=== PATIENT | female | born 1950 | race Caucasian/White ===

== ENCOUNTER 2018-08-30 08:21 | Day surgery (SDC) | payer MEDICARE, OTHER, SELFPAY ==
--- NOTE | 2018-08-30 | COLBX_PTH ---
PATIENT: VELMA AUGUSTINE LOC: EN U#:[id number] AGE/SX: 68/F ROOM: RE08/30/[address]: Dr. Marilynn Gallegos MD : [id number] BED: DIS: 08/30/2018 SPEC #: [id number] RECD: 08/30/18 11:51 STATUS: OMAR EMELINA #: [id number] ÁNGELA: 08/30/18 00:[address]: Marilynn Gallegos DEPT: SURGICAL PATHOLOGY RECD BY: Sobeida Mercer ENTERED: 08/30/18 14:20 SP TYPE: COLON BX OTHR DR: Dr. Kanwal Guillermo MD Tissues: A - Cecum, NOS B - Ascending colon C - Ascending colon D - Ascending colon E - Ascending colon F - Transverse colon G - Transverse colon Procedures: Surgery Specimen Level IV HEADER OPERATION: Colonoscopy, open access (MAC) PRE-OP DIAGNOSIS: Screening TISSUE SUBMITTED: A. Cecal polyp biopsy, B. Biopsy of proximal ascending colon polyps, C. Biopsy of proximal ascending colon lipoma, D. Biopsy of mid ascending lipoma, E. Biopsy of mid ascending polyp, F. Biopsy of proximal transverse colon polyp, G. Biopsy of mid transverse colon polyp MICROSCOPIC DIAGNOSIS A. Cecal polyp, biopsy: Fragments of tubular adenoma. B. Proximal ascending polyps, biopsy: Fragments of tubular adenoma. C. Proximal ascending colon lipoma: Tubular adenoma. Fragments of benign colonic mucosa. See comment. D. Biopsy of mid ascending lipoma: Fragments of benign colonic mucosa. See comment. E. Mid ascending colon polyp, biopsy: Tubular adenoma. F. Proximal transverse colon polyp, biopsy: Tubular adenoma. G. Mid transverse colon polyp, biopsy: Fragments of tubular adenoma. AM:bettina 08/31/18 COMMENT C. A lipomatous proliferation is not present. Clinical correlation is suggested. D. A lipomatous proliferation is not present. Clinical correlation is suggested. MICROSCOPIC DESCRIPTION Slides are reviewed. GROSS DESCRIPTION A - Received in fixative is one container labeled with the patient's name and designated cecum polyp biopsy. The specimen consists of multiple irregular fragments of light fleipe soft tissue that in aggregate measure 0.5 x 0.5 x 0.1 cm. The specimen is totally submitted in one cassette. B - Received in fixative is one container labeled with the patient's name and designated biopsy of proximal ascending colon polyp. The specimen consists of multiple irregular fragments of light felipe soft tissue that in aggregate measure 1.5 x 0.4 x 0.1 cm. The specimen is totally submitted in one cassette. C - Received in fixative is one container labeled with the patient's name and designated biopsy of proximal ascending colon lipoma. The specimen consists of multiple irregular fragments of light felipe soft tissue that in aggregate measure 1 x 0.3 x 0.1 cm. The specimen is totally submitted in one cassette. D - Received in fixative is one container labeled with the patient's name and designated biopsy of mid ascending lipoma. The specimen consists of multiple irregular fragments of light felipe soft tissue that in aggregate measure 0.6 x 0.3 x 0.1 cm. The specimen is totally submitted in one cassette. E - Received in fixative is one container labeled with the patient's name and designated biopsy of mid ascending polyp. The specimen consists of one irregular fragment of light feliep soft tissue that measures 0.3 x 0.3 x 0.1 cm. The specimen is totally submitted in one cassette. F - Received in fixative is one container labeled with the patient's name and designated biopsy of proximal transverse colon polyp. The specimen consists of one irregular fragment of light felipe soft tissue that measures 0.3 x 0.3 x 0.1 cm. The specimen is totally submitted in one cassette. G - Received in fixative is one container labeled with the patient's name and designated biopsy of mid transverse polyp. The specimen consists of multiple irregular fragments of light felipe soft tissue that in aggregate measure 0.6 x 0.5 x 0.1 cm. The specimen is totally submitted in one cassette. / SJ:rg 08/30/18 TC:5 CPT: 80204 x7
[2018-08-30 08:47] VITALS: BP 110/84; PULSE 100; RESP 18; TEMP 36.3; O2SAT 96; BMI 35.9
--- NOTE | 2018-08-30 09:12 | H&P.OPEN ---
History of Present Illness Date of Admission: 08/30/18 The patient is a 68 year old F presents for screening colonoscopy. Patient's last colonoscopy was by Dr. Esparza 11 years ago per the patient is negative per the patient. Patient is adopted unsure of her family history. Patient states she normally has bowel movements daily occasionally every other day. She may have a small amount of blood in her stool may be once every 2 months. Patient denies any abdominal pain, nausea, vomiting. Past Medical/Surgical History - Planned Operation Planned Operative Procedure/s: cscope open access Date of Operative Procedure: 08/30/18 Permit Signed: No S.O.S: No Is This Patient Having a Total Joint: No - Previous Hospitalizations/Surgeries HX Hospitalizations: No HX of Surgeries: tubal ligation. Laparoscopic cholecystectomy. cscope. left tkr Any Problems With Anesthesia: No You/Your Family Experience Fever (Hyperthermia) With Anes: No - adopted Cholinesterase deficiency: No - Cardiovascular Hx Chest Pain within Last 2 months: No Hx of Irregular Heartbeat and/or Afib: No Hx Heart Attack: No Hx Congestive Heart Failure: No Hx Rheumatic Fever: No Hx Hypertension: No Hx Internal Defibrillator: No Hx Pacemaker: No Hx Cardiac Catheterization: No Hx Cardiac Surgery/Stents/Etc.: No Hx Stress Test: Yes - many yrs ago HX Edema: No Hx Pain in Legs when Walking/Leg Cramps: No - Respiratory Chronic Cough: No HX of Shortness of Breath: Yes - sob with 2 flights of stairs Hx Chronic Obstructive Pulmonary Disease (COPD): No Hx Asthma: No Hx Emphysema: No Hx Sleep Apnea: No Hx Oxygen Use at Home: No Hx Respiratory Tract Infection/Cold (presently): No Do You Snore Loudly (louder than talking or can be heard): No Do You Often Feel Tired/ Fatigued/ Sleepy Dring Daytime?: No Has Anyone Observed You Stop Breathing During Sleep?: No Result (for STOP score): Negative Hx Smoking: No Smoking Status: Never smoker - Gastrointestinal Hx Gastroesophageal Reflux: Yes - in the past Controlled With Meds: No - no meds currently Hx Gastrointestinal Disorders: Yes - ibs Hx Gastrointestinal Bleed: No Hx Ulcer: No Hx Hiatal Hernia: No Difficulty Chewing/Swallowing: No Recent Onset of Swallowing Problems: No Special diet followed at home: Yes - ada Hx Unplanned Weight Loss of 20#: No HX Unplanned Weight Gain of 20#: No - Neurological Hx Seizures: No HX Syncope/Blackout Spells/Unconsciousness: Yes - vertigo Hx CVA/Stroke: No Hx Transient Ischemic Attacks (TIA): No Hx Multiple Sclerosis: No Hx Parkinson's Disease: No Hx Head/Neck Injury: No Hx Headaches: No Hx Back Injury/Pain: Yes - lower back pain prn Recent Onset of Speech Difficulty: No Restless Legs: No Does patient have nerve stimulator: No Patient instructed to have device shut off: No Rep notified?: No - Blood Disorder Hx Leukemia: No Bleeding Tendencies: Yes - brusies easily Hx Deep Vein Thrombosis: Yes - dvt to leg in the past Hx High Cholesterol: Yes - on med Blood Transmitted Disease: No Hx Hepatitis: No Hx Cirrhosis: No Hx Anemia: No Hx Blood Disorders: No - Reproduction Is Patient Lactating: No Hx Hysterectomy: No Hx Tubal Ligation: Yes Are You Post Menopause: Yes - Genitourinary Hx Renal Disease: No Hx Dialysis: No - Musculoskeletal Hx Arthritis: Yes Hx Rheumatoid Arthritis: No Hx Gout: No Recent Onset of an Orthopedic Problem: No - Endocrine Hx Diabetes: Yes Insulin: No Thyroid Disease: No Hx Steroid Therapy: No - Psycho/Social Hx Substance Use: No Hx Alcohol Use: No Hx Anxiety: Yes - prn med Hx Depression: Yes - on med Hx Dementia: No - Miscellaneous Hx Cancer: No Recent Exposure to Contagious Disease: No Active MRSA: No Hx of C-Diff: No Any Loose Teeth: No Allergies acetaminophen [From Vicodin] Allergy (Verified 08/28/18 11:11) Unknown hydrocodone [From Vicodin] Allergy (Verified 08/28/18 11:11) Unknown ibuprofen [From Motrin] Allergy (Verified 08/28/18 11:11) Unknown lovastatin [From Advicor] Allergy (Verified 08/28/18 11:11) Unknown niacin [From Advicor] Allergy (Verified 08/28/18 11:11) Unknown - Discharge Is Pt Admitted From a Senior Living, or a [facility]: No Who Could Help: family After D/C, Where Do you Plan to Go: Return Home - From the PAT History Number of Risk Factors: 5 - Physical Exam General: Alert, Oriented x3, Cooperative, No apparent distress HEENT: Atraumatic Lungs: Normal air movement Cardiovascular: Regular rate Abdomen: Soft, Non Tender - No peritoneal signs, Non-Distended, Obese Extremities: No clubbing, No cyanosis, No edema Neurological: Cranial nerves II-XII grossly intact Psych/Mental Status: Normal Affect Vital Signs Temp Pulse Resp BP Pulse Ox 97.3 F L 100 18 110/84 H 96 08/30/18 08:47 08/30/18 08:47 08/30/18 08:47 08/30/18 08:47 08/30/18 08:47 Oxygen Delivery Method Room Air Weight: 239 lb 6.752 oz Body Mass Index (BMI) 35.9 Finger Stick Blood Glucose 241 Assessment/Plan 68-year-old female for screening for colon cancer Surgery Risks - Colonoscopy I discussed with the patient the risks of the procedure: Yes Risks Include but are not Limited To: Risks include but are not limited to: Bleeding, perforation requiring further surgery, inability to complete colonoscopy requiring barium enema. Patient no further questions this time.
[2018-08-30 09:26] LABS: Bedside Glucose 366 mg/dL (70-110)
[2018-08-30 10:25] VITALS: BP 110/84; BP 148/94; PULSE 103; RESP 16; TEMP 36.7; O2SAT 92
--- NOTE | 2018-08-30 10:28 | OP.ENDO_ITS ---
08/30/2018 Kanwal Guillermo [address] [place] [address] Re : Colonoscopy procedure for Tiana Sales Dear Dr. Guillermo This procedure was performed on Thursday, August 30, 2018. My impressions and recommendations are as follows: Impressions : - Six less than 5 mm polyps in the proximal transverse colon, in the mid transverse colon, in the proximal ascending colon, in the mid ascending colon and in the cecum, removed with a cold biopsy forceps. Resected and retrieved. - Small lipoma in the proximal ascending colon. Biopsied. - Medium-sized lipoma in the mid ascending colon. Biopsied. - The examination was otherwise normal on direct and retroflexion views. Recommendations : - Discharge patient to home. - Repeat colonoscopy in 3 years for surveillance based on pathology results. - Continue present medications. My findings are described in the full procedure note, which is enclosed. If I can be of further assistance, please feel free to contact me at Doctor phone number(s): , Work: . Sincerely, MD Marilynn Horowitz MD 08/30/2018 10:28:14 AM This report has been signed electronically.
[2018-08-30 10:30] VITALS: BP 110/84; BP 150/91; PULSE 100; RESP 16; O2SAT 92
[2018-08-30 10:35] VITALS: BP 110/84; BP 144/69; PULSE 99; RESP 16; O2SAT 93
[2018-08-30 10:40] VITALS: BP 110/84; BP 135/75; PULSE 96; RESP 16; TEMP 36.4; O2SAT 93
[2018-08-30 11:23] VITALS: BP 110/84
== END 2018-08-30 11:00 | disposition home or self-care (01) ==
LOC: EN 08:23 → AC 08:24
PROVIDERS: Family Provider Internal Medicine; PCP Internal Medicine; Referring Provider Internal Medicine; Visit Provider Surgery
PROC: 0DJD8ZZ Inspection of Lower Intestinal Tract, Via Natural or Artificial Opening Endoscopic (ICD-10-PCS; CPT 45378; principal; 2018-08-30 09:25)
DX: Z12.11 Encounter for screening for malignant neoplasm of colon (principal); D12.0 Benign neoplasm of cecum; D12.2 Benign neoplasm of ascending colon; D12.3 Benign neoplasm of transverse colon; D17.5 Benign lipomatous neoplasm of intra-abdominal organs; K58.9 Irritable bowel syndrome, unspecified; E11.9 Type 2 diabetes mellitus without complications; E78.00 Pure hypercholesterolemia, unspecified; F32.9 Major depressive disorder, single episode, unspecified; F41.9 Anxiety disorder, unspecified; Z79.84 Long term (current) use of oral hypoglycemic drugs; Z79.899 Other long term (current) drug therapy; Z88.5 Allergy status to narcotic agent; Z88.6 Allergy status to analgesic agent; Z78.0 Asymptomatic menopausal state; Z86.718 Personal history of other venous thrombosis and embolism
CPT/HCPCS: 45380; 82962; 88305; J7120; J2405

== ENCOUNTER → 2019-09-10 07:04 | Outpatient (CLI) | payer MEDICARE, OTHER, SELFPAY | PROVIDERS: PCP Internal Medicine; Referring Provider Nurse Practitioner; Visit Provider Nurse Practitioner | DX: R55 Syncope and collapse (principal) | CPT/HCPCS: 95819 ==

== ENCOUNTER 2020-05-10 11:19 | Emergency (ER) | payer MEDICARE, OTHER, SELFPAY ==
[2020-05-10 11:20] VITALS: BP 163/77; PULSE 115; RESP 16; TEMP 37; O2SAT 96; BMI 36.6
[2020-05-10 11:29] VITALS: BP 163/77; PULSE 115; RESP 16; TEMP 37; O2SAT 96
[2020-05-10] MEDS: 0.9% Normal Saline 1,000 ML 1000 ML IV (11:32)
[2020-05-10 11:37] LABS: Absolute Lymphocyte Count 0.89 X10^3/uL (0.83-4.51); Absolute Neutrophil Count 1.8 X10^3/uL (2.0-7.7); Basophil# 0.01 X10^3/uL; Basophil% 0.3 % (0-1); Eosinophil# 0.08 X10^3/uL; Eosinophils% 2.6 % (0-5); Hematocrit 40.3 % (37-47); Hemoglobin 13.1 g/dL (12.0-15.0); Lymphocyte # 0.89 X10^3/ul (4.0); Lymphocyte % 29.5 % (19-41); Mean Corp Hgb Conc 32.5 g/dL (32-36); Mean Corpuscular Hgb 28.1 pg (27.0-32.0); Mean Corpuscular Volume 86.3 fL (81-99); Mean Platelet Vol. 10.5 fl (6.2-12.0); Monocyte# 0.18 X10^3/uL; NRBC Flagged by Analyzer 0 % (0-5); Neutrophil # 1.84 X10^3/uL (2.7-7.7); Neutrophil % 60.9 % (47-70); Platelet Count 211 K/mm3 (150-450); RBC Distribution Width CV 13.2 % (11.6-14.6); RBC Distribution Width SD 41.2 fl (35.1-43.9); Red Blood Count 4.67 M/mm3 (4.2-5.4)
[2020-05-10] MEDS: Ondansetron 4 MG/2 ML Vial IV ×2 (11:37→13:00)
[2020-05-10] MEDS: Morphine 4 MG/ML Syringe IV (11:37)
--- NOTE | 2020-05-10 11:39 | ED.VISSUMM ---
- ER Visit Summary Date of Service: 05/10/20 Chief Complaint: Diarrhea History of Present Illness: The patient is a [address] Guillermo. She reports approximately 2 weeks ago she was placed on doxycycline for a sinus infection. She has diarrhea that began 2 days later. She stopped taking the doxycycline 5 days ago, but continues to have diarrhea. She reports she is having this 1-2 times per day. She denies any blood in her stools or black tarry stools. She denies abdominal pain. She reports she has been nauseated, but has not vomited. States that she is lightheaded. This increases when she stands. She has not passed out. Patient denies sick contacts. Has not been camping out of the country. No possible bad food exposure. Does not drink well water. Physical Examination: Vitals: Stable. Afebrile. General: Well-nourished and well-developed. Head: Normocephalic atraumatic. Neck: Supple, no lymphadenopathy. No JVD. Nontender. Cardiovascular: Tachycardic regular rhythm. No murmurs. Respiratory: No respiratory distress. Clear to auscultation bilaterally. Abdominal: Soft, mild diffuse tenderness to palpation, nondistended, normal bowel sounds. No guarding, rebound, or peritoneal signs. Back: Nontender. Extremities: Nontender, no edema. Skin: Normal color, no rash. Neurologic: Alert and oriented ?3. Cranial nerves II through XII are intact. Normal strength and sensation. Psych: Normal affect. Test Results: CBC shows a white count of 3.0. Chem-7 shows a potassium of 3.3, glucose 284, creatinine 1.03. LFTs are normal. Lipase is 58. Emergency Department Course and Treatment: Patient had an IV placed. She was given a liter of normal saline. She was given morphine and Zofran IV. She is resting comfortably. She has not had diarrhea while here. Treatment Plan: I did discuss with patient the risk of C. difficile. She will be discharged with Zofran. Instructed to push fluids. Follow-up her primary care physician in 2 days for another exam. Return to the emergency department for any worsening symptoms. Disposition: To home in improved and stable condition. Impression: 1. Diarrhea. This note was generated with [employer] CRM[employer] software. It may contain incorrect words, spelling, and punctuation that were not noted in review of the chart prior to signing ED Disposition - Plan for ED Patient: Instructions: ED Diarrhea, Unknown Cause Prescriptions: Ondansetron [Zofran Odt] 4 mg PO Q8H PRN PRN #10 tab PRN Reason: Nausea Referrals: Kanwal Guillermo MD [Primary Care Provider] - 2 Days
[2020-05-10 11:53] LABS: ALB/GLOB Ratio 0.8 RATIO (0.9-2.4); AST(SGOT) 18 U/L (15-37); Alanine Aminotransfer ALT/SGPT 21 U/L (13-56); Albumin, Serum 3.4 g/dL (3.2-5.0); Alkaline Phosphatase 88 U/L (45-117); Anion Gap 6 (5-15); BUN 8 mg/dL (7-18); BUN/Creat Ratio 7.8 RATIO (10-20); Calcium,Total 8.5 mg/dL (8.5-10.1); Chloride 101 mmol/L (98-107); Creatinine, Serum 1.03 mg/dL (0.55-1.02); EST Glomerular Filtration Rate 57 mL/min (>60); Est Glom Filt Rate - Afr Amer 69 mL/min (>60); Estimated Creatinine Clearance 55.39 ml/min; Globulin 4.1 g/dL (2.2-4.2); Glucose 284 mg/dL (74-106); Lipase 58 U/L (73-393); Potassium 3.3 mmol/L (3.5-5.1); Protein, Total 7.5 g/dL (6.4-8.2); Sodium Level 136 mmol/L (136-145)
[2020-05-10] MEDS: 0.9% Normal Saline 1,000 ML 999 ML IV (12:48)
[2020-05-10 14:20] VITALS: PULSE 100; RESP 17; O2SAT 99
== END 2020-05-10 14:37 | disposition home or self-care (01) ==
LOC: ED 11:46
PROVIDERS: Emergency Provider Emergency Medicine; PCP Internal Medicine
DX: R19.7 Diarrhea, unspecified (principal); R11.0 Nausea; R42 Dizziness and giddiness; E11.9 Type 2 diabetes mellitus without complications; Z79.84 Long term (current) use of oral hypoglycemic drugs; Z79.899 Other long term (current) drug therapy
CPT/HCPCS: 80053; 83690; 85025; 96361; 96374; 96375; 96376; 99285; J7030; J2405

== ENCOUNTER 2020-05-22 09:08 | Outpatient (RCR) | payer MEDICARE, OTHER, SELFPAY ==
[2020-05-22] MEDS: COVID-19 VACC, MRNA(PFIZER)/PF 30 MCG/0.3 ML SYRINGE IM (17:29)
[2020-06-12] MEDS: COVID-19 VACC, MRNA(PFIZER)/PF 30 MCG/0.3 ML SYRINGE IM (16:37)
== END 2020-08-26 23:59 ==
LOC: IMMUN 09:08
PROVIDERS: PCP Internal Medicine; Referring Provider Family Medicine; Visit Provider Family Medicine
DX: Z23 Encounter for immunization (principal)
CPT/HCPCS: 0001A; 0002A; 91300

== ENCOUNTER 2021-10-05 08:03 | Day surgery (SDC) | payer MEDICARE, OTHER, SELFPAY ==
[2021-10-05] MEDS: Insulin Lispro 100 UNIT/ML INSULN.PEN 6 UNIT SC (08:32)
--- NOTE | 2021-10-05 08:48 | EKG12_ITS ---
Test Reason : PREOP Blood Pressure : / mmHG Vent. Rate : 132 BPM Atrial Rate : 097 BPM P-R Int : 000 ms QRS Dur : 096 ms QT Int : 352 ms P-R-T Axes : 000 -51 019 degrees QTc Int : 521 ms Supraventricular tachycardia Low voltage QRS Left anterior fascicular block Abnormal ECG When compared with ECG of 01-JUL-2012 17:28, Left anterior fascicular block is now Present Confirmed by SOO GOLDEN, STEVE ([id number]), assignment editor GAVIOTA LAW ([id number]) on 10/14/2021 1:06:50 PM Referred By: Kanwal Guillermo Confirmed By:STEVE VANN MD
[2021-10-05 08:55] LABS: Bedside Glucose 389 mg/dL (74-106)
--- NOTE | 2021-10-05 08:55 | HP.PCM_ITS ---
HPI - General HPI Narrative VELMA AUGUSTINE, is a 71 F who presents for colonoscopy due to history of colon polyps last scope was in August 2018. Recommended 3-year follow-up. Patient states she has IBS and some days she will have diarrhea other days she had diarrhea may not go for couple days. Denies any blood. Patient did her prep wi th simply lemonade and she is a diabetic that is her blood sugar was 389 on arrival patient states she was not feeling well she is also tachycardic 132 patient did not have any Gatorade or electrolyte drink with her prep as well. Patient is currently getting IV fluids also get an EKG and troponins that were negative and AC. Patient denies any family history of colon cancer. Denies any chronic abdominal pain/nausea/vomiting. [facility] Medical History (Updated 10/05/21 @ 09:[address] Marilynn Gallegos MD) Anxiety Anxiety Arthritis Back pain Blackout Diabetes Diabetes mellitus DVT (deep venous thrombosis) High cholesterol History of colon polyps History of IBS History of stress test Hyperlipidemia Non-smoker Post-menopausal Wears glasses Home Medications Lovastatin [Mevacor] 40 mg PO DAILY 07/24/16 [History Last Taken Unknown] alprazolam 0.5 mg tablet (Xanax) 0.5 mg PO TID PRN Anxiety 07/24/16 [History Last Taken 08/30/18] diphenoxylate-atropine 2.5 mg-0.025 mg tablet (Lomotil) 1 ea PO DAILY PRN Diarrhea 07/24/16 [History Last Taken Unknown] fluticasone propionate 50 mcg/actuation nasal spray,suspension 2 spray DAILY 07/24/16 [History Last Taken Unknown] glimepiride 2 mg tablet 2 mg PO DAILY 07/24/16 [History Last Taken Unknown] meclizine 25 mg chewable tablet 25 mg PO DAILY PRN Vertigo 07/24/16 [History Last Taken Unknown] metformin 500 mg tablet 500 mg PO BIDCM 07/24/16 [History Last Taken Unknown] nortriptyline 10 mg capsule 10 mg PO DAILY 07/24/16 [History Last Taken Unknown] tramadol 50 mg tablet (Ultram) 50 mg PO DAILY PRN Pain 07/24/16 [History Last Taken Unknown] venlafaxine 150 mg tablet,extended release 24 hr 150 mg PO DAILY 05/06/17 [History Last Taken Unknown] ondansetron 4 mg disintegrating tablet 4 mg PO Q8H PRN PRN Nausea #10 tabs 05/10/20 [Rx Last Taken Unknown] pioglitazone 15 mg tablet 15 mg PO DAILY 05/10/20 [History Last Taken Unknown] Allergy/AdvReac Type Severity Reaction Status Date / Time acetaminophen [From Vicodin] Allergy Unknown Verified 09/30/21 15:21 doxycycline Allergy Diarrhea Verified 09/30/21 15:21 hydrocodone [From Vicodin] Allergy Unknown Verified 09/30/21 15:21 ibuprofen [From Motrin] Allergy Unknown Verified 09/30/21 15:21 lovastatin [From Advicor] Allergy Unknown Verified 09/30/21 15:21 niacin [From Advicor] Allergy Unknown Verified 09/30/21 15:21 Surgical History (Updated 09/30/21 @ 15:31 by Cici Neri) History of colonoscopy with polypectomy History of total left knee replacement Hx laparoscopic cholecystectomy Hx of colonoscopy Hx of tubal ligation Social History adopted: Yes Smoking Status: Never smoker Past Medical/Surgical History Planned Operation Planned Operative Procedure/s: COLONOSCOPY S.O.S: No Previous Hospitalizations/Surgeries HX Hospitalizations: No HX of Surgeries: tubal ligation Laparoscopic cholecystectomy cscope left tkr Any Problems With Anesthesia: No You/Your Family Experience Fever (Hyperthermia) With Anes: No (adopted) Cholinesterase deficiency: No Cardiovascular Hx Chest Pain within Last 2 months: No Hx of Irregular Heartbeat and/or Afib: No Hx Heart Attack: No Hx Congestive Heart Failure: No Hx Rheumatic Fever: No Hx Hypertension: No Hx Internal Defibrillator: No Hx Pacemaker: No Hx Cardiac Catheterization: No Hx Cardiac Surgery/Stents/Etc.: No Hx Stress Test: Yes (many yrs ago) Hx Pain in Legs when Walking/Leg Cramps: No Respiratory Chronic Cough: No HX of Shortness of Breath: Yes (sob with 2 flights of stairs) Hx Chronic Obstructive Pulmonary Disease (COPD): No Hx Asthma: No Hx Emphysema: No Hx Sleep Apnea: No Hx Respiratory Tract Infection/Cold (presently): No Do You Snore Loudly (louder than talking or can be heard): No Do You Often Feel Tired/ Fatigued/ Sleepy Dring Daytime?: No Has Anyone Observed You Stop Breathing During Sleep?: No Result (for STOP score): Negative Hx Smoking: No Smoking Status: Never smoker Gastrointestinal Hx Gastroesophageal Reflux: Yes (in the past) Controlled With Meds: No (no meds currently) Hx Gastrointestinal Disorders: Yes (ibs) Hx Gastrointestinal Bleed: No Hx Ulcer: No Hx Hiatal Hernia: No Difficulty Chewing/Swallowing: No Special diet followed at home: Yes (ada) Hx Unplanned Weight Loss of 20#: No HX Unplanned Weight Gain of 20#: No Neurological Hx Seizures: No HX Syncope/Blackout Spells/Unconsciousness: Yes (vertigo) Hx Transient Ischemic Attacks (TIA): No Hx Multiple Sclerosis: No Hx Parkinson's Disease: No Hx Head/Neck Injury: No Hx Headaches: No Hx Back Injury/Pain: Yes (lower back pain prn) Recent Onset of Speech Difficulty: No Restless Legs: No Does patient have nerve stimulator: No Blood Disorder Hx Leukemia: No Bleeding Tendencies: Yes (brusies easily) Hx Deep Vein Thrombosis: Yes (dvt to leg in the past) Hx High Cholesterol: Yes (on med) Blood Transmitted Disease: No Hx Hepatitis: No Hx Cirrhosis: No Hx Anemia: No Hx Blood Disorders: No Reproduction Is Patient Lactating: No Hx Hysterectomy: No Hx Tubal Ligation: Yes Are You Post Menopause: Yes Genitourinary Hx Renal Disease: No Hx Dialysis: No Musculoskeletal Hx Arthritis: Yes Hx Rheumatoid Arthritis: No Hx Gout: No Recent Onset of an Orthopedic Problem: No Endocrine Hx Diabetes: Yes Insulin: No Thyroid Disease: No Hx Steroid Therapy: No Psycho/Social Hx Substance Use: No Hx Alcohol Use: No Hx Anxiety: Yes (prn med) Hx Depression: Yes (on med) Hx Dementia: No Miscellaneous Hx Cancer: No Recent Exposure to Contagious Disease: No Hx of C-Diff: No Any Loose Teeth: No Allergies acetaminophen [From Vicodin] Allergy (Verified 09/30/21 15:21) Unknown doxycycline Allergy (Verified 09/30/21 15:21) Diarrhea hydrocodone [From Vicodin] Allergy (Verified 09/30/21 15:21) Unknown ibuprofen [From Motrin] Allergy (Verified 09/30/21 15:21) Unknown lovastatin [From Advicor] Allergy (Verified 09/30/21 15:21) Unknown niacin [From Advicor] Allergy (Verified 09/30/21 15:21) Unknown Discharge Is Pt Admitted From a Prison, or a Senior Care: No After D/C, Where Do you Plan to Go: Return Home From the [facility] History Number of Risk Factors: 5 Physical Exam Const alert, oriented x3 and no apparent distress HEENT normocephalic and head/scalp atraumatic Resp normal respiratory effort Cardio regular rate GI soft to palpation and non-tender; Negative for non-distended Palpation: Negative for guarding Extremity no clubbing, cyanosis or edema Neuro CN's II-XII intact bilaterally Psych mental status grossly normal Assessment & Plan Assessment/Plan (1) History of colon polyps: Surgery Risks - Colonoscopy Risks Include but are not Limited To: Risks include but are not limited to: Bleeding, perforation requiring further surgery, inability to complete colonoscopy requiring barium enema.
[2021-10-05 09:21] VITALS: BP 160/78; PULSE 136; RESP 18; TEMP 35.8; O2SAT 96; BMI 37.0
[2021-10-05 09:21] LABS: Hematocrit 37.5 % (37-47); Hemoglobin 12.7 g/dL (12.0-15.0); Mean Corp Hgb Conc 33.9 g/dL (32-36); Mean Corpuscular Hgb 29.1 pg (27.0-32.0); Mean Platelet Vol. 10.2 fl (6.2-12.0); Platelet Count 222 K/mm3 (150-450); RBC Distribution Width CV 14.2 % (11.6-14.6); RBC Distribution Width SD 44.7 fl (35.1-43.9); Red Blood Count 4.36 M/mm3 (4.2-5.4); White Blood Count 5.6 K/mm3 (4.4-11.0)
[2021-10-05] MEDS: Lactated Ringers 1,000 ML 999 ML IV (09:31)
[2021-10-05 09:39] LABS: ALB/GLOB Ratio 0.9 RATIO (0.9-2.4); AST(SGOT) 18 U/L (15-37); Alanine Aminotransfer ALT/SGPT 16 U/L (13-56); Albumin, Serum 3.5 g/dL (3.2-5.0); Alkaline Phosphatase 76 U/L (45-117); Anion Gap 8 (5-15); BUN 9 mg/dL (7-18); Calcium,Total 8.8 mg/dL (8.5-10.1); Chloride 100 mmol/L (98-107); Creatinine, Serum 1.13 mg/dL (0.55-1.02); EST Glomerular Filtration Rate 51 mL/min (>60); Est Glom Filt Rate - Afr Amer 61 mL/min (>60); Globulin 4.1 g/dL (2.2-4.2); Glucose 389 mg/dL (74-106); Potassium 4.1 mmol/L (3.5-5.1); Protein, Total 7.6 g/dL (6.4-8.2); Sodium Level 136 mmol/L (136-145); Troponin-I HS 5 pg/mL (3.0-54.0)
[2021-10-05 10:01] LABS: Bedside Glucose 348 mg/dL (74-106)
[2021-10-05 10:40] VITALS: BP 154/70; PULSE 128; RESP 16
[2021-10-05 11:01] LABS: Bedside Glucose 319 mg/dL (74-106)
[2021-10-05 11:09] VITALS: BP 125/84; PULSE 114; RESP 16; O2SAT 98
[2021-10-05 11:18] VITALS: BP 117/53; PULSE 110; RESP 18; O2SAT 99
[2021-10-05 11:30] VITALS: BP 126/79; PULSE 94; RESP 16; O2SAT 99
[2021-10-05 12:00] VITALS: BP 121/83; PULSE 97; RESP 16; O2SAT 99
--- NOTE | 2021-10-05 12:11 | SUR.PREOP ---
AT 1207 PATIENT DISCHARGED FROM [facility] AND TRANSFERRED TO [facility] EMERGENCY DEPARTMENT FOR FURTHER EVALUATION.
--- NOTE | 2021-10-05 15:05 | SUR.PREOP ---
0845 UPON ENTRY TO ROOM PT DIAPHORETIC AND C/O NOT FEELING WELL. SHE REPORTS SHE IS NAUSEOUS. DAUGHTER AT BEDSIDE. PT REPORTED DRINKING LEMONADE FOR HER BOWEL PREP WITH THE MIRALAX. PT IS DIABETIC.
--- NOTE | 2021-10-05 15:08 | SUR.PREOP ---
0900 ANESTHESIA NOTIFIED OF PT RAPID HEAR RATE. LABS DRAWN. INSULIN GIVEN PER ORDER. PT DENIED CHEST PAIN. DENIED SHORTNESS OF BREATH.
--- NOTE | 2021-10-05 15:10 | SUR.PREOP ---
[address] CHAUDHARY. PT TAKEN TO PACU TO RECEIVE LABETOLOL IV FOR RAPID HEART RATE. DR ABBOTT SPOKE WITH PT ALSO.
== END 2021-10-05 12:07 | disposition home or self-care (01) ==
LOC: EN 08:06 → AC 08:07
PROVIDERS: Anesthesiology; PCP Internal Medicine; Referring Provider Internal Medicine; Visit Provider Surgery
DX: Z12.11 Encounter for screening for malignant neoplasm of colon (principal); E11.65 Type 2 diabetes mellitus with hyperglycemia; R00.2 Palpitations; R00.0 Tachycardia, unspecified; Z53.09 Procedure and treatment not carried out because of other contraindication; Z79.84 Long term (current) use of oral hypoglycemic drugs; Z86.010 Personal history of colon polyps; E78.00 Pure hypercholesterolemia, unspecified; K58.9 Irritable bowel syndrome, unspecified; F41.9 Anxiety disorder, unspecified; Z78.0 Asymptomatic menopausal state; Z79.899 Other long term (current) drug therapy; Z96.652 Presence of left artificial knee joint
CPT/HCPCS: G0121; 80048; 80053; 82962; 84484; 85025; 85027; 93005; 96360; 99284; J7030; J7120; A4216; J2405

== ENCOUNTER 2021-10-05 12:13 | Emergency (ER) | payer MEDICARE, OTHER, SELFPAY ==
[2021-10-05 12:14] VITALS: BP 147/98; PULSE 106; RESP 18; TEMP 35.8; O2SAT 98; BMI 36.6
[2021-10-05 12:15] VITALS: BP 151/77; PULSE 78; RESP 18; TEMP 36.8; O2SAT 95; BMI 35.4
--- NOTE | 2021-10-05 12:34 | ED.RN ---
ENTRY AT 1215 ON WRONG PT. ENTRY ADJUSTED AND PLACED WITH PROPER PT. CHARGE NURSE AWARE
--- NOTE | 2021-10-05 12:38 | EKG12_ITS ---
Test Reason : cp Blood Pressure : / mmHG Vent. Rate : 105 BPM Atrial Rate : 105 BPM P-R Int : 234 ms QRS Dur : 098 ms QT Int : 324 ms P-R-T Axes : 067 -32 045 degrees QTc Int : 428 ms Sinus tachycardia with 1st degree A-V block Left axis deviation Low voltage QRS (LIMB LEADS) Abnormal ECG Confirmed by BRITTANY GOLDEN, JOURDAN ([id number]), editor sound SALVADOR YOUNG ([id number]) on 10/06/2021 10:25:45 AM Referred By: Yvonne/christie Confirmed By:JOURDAN SOTO MD
--- NOTE | 2021-10-05 12:40 | EDS_ITS ---
HPI History of Present Illness Chief Complaint: Palpitations Informant: patient Narrative Narrative: 71-year-old female presenting due to elevated heart rate and elevated blood sugar. Patient started a bowel prep yesterday for routine colonoscopy today. She states that she was drinking lemonade throughout the bowel prep and did not think about her diabetes at the time. She had several loose bowel movements throughout the night. In preop clearance her heart rate was 140. Blood sugar was high. She was given IV fluids, insulin and labetalol prior to arrival. She denies chest pain or shortness of breath. Denies syncope. Denies current complaints. Recent Illness/Hospitalization: No [facility] Medical History Anxiety Anxiety Arthritis Back pain Blackout Diabetes Diabetes mellitus DVT (deep venous thrombosis) High cholesterol History of colon polyps History of IBS History of stress test Hyperlipidemia Non-smoker Post-menopausal Wears glasses Home Medications Lovastatin [Mevacor] 40 mg PO DAILY 07/24/16 [History Last Taken Unknown] alprazolam 0.5 mg tablet (Xanax) 0.5 mg PO TID PRN Anxiety 07/24/16 [History Last Taken 08/30/18] diphenoxylate-atropine 2.5 mg-0.025 mg tablet (Lomotil) 1 ea PO DAILY PRN Diarrhea 07/24/16 [History Last Taken Unknown] fluticasone propionate 50 mcg/actuation nasal spray,suspension 2 spray DAILY 07/24/16 [History Last Taken Unknown] glimepiride 2 mg tablet 2 mg PO DAILY 07/24/16 [History Last Taken Unknown] meclizine 25 mg chewable tablet 25 mg PO DAILY PRN Vertigo 07/24/16 [History Last Taken Unknown] metformin 500 mg tablet 500 mg PO BIDCM 07/24/16 [History Last Taken Unknown] nortriptyline 10 mg capsule 10 mg PO DAILY 07/24/16 [History Last Taken Unknown] tramadol 50 mg tablet (Ultram) 50 mg PO DAILY PRN Pain 07/24/16 [History Last Taken Unknown] venlafaxine 150 mg tablet,extended release 24 hr 150 mg PO DAILY 07/24/16 [History Last Taken Unknown] ondansetron 4 mg disintegrating tablet 4 mg PO Q8H PRN PRN Nausea #10 tabs 05/10/20 [Rx Last Taken Unknown] pioglitazone 15 mg tablet 15 mg PO DAILY 05/10/20 [History Last Taken Unknown] Allergy/AdvReac Type Severity Reaction Status Date / Time acetaminophen [From Vicodin] Allergy Unknown Verified 10/05/21 12:18 doxycycline Allergy Diarrhea Verified 10/05/21 12:18 hydrocodone [From Vicodin] Allergy Unknown Verified 10/05/21 12:18 ibuprofen [From Motrin] Allergy Unknown Verified 10/05/21 12:18 lovastatin [From Advicor] Allergy Unknown Verified 10/05/21 12:18 niacin [From Advicor] Allergy Unknown Verified 10/05/21 12:18 Surgical History History of colonoscopy with polypectomy History of total left knee replacement Hx laparoscopic cholecystectomy Hx of colonoscopy Hx of tubal ligation Social History adopted: Yes Smoking Status: Never smoker ROS ROS ED Constitutional Constitutional ED: Denies fever(s) Eyes Eyes: Denies change in vision ENT ENT ED: Denies rhinorrhea or sore throat Cardiovascular Cardiovascular: Denies chest pain or palpitations Respiratory/Chest Respiratory/Chest: Denies cough or dyspnea Gastrointestinal Gastrointestinal: Denies abdominal pain, diarrhea, nausea or vomiting Genitourinary Genitourinary ED: Denies dysuria Musculoskeletal Musculoskeletal: Denies myalgias Integumentary Denies rash Neurologic Neurologic: Denies headache(s) Psychiatric Psychiatric: Denies suicidal thoughts EXAM Physical Exam Const Vital Signs: 10/05/21 12:14 10/05/21 12:15 10/05/21 12:56 Temperature 96.4 F L 98.2 F Temperature Source Temporal Temporal Pulse Rate 106 H 78 Respiratory Rate 18 18 Respiratory Pattern Normal Blood Pressure 147/98 H 151/77 H Blood Pressure Mean 114 101 Pulse Ox 98 95 Oxygen Delivery Method Room Air Room Air Positive well nourished and well developed General Appearance ED: well developed HEENT Reports normocephalic and head/scalp atraumatic Eyes PERRL and EOMs intact bilaterally Neck supple General: Negative for tenderness Chest Wall inspection of chest normal Resp normal respiratory effort and clear to auscultation bilaterally Cardio regular rate and regular rhythm GI non-tender and non-distended Palpation: soft; Negative for guarding or rebound tenderness present no CVA tenderness Extremity normal to inspection Neuro oriented x3 Sensorium / Orientation: alert Psych mental status grossly normal MDM MDM MDM Narrative Medical decision making narrative: Patient is given IV fluids. CBC, chemistries are unremarkable. Glucose 261. EKG is sinus tachycardia rate of 105. Her heart rate is 90 on reevaluation. She remains asymptomatic. She will follow-up with Dr. Hall to reschedule her colonoscopy. She is advised to follow up with her primary care physician as needed. Advised return to ED for worsening complaints. Lab Data Attestation: I reviewed the patient's lab results. Labs: Laboratory Results - last 24 hr 10/05/21 10/05/21 12:10 12:10 WBC 5.3 RBC 3.98 L Hgb 11.6 L Hct 34.0 L MCV 85.4 MCH 29.1 MCHC 34.1 RDW Std Deviation 44.3 H RDW Coeff of [place] 14.2 Plt Count 216 MPV 10.1 Immature Gran % (Auto) 0.400 Neut % (Auto) 78.0 H Lymph % (Auto) 17.1 L [place] % (Auto) 3.9 Eos % (Auto) 0.4 Baso % (Auto) 0.2 Absolute Neuts (auto) 4.2 Absolute Lymphs (auto) 0.91 Nucleated RBC % 0 Sodium 138 Potassium 4.0 Chloride 101 Carbon Dioxide 28.0 Anion Gap 9 BUN 8 Creatinine 0.91 Estim Creat Clear Calc 48.27 Est GFR (MDRD) Af Amer 79 Est GFR (MDRD) Non-Af 65 BUN/Creatinine Ratio 8.8 L Glucose 261 H Calcium 8.7 EKG Initial EKG: Attestation: I personally reviewed and interpreted this EKG as follows: Interpretation: Sinus Tachycardia Discharge Plan Triage Chief Complaint: Palpitations ED Provider: Candie Russell Dx/Rx/DC Orders Clinical Impression: Acute hyperglycemia, Palpitations Instructions: High Blood Sugar (Hyperglycemia) Prescriptions: No Action metformin 500 MG tablet 500 mg PO BIDCM diphenoxylate-atropine [Lomotil] 1 EACH tablet 1 ea PO DAILY PRN (Reason: Diarrhea) tramadol [Ultram] 50 MG tablet 50 mg PO DAILY PRN (Reason: Pain) alprazolam [Xanax] 0.5 MG tablet 0.5 mg PO TID PRN (Reason: Anxiety) fluticasone propionate 1 SPRAY spray,suspension 2 spray NASAL DAILY meclizine 25 MG tablet,chewable 25 mg PO DAILY PRN (Reason: Vertigo) venlafaxine 150 MG tablet extended release 24hr 150 mg PO DAILY Lovastatin [Mevacor] 40 MG tablet 40 mg PO DAILY glimepiride 2 MG tablet 2 mg PO DAILY nortriptyline 10 MG capsule 10 mg PO DAILY pioglitazone 15 MG tablet 15 mg PO DAILY ondansetron 4 MG tablet 4 mg PO Q8H PRN PRN (Reason: Nausea) Qty: 10 0RF Primary Care Provider: Kanwal Guillermo Referrals: Kanwal Guillermo MD [Primary Care Provider] - Disposition Disposition: Home, Self Care
[2021-10-05] MEDS: 0.9% Normal Saline 1,000 ML 1000 ML IV (12:47)
[2021-10-05 12:50] LABS: Absolute Lymphocyte Count 0.91 X10^3/uL (0.83-4.51); Absolute Neutrophil Count 4.2 X10^3/uL (2.0-7.7); Basophil# 0.01 X10^3/uL; Basophil% 0.2 % (0-1); Eosinophil# 0.02 X10^3/uL; Eosinophils% 0.4 % (0-5); Hemoglobin 11.6 g/dL (12.0-15.0); Lymphocyte # 0.91 X10^3/ul (0.83-4.51); Lymphocyte % 17.1 % (19-41); Mean Corp Hgb Conc 34.1 g/dL (32-36); Mean Corpuscular Hgb 29.1 pg (27.0-32.0); Mean Corpuscular Volume 85.4 fL (81-99); Mean Platelet Vol. 10.1 fl (6.2-12.0); Monocyte# 0.21 X10^3/uL; Monocyte% 3.9 % (0-10); NRBC Flagged by Analyzer 0 % (0-5); Neutrophil # 4.16 X10^3/uL (2.7-7.7); Platelet Count 216 K/mm3 (150-450); RBC Distribution Width CV 14.2 % (11.6-14.6); RBC Distribution Width SD 44.3 fl (35.1-43.9); Red Blood Count 3.98 M/mm3 (4.2-5.4); White Blood Count 5.3 K/mm3 (4.4-11.0)
--- NOTE | 2021-10-05 12:55 | ED.RN ---
PT ASKS FOR CRACKERS AND A DRINK. DR KURTZ AWARE AND STATES IT IS FINE. PT GIVEN DIET SPRITE AND CRACKERS
[2021-10-05 13:07] LABS: Anion Gap 9 (5-15); BUN 8 mg/dL (7-18); BUN/Creat Ratio 8.8 RATIO (10-20); Calcium,Total 8.7 mg/dL (8.5-10.1); Chloride 101 mmol/L (98-107); Creatinine, Serum 0.91 mg/dL (0.55-1.02); EST Glomerular Filtration Rate 65 mL/min (>60); Est Glom Filt Rate - Afr Amer 79 mL/min (>60); Estimated Creatinine Clearance 48.27 ml/min; Glucose 261 mg/dL (74-106); Sodium Level 138 mmol/L (136-145)
== END 2021-10-05 14:31 | disposition home or self-care (01) ==
PROVIDERS: Emergency Provider Emergency Medicine; PCP Internal Medicine; Visit Provider Emergency Medicine
DX: E11.65 Type 2 diabetes mellitus with hyperglycemia (principal); R00.2 Palpitations; R00.0 Tachycardia, unspecified; E78.00 Pure hypercholesterolemia, unspecified; F41.9 Anxiety disorder, unspecified; Z78.0 Asymptomatic menopausal state; Z79.84 Long term (current) use of oral hypoglycemic drugs; Z79.899 Other long term (current) drug therapy; Z96.652 Presence of left artificial knee joint
CPT/HCPCS: 80048; 85025; 93005; J7030; A4216

== ENCOUNTER 2022-07-26 15:44 | Inpatient (IN) | payer MEDICARE, OTHER, SELFPAY ==
[2022-07-26 15:45] VITALS: BP 148/65; PULSE 109; RESP 18; TEMP 36.1; O2SAT 98; BMI 47.2
[2022-07-26 15:51] VITALS: TEMP 36.1; O2SAT 97
--- NOTE | 2022-07-26 16:23 | CT_ITS ---
STUDY: CT BRAIN WITHOUT CONTRAST REASON FOR EXAM: Female, 72 years old. head injury RADIATION DOSAGE (If Supplied By Facility): CTDIvol = ( 44.99 ) mGy, DLP = ( 846.73 ) mGycm TECHNIQUE: Transaxial CT imaging of the brain was performed without administration of intravenous contrast material. Individualized dose optimization techniques were used for this CT. COMPARISON: No relevant priors. FINDINGS: Normal soft tissue structures. Normal calvarium. Mild calcific plaquing of the cavernous carotids. Mild atrophy and periventricular white matter ischemic changes. Normal basal ganglia and thalami. Normal brainstem. Normal cerebellum. There is no intracranial hemorrhage. There are no findings of an acute ischemic infarction. Normal visualized paranasal sinuses. CT/Brain/Head without Contrast IMPRESSION: Mild atrophy and periventricular white matter ischemic change. No evidence for acute intracranial bleed. Electronically Signed: Martin Lira MD at 18:48 EDT ,
--- NOTE | 2022-07-26 16:23 | EKG12_ITS ---
Test Reason : FALL Blood Pressure : / mmHG Vent. Rate : 109 BPM Atrial Rate : 109 BPM P-R Int : 182 ms QRS Dur : 090 ms QT Int : 338 ms P-R-T Axes : 053 -34 052 degrees QTc Int : 455 ms Sinus tachycardia Left axis deviation Abnormal ECG Confirmed by TOM GOLDEN, CYRUS ([id number]), film editor supervisor GAVIOTA LAW ([id number]) on 07/27/2022 1:10:09 PM Referred By: Confirmed By:THEO SANTOS MD
--- NOTE | 2022-07-26 16:37 | CT_ITS ---
STUDY: CT CHEST, ABDOMEN T PELVIS WITH CONTRAST REASON FOR EXAM: Female, 72 years old. Fall RADIATION DOSAGE (If Supplied By Facility): CTDIvol = ( 23.49 ) mGy, DLP = ( 2916.80 ) mGycm TECHNIQUE: Transaxial imaging was performed following intravenous administration of IV 100mL Isovue-370. Individualized dose optimization techniques were used for this CT. COMPARISON: No relevant priors. FINDINGS: CHEST Elevated right hemidiaphragm and mild right basilar atelectasis. There is no demonstrated pleural abnormality. Normal heart and pericardium. Mild coronary artery calcification. Normal mediastinum. Normal hilar regions. Normal unenhanced pulmonary arteries. Minor atherosclerotic changes of the aorta without evidence for aneurysm. Dorsal spine demonstrates minor spondylosis. No evidence for acute fracture . ABDOMEN Normal liver. Gallbladder has been removed surgically. Normal spleen. Normal pancreas. Normal bilateral adrenal glands. Normal right kidney. Normal left kidney. Normal visualized stomach. Normal small intestine. Normal colon. No evidence for acute appendicitis. Minor atherosclerotic changes of the aorta without evidence for aneurysm. Normal inferior vena cava. Normal retroperitoneum. PELVIS Normal urinary bladder. Normal visualized small intestine. Normal visualized colon. There is no pelvic fluid. There is no pelvic lymphadenopathy or mass lesion. Normal visualized pelvic arteries. Normal abdominal wall. Lumbar spine demonstrates mild degenerative change. Mild chronic wedging of superior endplate of L3. Acute compression fracture of L1 with approximately 50% loss of vertebral body height but without retropulsion of bony fragments or involvement of the posterior arch. CT/CT Chest, Abd, Pel w/Contrast IMPRESSION: Elevated right hemidiaphragm and minor basilar atelectasis.. Status post cholecystectomy and appendectomy. Acute compression fracture of L1 without retropulsion of bony fragments. Old compression fracture of L3. Other findings as above Electronically Signed: Martin Lira MD at 19:02 EDT ,
--- NOTE | 2022-07-26 16:37 | CT_ITS ---
STUDY: CT CERVICAL SPINE WITHOUT CONTRAST REASON FOR EXAM: Female, 72 years old. Trauma RADIATION DOSAGE (If Supplied By Facility): CTDIvol = ( 29.58 ) mGy, DLP = ( 659.40 ) mGycm TECHNIQUE: High resolution transaxial imaging was performed without contrast material. Sagittal and coronal images were reconstructed. Individualized dose optimization techniques were used for this CT. COMPARISON: None FINDINGS: Normal craniovertebral junction. Normal anterior atlantoaxial articulation. Normal odontoid process. Straightening of normal lordotic curvature. Normal vertebral bodies and posterior osseous elements. C2-3: Normal endplates. Normal disc height and morphology. Normal central canal and intervertebral neuroforamina. C3-4: Narrowed disc space and minor endplate spurring. No focal disc protrusion. Normal central canal and intervertebral neuroforamina. C4-5: Normal endplates. Normal disc height and morphology. Normal central canal and intervertebral neuroforamina. C5-6: Narrowed disc space and mild endplate spurring. Morphology. Normal central canal. Severe left neuroforaminal stenosis secondary to bony hypertrophy. C6-7: Normal endplates. Normal disc height and morphology. Normal central canal. Moderate left neural foraminal stenosis secondary to bony hypertrophy. C7-T1: Normal endplates. Normal disc height and morphology. Normal central canal and intervertebral neuroforamina. Normal visualized soft tissue structures. CT/Spine Cervical without Contras IMPRESSION: No evidence for acute fracture or subluxation. Mild spondylosis most pronounced at C5-6 and C6-7 Electronically Signed: Martin Lira MD at 18:53 EDT ,
--- NOTE | 2022-07-26 16:37 | CT_ITS ---
STUDY: CT FACIAL BONES WITHOUT CONTRAST REASON FOR EXAM: Female, 72 years old. Facial trauma RADIATION DOSAGE (If Supplied By Facility): CTDIvol = ( 29.58 ) mGy, DLP = ( 606.22 ) mGycm TECHNIQUE: The patient was scanned in a multi detector CT scanner. Sagittal and coronal images were reconstructed. Individualized dose optimization techniques were used for this CT. COMPARISON: None. FINDINGS: Normal soft tissue structures. Normal orbital boggs and orbital contents. Normal nasal bones and anterior nasal spine. Normal facial bones. There is no demonstrated fracture. Normal visualized paranasal sinuses. CT/Sinus/Facial Bone IMPRESSION: Normal unenhanced CT of the facial bones. Electronically Signed: Martin Lira MD at 18:50 EDT ,
--- NOTE | 2022-07-26 16:39 | EX.ED.GENINJ ---
HPI History of Present Illness Chief Complaint: Fall Narrative Narrative: 72-year-old female presents for evaluation after a fall at home. This was unwitnessed. Patient states that she was feeling weak and fell on her way back from the bathroom. She states that she does not recall the fall. She woke up on her face. She has bruising to the lower lip. She was unable to get up off the floor. She has been laying on the floor for unknown known amount of time. She does complain of back pain and states that she recalls having spasms before waking up laying in the prone position. She states her back pain is slightly worse. No paresthesias. Denies headache or visual complaint. [facility] Medical History Anxiety Anxiety Arthritis Back pain Blackout Diabetes Diabetes mellitus DVT (deep venous thrombosis) High cholesterol History of colon polyps History of IBS History of stress test Hyperlipidemia Non-smoker Post-menopausal Wears glasses Home Medications Lovastatin [Mevacor] 40 mg PO QHS cholesterol 07/24/16 [History Last Taken 07/25/22] alprazolam 0.5 mg tablet (Xanax) 0.5 mg PO TID PRN Anxiety 07/24/16 [History Last Taken 08/30/18] diphenoxylate-atropine 2.5 mg-0.025 mg tablet (Lomotil) 1 ea PO DAILY PRN Diarrhea 07/24/16 [History Last Taken 07/25/22] fluticasone propionate 50 mcg/actuation nasal spray,suspension 2 spray DAILY allergies 07/24/16 [History Last Taken 07/25/22] glimepiride 2 mg tablet 2 mg PO DAILY diabetes 07/24/16 [History Last Taken 07/25/22] meclizine 25 mg chewable tablet 25 mg PO DAILY PRN Vertigo 07/24/16 [History Last Taken Unknown] metformin 500 mg tablet 500 mg PO BIDCM diabetes 07/24/16 [History Last Taken 07/25/22] nortriptyline 10 mg capsule 10 mg PO DAILY depression 07/24/16 [History Last Taken 07/25/22] ondansetron 4 mg disintegrating tablet 4 mg PO Q8H PRN PRN Nausea #10 tabs 05/10/20 [Rx Last Taken Unknown] pioglitazone 15 mg tablet 15 mg PO DAILY diabetes 05/10/20 [History Last Taken 07/25/22] Allergy/AdvReac Type Severity Reaction Status Date / Time acetaminophen [From Vicodin] Allergy Unknown Verified 07/26/22 15:50 doxycycline Allergy Diarrhea Verified 07/26/22 15:50 hydrocodone [From Vicodin] Allergy Unknown Verified 07/26/22 15:50 ibuprofen [From Motrin] Allergy Unknown Verified 07/26/22 15:50 lovastatin [From Advicor] Allergy Unknown Verified 07/26/22 15:50 niacin [From Advicor] Allergy Unknown Verified 07/26/22 15:50 Surgical History History of colonoscopy with polypectomy History of total left knee replacement Hx laparoscopic cholecystectomy Hx of colonoscopy Hx of tubal ligation Social History adopted: Yes Smoking Status: Never smoker ROS ROS ED Constitutional Constitutional ED: Denies chills or fever(s) Eyes Eyes: Denies change in vision ENT ENT ED: Denies rhinorrhea or sore throat Cardiovascular Cardiovascular: Denies chest pain or palpitations Respiratory/Chest Respiratory/Chest: Denies cough or dyspnea Gastrointestinal Gastrointestinal: Denies abdominal pain, nausea or vomiting Genitourinary Genitourinary ED: Denies dysuria Musculoskeletal Musculoskeletal: Reports back pain; Denies arthralgias Integumentary Reports rash; Denies abscess Neurologic Neurologic: Denies headache(s) or paresthesias Psychiatric Psychiatric: Denies anxiety or depression EXAM Physical Exam Const Vital Signs: 07/26/22 15:45 07/26/22 15:51 07/26/22 18:05 Temperature 96.9 F L 96.9 F L Temperature Source Temporal Pulse Rate 109 H 108 H Respiratory Rate 18 20 H Respiratory Effort Normal Non-Labored Respiratory Depth Normal Respiratory Pattern Normal Blood Pressure 148/65 H Blood Pressure Mean 92 Pulse Ox 98 97 Oxygen Delivery Method Room Air Room Air Room Air Positive well nourished, obese and unkempt General Appearance ED: unkempt Nutritional Appearance: obese HEENT HEENT Narrative: Edema and bruising to the lower lip. No jaw malocclusion. Eyes PERRL and EOMs intact bilaterally Neck full ROM Resp normal respiratory effort and clear to auscultation bilaterally Auscultation: Negative for rales or rhonchi Cardio regular rhythm Rate: tachycardic GI non-distended and no masses Back/Spine Back/Spine Narrative: Diffuse lumbar tenderness. No midline deformity or step-off Neuro oriented x3, CN's II-XII intact bilaterally, moves all extremities, no focal motor deficits and no sensory deficits noted Sensorium / Orientation: alert Psych Appearance: unkempt MDM MDM MDM Narrative Medical decision making narrative: 72-year-old female presenting with weakness. She is unable to ambulate. She was found down with unknown downtime. She apparently had an episode of syncope because she does not remember the event differential includes but is not limited to syncope, intracranial hemorrhage, concussion, spinal fracture, pneumonia, UTI, hyperglycemia, facial bone fracture, rhabdomyolysis. Patient does complain of lower back pain which is chronic however she has new back pain. CBC to assess white blood cell count, hemoglobin, platelets, differential. CMP to assess liver function, renal function, glucose, anion gap. High-sensitivity troponin, EKG, chest x-ray to assess cardiopulmonary. CPK to assess for rhabdomyolysis. Urinalysis to assess for UTI. Patient did fall and landed on her face. I will obtain a CT brain, facial bones, cervical spine. Since she is having increased diffuse back pain I will obtain a CT of the chest abdomen pelvis. Patient medicated with morphine, Zofran, 1 L normal saline. CBC shows a leukocytosis of 13.1. Hemoglobin hematocrit are stable. Platelets are normal. Renal function and electrolytes unremarkable. There is an isolated elevation of bilirubin at 1.3 which is of unknown significance CPK is mildly elevated at 293. EKG on my interpretation shows sinus tachycardia with a ventricular rate of 109 bpm without signs of ischemia or ectopy. High-sensitivity troponin 14. CT brain and cervical spine are both negative. CT of the facial bones was also negative. CT of the chest abdomen pelvis obtained do show a new L1 compression fracture without retropulsion. Patient no signs of cauda equina syndrome. She is unable to ambulate at this time secondary to weakness and pain. I suspect she will need to be admitted. I spoke with the hospitalist for admission. Impression: 1. Generalized weakness 2. L1 compression deformity 3. Inability to ambulate 4. Syncope 5. Facial contusions 6. Closed head injury Lab Data Attestation: I reviewed the patient's lab results. Labs: Laboratory Results - last 24 hr 07/26/22 07/26/22 07/26/22 15:48 16:34 17:25 WBC 13.1 H RBC 4.97 Hgb 13.8 Hct 41.4 MCV 83.3 MCH 27.8 MCHC 33.3 RDW Std Deviation 41.0 RDW Coeff of [place] 13.7 Plt Count 304 MPV 10.2 Immature Gran % (Auto) 0.400 Neut % (Auto) 85.0 H Lymph % (Auto) 9.[address] [place] % (Auto) 4.6 Eos % (Auto) 0.1 Baso % (Auto) 0.2 Absolute Neuts (auto) 11.2 H Absolute Lymphs (auto) 1.27 Nucleated RBC % 0 Sodium Potassium Chloride Carbon Dioxide Anion Gap BUN Creatinine Estim Creat Clear Calc Est GFR (MDRD) Af Amer Est GFR (MDRD) Non-Af BUN/Creatinine Ratio Glucose Calcium Total Bilirubin AST ALT Alkaline Phosphatase Total Creatine Kinase Troponin I High Sens Total Protein Albumin Globulin Albumin/Globulin Ratio Urine Color Yellow Urine Clarity Sl. Cloudy Urine pH 5.0 Ur Specific [place] 1.025 Urine Protein 30 H Urine Glucose (UA) 100 H Urine Ketones 150 A* Urine Occult Blood 10 H Urine Nitrite Negative Urine Bilirubin Negative Urine Urobilinogen 1 H Ur Leukocyte Esterase Negative Urine RBC 0-5 SEEN Urine WBC 0 SEEN Ur Squamous Epith Cells 0-5 SEEN Urine Bacteria 0 SEEN Urine Mucus 0 SEEN POC Glucose 183 H 07/26/22 17:25 WBC RBC Hgb Hct MCV MCH MCHC RDW Std Deviation RDW Coeff of [place] Plt Count MPV Immature Gran % (Auto) Neut % (Auto) Lymph % (Auto) [place] % (Auto) Eos % (Auto) Baso % (Auto) Absolute Neuts (auto) Absolute Lymphs (auto) Nucleated RBC % Sodium 136 Potassium 3.4 L Chloride 99 Carbon Dioxide 28.0 Anion Gap 9 BUN 19 H Creatinine 0.94 Estim Creat Clear Calc 46.07 Est GFR (MDRD) Af Amer 75 Est GFR (MDRD) Non-Af 62 BUN/Creatinine Ratio 20.1 H Glucose 172 H Calcium 9.6 Total Bilirubin 1.30 H AST 29 ALT 23 Alkaline Phosphatase 85 Total Creatine Kinase 293 H Troponin I High Sens 14 Total Protein 8.9 H Albumin 4.1 Globulin 4.8 H Albumin/Globulin Ratio 0.9 Urine Color Urine Clarity Urine pH Ur Specific [place] Urine Protein Urine Glucose (UA) Urine Ketones Urine Occult Blood Urine Nitrite Urine Bilirubin Urine Urobilinogen Ur Leukocyte Esterase Urine RBC Urine WBC Ur Squamous Epith Cells Urine Bacteria Urine Mucus POC Glucose Radiography Diagnostic Testing: Clinical Impression(s) from Imaging Studies Brain CT 07/26/22 16:23 IMPRESSION: Mild atrophy and periventricular white matter ischemic change. No evidence for acute intracranial bleed. Electronically Signed: Martin Lira MD at 18:48 EDT , Cervical Spine CT 07/26/22 16:37 IMPRESSION: No evidence for acute fracture or subluxation. Mild spondylosis most pronounced at C5-6 and C6-7 Electronically Signed: Martin Lira MD at 18:53 EDT Reading Location ID and State: [facility] / [place] , Service support , Chest/Abdomen/Pelvis CT 07/26/22 16:37 IMPRESSION: Elevated right hemidiaphragm and minor basilar atelectasis.. Status post cholecystectomy and appendectomy. Acute compression fracture of L1 without retropulsion of bony fragments. Old compression fracture of L3. Other findings as above Electronically Signed: Martin Lira MD at 19:02 EDT Reading Location ID and State: [facility] / [place] , Service support , Facial/Sinus 07/26/22 16:37 IMPRESSION: Normal unenhanced CT of the facial bones. Electronically Signed: Martin Lira MD at 18:50 EDT , Discharge Plan Disposition Disposition: Acute Care [facility] Discharge Date/Time: 07/26/22 20:56
[2022-07-26 16:50] LABS: Bedside Glucose 183 mg/dL (74-106)
[2022-07-26 17:00] LABS: Bacteria 0 SEEN /hpf (None Seen); Mucous, Urine 0 SEEN /hpf (<or=2+); White Blood Cells 0 SEEN /hpf (0-5)
--- NOTE | 2022-07-26 17:08 | ED.RN ---
THIS RN CALLED KATELYNN PARISH AT [id number] AT THE PT'S REQUEST TO UPDATE HER ON PT CARE.
[2022-07-26 17:17] LABS: Color, Urine Yellow (Yellow); Glucose, Dipstick 100 mg/dl (Normal); Leukocyte Esterase-Dipstick Negative /ul (Negative); Nitrite-Dipstick Negative (Negative); Occult Blood-Urine 10 /ul (Negative); Protein-Dipstick 30 mg/dl (Negative); Specific Gravity, Urine 1.025 (1.002-1.030); Urine Bilirubin Dipstick Negative (Negative); Urine Clarity Sl. Cloudy (Clear); Urine Urobilinogen 1 mg/dl (Normal)
[2022-07-26 17:27] LABS: Ketone-Dipstick 150 mg/dl (Negative)
[2022-07-26 17:32] LABS: Red Blood Cells-Urine 0-5 SEEN /hpf (0-5); Squamous Epithelial Cells - UA 0-5 SEEN /hpf (5-10)
[2022-07-26 17:34] LABS: Absolute Lymphocyte Count 1.27 X10^3/uL (0.83-4.51); Absolute Neutrophil Count 11.2 X10^3/uL (2.0-7.7); Basophil# 0.03 X10^3/uL; Basophil% 0.2 % (0-1); Eosinophil# 0.01 X10^3/uL; Eosinophils% 0.1 % (0-5); Hematocrit 41.4 % (37-47); Hemoglobin 13.8 g/dL (12.0-15.0); Lymphocyte # 1.27 X10^3/ul (0.83-4.51); Lymphocyte % 9.7 % (19-41); Mean Corp Hgb Conc 33.3 g/dL (32-36); Mean Corpuscular Hgb 27.8 pg (27.0-32.0); Mean Corpuscular Volume 83.3 fL (81-99); Mean Platelet Vol. 10.2 fl (6.2-12.0); Monocyte% 4.6 % (0-10); NRBC Flagged by Analyzer 0 % (0-5); Neutrophil # 11.16 X10^3/uL (2.7-7.7); Platelet Count 304 K/mm3 (150-450); RBC Distribution Width CV 13.7 % (11.6-14.6); Red Blood Count 4.97 M/mm3 (4.2-5.4); White Blood Count 13.1 K/mm3 (4.4-11.0)
[2022-07-26] MEDS: 0.9% Normal Saline 1,000 ML 1000 ML IV (17:53)
[2022-07-26 17:54] LABS: ALB/GLOB Ratio 0.9 RATIO (0.9-2.4); AST(SGOT) 29 U/L (15-37); Alanine Aminotransfer ALT/SGPT 23 U/L (13-56); Albumin, Serum 4.1 g/dL (3.2-5.0); Alkaline Phosphatase 85 U/L (45-117); Anion Gap 9 (5-15); BUN 19 mg/dL (7-18); BUN/Creat Ratio 20.1 RATIO (10-20); CPK Total, Creatine Kinase 293 U/L (26-192); Calcium,Total 9.6 mg/dL (8.5-10.1); Chloride 99 mmol/L (98-107); Creatinine, Serum 0.94 mg/dL (0.55-1.02); EST Glomerular Filtration Rate 62 mL/min (>60); Est Glom Filt Rate - Afr Amer 75 mL/min (>60); Estimated Creatinine Clearance 46.07 ml/min; Globulin 4.8 g/dL (2.2-4.2); Glucose 172 mg/dL (74-106); Potassium 3.4 mmol/L (3.5-5.1); Protein, Total 8.9 g/dL (6.4-8.2); Sodium Level 136 mmol/L (136-145); Troponin-I HS 14 pg/mL (3.0-54.0)
[2022-07-26] MEDS: Morphine 4 MG/ML Syringe IV (17:54)
[2022-07-26] MEDS: Ondansetron 4 MG/2 ML Vial IV (17:54)
[2022-07-26 18:05] VITALS: PULSE 108; RESP 20
--- NOTE | 2022-07-26 19:36 | PCM.HP.STD ---
HPI - General General Date of Admission: 07/26/22 Date of Service: 07/26/22 Chief Complaint: Fall with injury HPI Narrative VELMA AUGUSTINE, is a 72 F who presents to the emergency room after suffering a fall at home. She states she went to bed at a normal hour last night but woke up in pain with her face on the floor. She used the cell phone to call her son in [place] who then called the ambulance. CT scan of the abdomen reveals an acute compression fracture of L1 vertebra. The pain is 7/10 at rest while laying flat and is in her lower mid back with spasm however she does not describe radiculopathy. Laboratory studies are unremarkable. Patient denies any chest pain, shortness of breath, fever or chills at present time. After evaluation in the emergency room patient was unable to ambulate and therefore decision was made to admit patient for further management. She does states she had an ablation for supraventricular tachycardia approximately 2 weeks ago. [facility] Medical History (Updated 07/26/22 @ 19:[address] Jose Cartagena MD) Anxiety Anxiety Arthritis Back pain Blackout Diabetes Diabetes mellitus DVT (deep venous thrombosis) High cholesterol History of colon polyps History of IBS History of stress test Hyperlipidemia Non-smoker Post-menopausal Wears glasses Home Medications Lovastatin [Mevacor] 40 mg PO DAILY 07/24/16 [History Last Taken Unknown] alprazolam 0.5 mg tablet (Xanax) 0.5 mg PO TID PRN Anxiety 07/24/16 [History Last Taken 08/30/18] diphenoxylate-atropine 2.5 mg-0.025 mg tablet (Lomotil) 1 ea PO DAILY PRN Diarrhea 07/24/16 [History Last Taken Unknown] fluticasone propionate 50 mcg/actuation nasal spray,suspension 2 spray DAILY 07/24/16 [History Last Taken Unknown] glimepiride 2 mg tablet 2 mg PO DAILY 07/24/16 [History Last Taken Unknown] meclizine 25 mg chewable tablet 25 mg PO DAILY PRN Vertigo 07/24/16 [History Last Taken Unknown] metformin 500 mg tablet 500 mg PO BIDCM 07/24/16 [History Last Taken Unknown] nortriptyline 10 mg capsule 10 mg PO DAILY 07/24/16 [History Last Taken Unknown] ondansetron 4 mg disintegrating tablet 4 mg PO Q8H PRN PRN Nausea #10 tabs 05/10/20 [Rx Last Taken Unknown] pioglitazone 15 mg tablet 15 mg PO DAILY 05/10/20 [History Last Taken Unknown] Allergy/AdvReac Type Severity Reaction Status Date / Time acetaminophen [From Vicodin] Allergy Unknown Verified 07/26/22 15:50 doxycycline Allergy Diarrhea Verified 07/26/22 15:50 hydrocodone [From Vicodin] Allergy Unknown Verified 07/26/22 15:50 ibuprofen [From Motrin] Allergy Unknown Verified 07/26/22 15:50 lovastatin [From Advicor] Allergy Unknown Verified 07/26/22 15:50 niacin [From Advicor] Allergy Unknown Verified 07/26/22 15:50 Surgical History History of colonoscopy with polypectomy History of total left knee replacement Hx laparoscopic cholecystectomy Hx of colonoscopy Hx of tubal ligation Social History adopted: Yes Smoking Status: Never smoker ROS Constitutional Constitutional: Denies change in weight, chills or fever(s) Eyes Eyes: Denies blurry vision ENT HEENT: Denies abnormal hearing Cardiovascular Cardiovascular: Denies chest pain Respiratory/Chest Respiratory/Chest: Denies cough Gastrointestinal Gastrointestinal: Denies abdominal pain Genitourinary Genitourinary: Denies dysuria Musculoskeletal Musculoskeletal: Reports back pain Integumentary Integumentary: Denies dry skin Neurologic Neurologic: Reports abnormal gait, confusion and lack of coordination Psychiatric Psychiatric: Reports anxiety; Denies depression Vital Signs Vital Signs Vital Signs: 07/26/22 15:45 07/26/22 15:51 07/26/22 18:05 Temperature 96.9 F L 96.9 F L Temperature Source Temporal Pulse Rate 109 H 108 H Respiratory Rate 18 20 H Respiratory Effort Normal Non-Labored Respiratory Depth Normal Respiratory Pattern Normal Blood Pressure 148/65 H Blood Pressure Mean 92 Pulse Ox 98 97 Oxygen Delivery Method Room Air Room Air Room Air Weight Weight: 266 lb 8.622 oz Body Mass Index (BMI) 47.2 Physical Exam Const alert and well nourished General Appearance: cooperative HEENT normocephalic HEENT Narrative: Contusion and swelling of lower lip Eyes PERRL Neck no lymphadenopathy General: trachea midline Lymph Lymphatic: no lymphadenopathy noted Resp normal respiratory effort, normal air movement and clear to auscultation bilaterally Cardio regular rate, regular rhythm, S1 normal heart sound and S2 normal heart sound GI normal to inspection, nondistended, normoactive bowel sounds and soft to palpation Extremity normal capillary refill Skin General Skin Exam: no breakdown Neuro no focal motor deficits and no sensory deficits noted Speech: speech normal Psych cooperative and affect normal Mood & Affect: anxious Results Lab / Micro Data Result Diagrams: 07/26/22 17:25 07/26/22 17:25 Labs: Laboratory Results - last 24 hr 07/26/22 15:48: POC Glucose 183 H 07/26/22 16:34: Urine Color Yellow, Urine Clarity Sl. Cloudy, Urine pH 5.0, Ur Specific [place] 1.025, Urine Protein 30 H, Urine Glucose (UA) 100 H, Urine Ketones 150 A*, Urine Occult Blood 10 H, Urine Nitrite Negative, Urine Bilirubin Negative, Urine Urobilinogen 1 H, Ur Leukocyte Esterase Negative, Urine RBC 0-5 SEEN, Urine WBC 0 SEEN, Ur Squamous Epith Cells 0-5 SEEN, Urine Bacteria 0 SEEN, Urine Mucus 0 SEEN 07/26/22 17:25: WBC 13.1 H, RBC 4.97, Hgb 13.8, Hct 41.4, MCV 83.3, MCH 27.8, MCHC 33.3, RDW Std Deviation 41.0, RDW Coeff of [place] 13.7, Plt Count 304, MPV 10.2, Immature Gran % (Auto) 0.400, Neut % (Auto) 85.0 H, Lymph % (Auto) 9.7 L, [place] % (Auto) 4.6, Eos % (Auto) 0.1, Baso % (Auto) 0.2, Absolute Neuts (auto) 11.2 H, Absolute Lymphs (auto) 1.27, Nucleated RBC % 0 07/26/22 17:25: Sodium 136, Potassium 3.4 L, Chloride 99, Carbon Dioxide 28.0, Anion Gap 9, BUN 19 H, Creatinine 0.94, Estim Creat Clear Calc 46.07, Est GFR (MDRD) Af Amer 75, Est GFR (MDRD) Non-Af 62, BUN/Creatinine Ratio 20.1 H, Glucose 172 H, Calcium 9.6, Total Bilirubin 1.30 H, AST 29, ALT 23, Alkaline Phosphatase 85, Total Creatine Kinase 293 H, Troponin I High Sens 14, Total Protein 8.9 H, Albumin 4.1, Globulin 4.8 H, Albumin/Globulin Ratio 0.[address] 07/26/22 16:23 IMPRESSION: Mild atrophy and periventricular white matter ischemic change. No evidence for acute intracranial bleed. Electronically Signed: Martin Lira MD at 18:48 EDT , Cervical Spine CT 07/26/22 16:37 IMPRESSION: No evidence for acute fracture or subluxation. Mild spondylosis most pronounced at C5-6 and C6-7 Electronically Signed: Martin Lira MD at 18:53 EDT , Chest/Abdomen/Pelvis CT 07/26/22 16:37 IMPRESSION: Elevated right hemidiaphragm and minor basilar atelectasis.. Status post cholecystectomy and appendectomy. Acute compression fracture of L1 without retropulsion of bony fragments. Old compression fracture of L3. Other findings as above Electronically Signed: Martin Lira MD at 19:02 EDT , Facial/Sinus 07/26/22 16:37 IMPRESSION: Normal unenhanced CT of the facial bones. Electronically Signed: Martin Lira MD at 18:50 EDT , Assessment & Plan Assessment/Plan (1) Irritable colon: (2) Diabetes mellitus: (3) Anxiety: (4) Acute back pain: PLAN: Plan 1. Acute back pain secondary to compression fracture of L1.?Admit patient to general medical floor with bed rest, consult Dr. Jones in the a.m. to consider patient for kyphoplasty. We will give Dilaudid 1 mg IV every 3 hours as needed. Will give cyclobenzaprine 5 mg p.o. 3 times daily as needed muscle spasm. 2. Diabetes?continue home diabetic medications 3. Anxiety?continue anxiolytics patient is stable at this time 4. DVT prophylaxis?low molecular weight heparin. Patient denies being on anticoagulation following her ablation procedure. Charges/Coding Visit Charges Inpatient E&M: 42213 Init Hosp L2
--- NOTE | 2022-07-26 19:57 | MRI_ITS ---
HISTORY: L1 compression fracture, hx falls, back spasm, weakness, unable to ambulate TECHNIQUE: Multiplanar and multisequence MR images of the lumbar spine were obtained without intravenous contrast. 140 images. COMPARISON: CT prior day. FINDINGS: VERTEBRAE: 50% loss of height of the L1 vertebral body with bone marrow edema and linear hypointense fracture line. Minimal retropulsion into the spinal canal. Approximately 30% loss of height at the superior endplate of L3 without significant bone marrow edema. ALIGNMENT: No anterior or posterior subluxation. SPINAL CANAL: Normal morphology and position of the conus medullaris at T12-L1. No gross epidural collection or ligamentous disruption. INTERVERTEBRAL DISCS: T12-L1: No significant posterior disc protrusion or foraminal narrowing. Mild central canal stenosis secondary to the L1 compression fracture. L1-2: Minimal disc bulge and facet arthropathy without significant central canal stenosis or foraminal narrowing. L2-3: Mild disc bulge with facet arthropathy resulting in mild central canal stenosis and bilateral foraminal narrowing. L3-4: Mild disc bulge with facet arthropathy resulting in minimal narrowing of thecal sac and mild bilateral foraminal narrowing. L4-5: Very mild posterior disc bulge osteophyte complex with facet arthropathy resulting in mild bilateral foraminal narrowing. No significant central canal stenosis. L5-S1: Mild posterior disc extrusion with facet arthropathy resulting in mild left foraminal narrowing. No significant central canal stenosis. SOFT TISSUES: Posterior subcutaneous edema. MRI/Spine Lumbar (Routine) IMPRESSION: Moderate acute L1 compression fracture as described above. Mild chronic L3 compression fracture. Mild multilevel degenerative disc disease with mild spinal canal stenosis and foraminal narrowing at L2-3. Electronically Signed: Libby Celis MD at 14:09 EDT ,
[2022-07-26 20:06] VITALS: BP 145/84; PULSE 121; RESP 28
[2022-07-26 20:50] VITALS: BP 138/110; PULSE 123; RESP 20; TEMP 36.5; O2SAT 94
--- NOTE | 2022-07-26 21:11 | CM.ED ---
Social Work Note JUAN ANTONIO Face to Face with patient and patient's daughter for initial transition planning/care coordination assessment. SW introduced self and role at [facility]. Patient lying in bed, alert and oriented. Patient willing to participate in assessment with patient's daughter's assistance and is able to answer all questions appropriately.? Care providers, pharmacy, and demographics verified. Patient wishes to discharge to SNF.?Patient's daughter reports patient has fallen 5 times in the past 4 1/2 months. Patient was supposed to start physial therapy today with [facility] but was unable to go due to fall last night. Patient has been engaged with services at [facility] for services related to vertigo. SW to continue to follow along for discharge planning needs. PCP: [facility] Specialists: Training Personnel Supervisor Dr. Dubose also sees someone for diabetes, unable to recall name Preferred Pharmacy: [facility] Insurance: Medicare A&B, [place] Prescription Benefit:?yes Living Will/HPOA: Patient reports having living will and her HCPOA is her daughterMarycruz and secondary is her sonSha LNOK:Daughter, Marycruz and son, Sha Living Arrangements: Patient lives alone in ranch style home with laundry located in basement and steps into the house with raling. Patient reports she does not cook but ever has. Patient has been taking sink baths as she is concerned with the step to get into her shower. Patient reports she doesn't clean because no one comes to her home. Transportation: Patient still driving independently, no concerns. DME/HHC: Patient has cane and walker at home but not actively using them. No HHC hx. Patient went to TCU roughly 10 years ago after knee surgery. Patient reports she would be willing to go to TCU again as she feels she needs therapy and states her goal is to be able to walk again. Patient's daughter states she wants the patient to be safe at home and not fall. A list of?SNF?providers including quality and resource use data and consistent with patient?s preferred geographic region, medical needs, and insurance network were provided from the [facility] Guide.?Patient reports [facility] choice and [facility] her second choice, however, she wanted to further review the SNF list with her daughter. SW provided patient with information regarding [facility]. Patient and patient's daughter were receptive towards resources. SW explained the unit home health care social worker will continue to assist with discharge needs. Patient requesting her daughter, Marycruz, be apart of the discharge plan conversation. Disposition Plan: SNF [facility] SH[facility]ZZ, TEA
[2022-07-26 21:15] VITALS: BMI 36.3
[2022-07-26 21:28] VITALS: BP 151/75; PULSE 120; RESP 18; TEMP 37.5; O2SAT 94
[2022-07-26] MEDS: Atorvastatin Calcium 10 MG Tablet PO (21:58)
[2022-07-26] MEDS: cycloBENZAPRine HCl 5 MG TABLET PO (21:58)
[2022-07-26] MEDS: 0.9% Saline Lock 10 ML Syringe IV (23:48)
[2022-07-27 03:11] VITALS: BP 102/86; PULSE 106; RESP 20; TEMP 36.6; O2SAT 92
[2022-07-27 07:05] LABS: Absolute Lymphocyte Count 1.24 X10^3/uL (0.83-4.51); Absolute Neutrophil Count 6.5 X10^3/uL (2.0-7.7); Basophil# 0.02 X10^3/uL; Basophil% 0.2 % (0-1); Eosinophil# 0.03 X10^3/uL; Eosinophils% 0.4 % (0-5); Hematocrit 33.4 % (37-47); Hemoglobin 11.2 g/dL (12.0-15.0); Lymphocyte # 1.24 X10^3/ul (0.83-4.51); Mean Corp Hgb Conc 33.5 g/dL (32-36); Mean Corpuscular Hgb 28.9 pg (27.0-32.0); Mean Corpuscular Volume 86.3 fL (81-99); Mean Platelet Vol. 10.3 fl (6.2-12.0); Monocyte# 0.51 X10^3/uL; Monocyte% 6.2 % (0-10); NRBC Flagged by Analyzer 0 % (0-5); Neutrophil # 6.45 X10^3/uL (2.7-7.7); Neutrophil % 77.8 % (47-70); Platelet Count 192 K/mm3 (150-450); RBC Distribution Width CV 14.1 % (11.6-14.6); RBC Distribution Width SD 43.5 fl (35.1-43.9); Red Blood Count 3.87 M/mm3 (4.2-5.4); White Blood Count 8.3 K/mm3 (4.4-11.0)
[2022-07-27 07:18] LABS: International Normalized Ratio 1.2; Prothrombin Time (Protime)PT. 15.3 SECONDS (11.7-14.9)
[2022-07-27] MEDS: 0.9% Saline Lock 10 ML Syringe IV ×2 (07:25→11:59)
[2022-07-27] MEDS: HYDROmorphone 1 MG/ML Syringe IV ×2 (07:25→11:52)
[2022-07-27 07:27] LABS: Anion Gap 8 (5-15); BUN 17 mg/dL (7-18); BUN/Creat Ratio 20.4 RATIO (10-20); Calcium,Total 8.6 mg/dL (8.5-10.1); Chloride 104 mmol/L (98-107); Creatinine, Serum 0.83 mg/dL (0.55-1.02); EST Glomerular Filtration Rate 72 mL/min (>60); Est Glom Filt Rate - Afr Amer 87 mL/min (>60); Estimated Creatinine Clearance 63.62 ml/min; Glucose 176 mg/dL (74-106); Potassium 3.4 mmol/L (3.5-5.1); Sodium Level 137 mmol/L (136-145)
[2022-07-27] MEDS: cycloBENZAPRine HCl 5 MG TABLET PO ×3 (07:31→20:03)
[2022-07-27] MEDS: metFORMIN HCl 500 MG Tablet PO (08:03)
[2022-07-27] MEDS: Glimepiride 2 MG Tablet PO (08:03)
[2022-07-27] MEDS: Pioglitazone Hydrochloride 15 MG Tablet PO (08:05)
[2022-07-27] MEDS: Menthol/Lanolin/Calamine/Znox 113 GM Tube 1 APPLIC TOPICAL ×2 (08:07→21:21)
[2022-07-27] MEDS: Nystatin Powder 15gm Bottle 1 APPLIC TOPICAL ×2 (08:07→21:21)
[2022-07-27 08:12] VITALS: BP 134/66; PULSE 104; RESP 18; TEMP 36.6; O2SAT 94
[2022-07-27 08:15] LABS: Hemoglobin A1c 6.1 % (3.8-5.6)
--- NOTE | 2022-07-27 10:02 | PN.HOSP_ITS ---
Reason for Visit Reason for Visit: Diagnoses Type 2 diabetes mellitus without complications (07/26/22) Anxiety disorder, unspecified (07/26/22) Irritable bowel syndrome without diarrhea (07/26/22) Dorsalgia, unspecified (07/26/22) Subjective Subjective Reports she is having muscle spasms when she is sitting up in chair and is now lying back in bed. About to go down for MRI Objective Data Objective Data Vital Signs: Vital Signs Temp Pulse Resp BP Pulse Ox O2 Del Method 97.8 F 104 H 18 134/66 H 94 Room Air 07/27/22 08:12 07/27/22 08:12 07/27/22 08:12 07/27/22 08:12 07/27/22 08:12 07/27/22 08:18 Oxygen Delivery Method Room Air Weight: 110 kg Body Mass Index (BMI) 36.3 Intake & Output: Intake and Output for Last 24 Hours 07/25/22 07/26/22 07/27/22 23:59 23:59 23:59 Intake Total 1000 / 1000 Output Total 225 / 225 Balance 1000 / 1000 -225 / -225 Lab / Micro Data Result Diagrams: 07/27/22 06:53 07/27/22 06:53 Labs: Laboratory Results - last 24 hr 07/26/22 15:48: POC Glucose 183 H 07/26/22 16:34: Urine Color Yellow, Urine Clarity Sl. Cloudy, Urine pH 5.0, Ur Specific [place] 1.025, Urine Protein 30 H, Urine Glucose (UA) 100 H, Urine Ketones 150 A*, Urine Occult Blood 10 H, Urine Nitrite Negative, Urine Bilirubin Negative, Urine Urobilinogen 1 H, Ur Leukocyte Esterase Negative, Urine RBC 0-5 SEEN, Urine WBC 0 SEEN, Ur Squamous Epith Cells 0-5 SEEN, Urine Bacteria 0 SEEN, Urine Mucus 0 SEEN 07/26/22 17:25: WBC 13.1 H, RBC 4.97, Hgb 13.8, Hct 41.4, MCV 83.3, MCH 27.8, MCHC 33.3, RDW Std Deviation 41.0, RDW Coeff of [place] 13.7, Plt Count 304, MPV 10.2, Immature Gran % (Auto) 0.400, Neut % (Auto) 85.0 H, Lymph % (Auto) 9.7 L, [place] % (Auto) 4.6, Eos % (Auto) 0.1, Baso % (Auto) 0.2, Absolute Neuts (auto) 11.2 H, Absolute Lymphs (auto) 1.27, Nucleated RBC % 0 07/26/22 17:25: Sodium 136, Potassium 3.4 L, Chloride 99, Carbon Dioxide 28.0, Anion Gap 9, BUN 19 H, Creatinine 0.94, Estim Creat Clear Calc 46.07, Est GFR (MDRD) Af Amer 75, Est GFR (MDRD) Non-Af 62, BUN/Creatinine Ratio 20.1 H, Glucose 172 H, Calcium 9.6, Total Bilirubin 1.30 H, AST 29, ALT 23, Alkaline Phosphatase 85, Total Creatine Kinase 293 H, Troponin I High Sens 14, Total Protein 8.9 H, Albumin 4.1, Globulin 4.8 H, Albumin/Globulin Ratio 0.9 07/27/22 06:53: WBC 8.3, RBC 3.87 L, Hgb 11.2 L, Hct 33.4 L, MCV 86.3, MCH 28.9, MCHC 33.5, RDW Std Deviation 43.5, RDW Coeff of [place] 14.1, Plt Count 192, MPV 10.3, Immature Gran % (Auto) 0.400, Neut % (Auto) 77.8 H, Lymph % (Auto) 15.0 L, [place] % (Auto) 6.2, Eos % (Auto) 0.4, Baso % (Auto) 0.2, Absolute Neuts (auto) 6.5, Absolute Lymphs (auto) 1.24, Nucleated RBC % 0 07/27/22 06:53: PT 15.3 H, INR 1.2 07/27/22 06:53: Sodium 137, Potassium 3.4 L, Chloride 104, Carbon Dioxide 25.0, Anion Gap 8, BUN 17, Creatinine 0.83, Estim Creat Clear Calc 63.62, Est GFR (MDRD) Af Amer 87, Est GFR (MDRD) Non-Af 72, BUN/Creatinine Ratio 20.4 H, Glucose 176 H, Calcium 8.6 07/27/22 06:53: Hemoglobin A1c 6.1 H Radiography Diagnostic Testing: Radiology Impression Brain CT 07/26/22 16:23 IMPRESSION: Mild atrophy and periventricular white matter ischemic change. No evidence for acute intracranial bleed. Electronically Signed: Martin Lira MD at 18:48 EDT , Cervical Spine CT 07/26/22 16:37 IMPRESSION: No evidence for acute fracture or subluxation. Mild spondylosis most pronounced at C5-6 and C6-7 Electronically Signed: Martin Lira MD at 18:53 EDT , Chest/Abdomen/Pelvis CT 07/26/22 16:37 IMPRESSION: Elevated right hemidiaphragm and minor basilar atelectasis.. Status post cholecystectomy and appendectomy. Acute compression fracture of L1 without retropulsion of bony fragments. Old compression fracture of L3. Other findings as above Electronically Signed: Martin Lira MD at 19:02 EDT , Facial/Sinus 07/26/22 16:37 IMPRESSION: Normal unenhanced CT of the facial bones. Electronically Signed: Martin Lira MD at 18:50 EDT , Physical Exam Narrative General: Alert, oriented, no apparent distress HEENT: Bottom lip appears to have some ecchymosis, normocephalic Eyes: Anicteric, normal conjunctiva, extraocular movements grossly intact Neck: Supple Respiratory: Clear to auscultation bilaterally, normal respiratory effort Cardiovascular: Regular rate and rhythm GI: Soft, nontender, nondistended Extremities: No edema Musculoskeletal: Moving all extremities Neuro: No overt focal neurological deficits Skin: No rashes appreciated Psych: Cooperative Assessment & Plan Assessment/Plan (1) Irritable colon: (2) Diabetes mellitus: (3) Anxiety: (4) Acute back pain: PLAN: Plan #Acute compression fracture of L1 vertebra after a fall -CT scan of abdomen after fall showed acute compression fracture in L1 vertebra, she had pain at rest lying flat with spasm but had not noted radiculopathy -MRI ordered -Pain control -Dr. Jones with pain management consulted #Recent fall -Unclear etiology -Does take Xanax 0.5 mg 3 times daily as needed but appears this has been chronic -Was recently prescribed meclizine and Phenergan but this was 2 weeks ago and unlikely to suddenly cause this -Cannot rule out hypoglycemia as a culprit however was not hypoglycemic on arrival but does take pioglitazone and Ozempic as well as metformin at home -We will need PT/OT #SVT status post ablation -Ablation 2 weeks ago per chart #Type 2 diabetes mellitus -Home medications listed as pioglitazone, metformin, glimepiride continued by admitting physician -Blood glucose checks and sliding scale insulin #DVT ppx: Lovenox subq Frida Patel MD Time spent in the patient's overall evaluation,decision-making process, review of diagnostic data, adjustment of management, discussion with other providers, nursing nursing and ancillary staff involved in patient's care documentation, 30 minutes Charges/Coding Visit Charges Inpatient E&M: 62220 Subs Hosp L2
--- NOTE | 2022-07-27 11:09 | CASEMGMT ---
Addendum entered by Jennifer Arauz 07/27/22 13:07: JUAN ANTONIO met with pt to get second choice for SNF. Pt reports second choice as [facility]. JUAN ANTONIO discussed with [facility] and [facility] can accept pt on 07/29 pending pharmacy approval. JUAN ANTONIO conferred with MD Patel to confirm it is appropriate for pt to remain on acute floor waiting for bed at [facility] on [facility]. MD Patel stated pt having MRI today and intervention tomorrow for whatever MRI finds so 07/29 would likely be discharge date anyway. Pt off the floor for MRI at this time and SW cannot update on acceptance. Will see pt when pt returns. Original Note: Social Work? SW in to meet with pt following update from and review of therapy notes that pt will need placement at nursing facility. SW introduced self and role at the hospital. Pt agreeable to discussing discharge planning. A list of SNF providers including quality and resource use data consistent with the patient?s preferred geographic region, medical needs, and insurance network were provided from the [facility] Guide. Pt reviewed list and shared preference is TCU. JUAN ANTONIO explained TCU has been limited on beds and pt will need to chose another option as a backup choice. Pt asked for some time to make this decision and asked SW to come back in 45 minutes before pt leaves for MRI. SW agreeable. Will revist pt later this day. JUAN ANTONIO sent referral to [facility]. [facility] to review when time allows and determine if pt can be accepted. PLAN: SNF? [facility] Sosa?
--- NOTE | 2022-07-27 12:16 | CHAPLAIN ---
Type of Pastoral Visit _x__ Initial Visit ___ Follow-up Visit ___ On-call Visit ___ General Patient Visit ___ Spiritual Assessment ___ Family Conference ___ Bereavement ___ Rapid Response ___ Code Blue ___ Other (describe below) Pastoral Care Referral From _x__ Patient ___ Family ___ Nurse ___ Physician ___ Mold Repairer ___ Advance Scout ___ Other (describe below) Sacrament/Intervention _x__ Active listening ___ Anointing ___ Synagogue ___ Bereavement ___ Communion _x__ Maria D exploration ___ ___ Life review _x__ Prayer ___ Reconciliation ___ Sacrament of Sick _x__ Supportive presence ___ Wedding ___ Other (describe below) Pastoral Comments patient explains her situation and asks for a prayer; pt is to go to MRI soon; pt reports on maria d that God is with her and that He was there while on the floor waiting for help; pt speaks of her family and baptist; support offered as desired in the future
[2022-07-27] MEDS: Nortriptyline 10 MG Capsule PO (13:25)
[2022-07-27] MEDS: Insulin Lispro 100 UNIT/ML INSULN.PEN SC ×2 (13:47→21:20)
[2022-07-27] MEDS: Potassium Chloride Oral Tablet 20 MEQ 40 MEQ PO (14:04)
[2022-07-27 14:07] VITALS: BP 136/72; PULSE 108; RESP 18; TEMP 37.2; O2SAT 92
[2022-07-27 14:31] LABS: Bedside Glucose 184 mg/dL (74-106)
[2022-07-27 15:10] VITALS: O2SAT 81; O2SAT 91
--- NOTE | 2022-07-27 16:13 | CPS ---
Patient placed on 2L Oxygen while sleeping
[2022-07-27 17:35] LABS: Bedside Glucose 130 mg/dL (74-106)
[2022-07-27 20:00] VITALS: BP 144/57; PULSE 109; RESP 16; TEMP 36.9; O2SAT 95
[2022-07-27] MEDS: Atorvastatin Calcium 10 MG Tablet PO (21:20)
[2022-07-27 21:45] LABS: Bedside Glucose 208 mg/dL (74-106)
[2022-07-28] VITALS (14 sets, daily range): BP systolic 125–194; BP diastolic 66–105; PULSE 103–121; RESP 14–18; TEMP 36.3–36.9; O2SAT 85–98; BMI 36.3
[2022-07-28 06:26] LABS: Absolute Lymphocyte Count 0.91 X10^3/uL (0.83-4.51); Absolute Neutrophil Count 4.5 X10^3/uL (2.0-7.7); Basophil# 0.02 X10^3/uL; Basophil% 0.3 % (0-1); Eosinophil# 0.11 X10^3/uL; Eosinophils% 1.8 % (0-5); Hematocrit 34.7 % (37-47); Hemoglobin 11.6 g/dL (12.0-15.0); Lymphocyte # 0.91 X10^3/ul (0.83-4.51); Lymphocyte % 15.1 % (19-41); Mean Corp Hgb Conc 33.4 g/dL (32-36); Mean Corpuscular Hgb 28.8 pg (27.0-32.0); Mean Corpuscular Volume 86.1 fL (81-99); Mean Platelet Vol. 10.5 fl (6.2-12.0); Monocyte# 0.48 X10^3/uL; NRBC Flagged by Analyzer 0 % (0-5); Neutrophil # 4.47 X10^3/uL (2.7-7.7); Neutrophil % 74.5 % (47-70); Platelet Count 194 K/mm3 (150-450); RBC Distribution Width CV 14.1 % (11.6-14.6); RBC Distribution Width SD 43.7 fl (35.1-43.9); Red Blood Count 4.03 M/mm3 (4.2-5.4)
[2022-07-28 06:50] LABS: Bedside Glucose 184 mg/dL (74-106)
[2022-07-28 06:55] LABS: Anion Gap 6 (5-15); BUN 16 mg/dL (7-18); BUN/Creat Ratio 21.2 RATIO (10-20); Calcium,Total 8.7 mg/dL (8.5-10.1); Chloride 106 mmol/L (98-107); Creatinine, Serum 0.76 mg/dL (0.55-1.02); EST Glomerular Filtration Rate 81 mL/min (>60); Est Glom Filt Rate - Afr Amer 98 mL/min (>60); Estimated Creatinine Clearance 52.81 ml/min; Glucose 181 mg/dL (74-106); Potassium 3.6 mmol/L (3.5-5.1); Sodium Level 138 mmol/L (136-145)
--- NOTE | 2022-07-28 09:17 | PCM.PN.HOSP ---
Reason for Visit Reason for Visit: Diagnoses Type 2 diabetes mellitus without complications (07/26/22) Anxiety disorder, unspecified (07/26/22) Irritable bowel syndrome without diarrhea (07/26/22) Dorsalgia, unspecified (07/26/22) Subjective Subjective Still has a lot of pain, going for procedure today with Dr. Jones Objective Data Objective Data Vital Signs: Vital Signs Temp Pulse Resp BP Pulse Ox O2 Del Method O2 Flow Rate 98 F 103 H 16 145/90 H 94 Room Air 2 07/28/22 02:28 07/28/22 02:28 07/28/22 02:28 07/28/22 02:28 07/28/22 07:43 07/28/22 07:43 07/27/22 15:10 Oxygen Flow Rate (L/min) 2 Oxygen Delivery Method Room Air Weight: 110 kg Body Mass Index (BMI) 36.3 Intake & Output: Intake and Output for Last 24 Hours 07/26/22 07/27/22 07/28/22 23:59 23:59 23:59 Intake Total 1000 / 1000 450 / 450 Output Total 575 / 975 800 / 800 Balance 1000 / 1000 -125 / -525 -800 / -800 Lab / Micro Data Result Diagrams: 07/28/22 06:15 07/28/22 06:15 Labs: Laboratory Results - last 24 hr 07/27/22 13:29: POC Glucose 184 H 07/27/22 16:53: POC Glucose 130 H 07/27/22 21:18: POC Glucose 208 H 07/28/22 06:15: WBC 6.0, RBC 4.03 L, Hgb 11.6 L, Hct 34.7 L, MCV 86.1, MCH 28.8, MCHC 33.4, RDW Std Deviation 43.7, RDW Coeff of [place] 14.1, Plt Count 194, MPV 10.5, Immature Gran % (Auto) 0.300, Neut % (Auto) 74.5 H, Lymph % (Auto) 15.1 L, [place] % (Auto) 8.0, Eos % (Auto) 1.8, Baso % (Auto) 0.3, Absolute Neuts (auto) 4.5, Absolute Lymphs (auto) 0.91, Nucleated RBC % 0 07/28/22 06:15: Sodium 138, Potassium 3.6, Chloride 106, Carbon Dioxide 26.0, Anion Gap 6, BUN 16, Creatinine 0.76, Estim Creat Clear Calc 52.81, Est GFR (MDRD) Af Amer 98, Est GFR (MDRD) Non-Af 81, BUN/Creatinine Ratio 21.2 H, Glucose 181 H, Calcium 8.7 07/28/22 06:17: POC Glucose 184 H Radiography Diagnostic Testing: Radiology Impression Lumbar Spine MRI 07/26/22 19:57 IMPRESSION: Moderate acute L1 compression fracture as described above. Mild chronic L3 compression fracture. Mild multilevel degenerative disc disease with mild spinal canal stenosis and foraminal narrowing at L2-3. Electronically Signed: Libby Celis MD at 14:09 EDT , Physical Exam Narrative General: Alert, oriented, no apparent distress HEENT: Bottom lip appears to have some ecchymosis, normocephalic Eyes: Anicteric, normal conjunctiva, extraocular movements grossly intact Neck: Supple Respiratory: Clear to auscultation bilaterally, normal respiratory effort Cardiovascular: Regular rate and rhythm GI: Soft, nontender, nondistended Extremities: No edema Musculoskeletal: Moving all extremities, laying flat in bed though reports pain with moving Neuro: No overt focal neurological deficits Skin: No rashes appreciated Psych: Cooperative Assessment & Plan Assessment/Plan (1) Irritable colon: (2) Diabetes mellitus: (3) Anxiety: (4) Acute back pain: PLAN: Plan #Acute compression fracture of L1 vertebra after a fall -CT scan of abdomen after fall showed acute compression fracture in L1 vertebra, she had pain at rest lying flat with spasm but had not noted radiculopathy -MRI ordered -Pain control -Dr. Jones with pain management consulted -07/28: Patient for procedure today, PT/OT, pain control #Recent fall -Unclear etiology -Does take Xanax 0.5 mg 3 times daily as needed but appears this has been chronic -Was recently prescribed meclizine and Phenergan but this was 2 weeks ago and unlikely to suddenly cause this -Cannot rule out hypoglycemia as a culprit however was not hypoglycemic on arrival but does take pioglitazone and Ozempic as well as metformin at home -We will need PT/OT #SVT status post ablation -Ablation 2 weeks ago per chart #Type 2 diabetes mellitus -Home medications listed as pioglitazone, metformin, glimepiride continued by admitting physician -Blood glucose checks and sliding scale insulin #DVT ppx: Lovenox subq Frida Patel MD Time spent in the patient's overall evaluation,decision-making process, review of diagnostic data, adjustment of management, discussion with other providers, nursing nursing and ancillary staff involved in patient's care documentation, 30 minutes Charges/Coding Visit Charges Inpatient E&M: 38271 Subs Hosp L2
[2022-07-28] MEDS: cycloBENZAPRine HCl 5 MG TABLET PO ×2 (09:35→20:51)
[2022-07-28] MEDS: Ondansetron ODT 4 MG Tablet PO ×2 (09:35→20:51)
[2022-07-28] MEDS: HYDROmorphone 1 MG/ML Syringe IV ×2 (09:35→20:50)
[2022-07-28] MEDS: Nortriptyline 10 MG Capsule PO (09:36)
[2022-07-28] MEDS: 0.9% Saline Lock 10 ML Syringe IV ×3 (09:37→20:51)
--- NOTE | 2022-07-28 10:09 | CASEMGMT ---
Addendum entered by Jennifer Arauz 07/28/22 10:42: Resources for home delivered meals was provided to pt. MD Patel reported MD Jones is not able to do pt's surgery today to do complication. JUAN ANTONIO reached out to Rosana at [facility] to determine if pt can admit to TCU and then MD Jones to coordiate surgery with MD Buchanan and others at [facility] so pt can return once the surgery is complete. Will await response from Rosana and update MD Patel of news. Original Note: Social Work Pt's daughter expressed concerns with pt not bathing due to fear of falling and hurting self. Daughter also shared pt unable to prepare meals for self due to decreased ability to ambulate and transport self to grocery store for food. Pt would benefit from home delivered meals and personal aide 1-2 times per week to assist with bathing. JUAN ANTONIO discussed with pt and pt daughter the possibility of services through [facility]. Pt and daughter agreeable for JUAN ANTONIO to send referral. JUAN ANTONIO completed referral online. Update sent to JUAN ANTONIO Latham at [facility]. Pt will be transferring to [facility] tomorrow, 07/29. PLAN: TCU, when medically ready CRESENCIO Sosa
[2022-07-28 12:00] LABS: Bedside Glucose 187 mg/dL (74-106)
[2022-07-28] MEDS: Lactated Ringers 1,000 ML 15 ML IV (14:25)
--- NOTE | 2022-07-28 15:30 | RAD_ITS ---
INDICATION: Low back pain. Lumbar compression fractures. Kyphoplasty L1. EXAMINATION/TECHNIQUE: X-RAY - Lumbar fluoroscopy, intraoperative. COMPARISON: July 27, 2022 MRI lumbar spine. FINDINGS: Total fluoroscopy time: 203.8 seconds Dose: 183.5 10 fluoroscopic spot images were acquired. Support for kyphoplasty procedures at L1 and L3. RAD/Lumbar Spine 2 or 3 Views IMPRESSION: Fluoroscopic support for kyphoplasty procedures. Electronically Signed: Jose Dunbar MD at 18:17 EDT ,
--- NOTE | 2022-07-28 16:04 | NURSING ---
spoke with Katharine phone nurse at Dr. Guillermo office, states she will fax over pt home med list to [facility]
[2022-07-28] MEDS: Cefazolin 2 GM in 0.9% Normal Saline 100 ML IV (16:08)
[2022-07-28 18:11] LABS: Bedside Glucose 172 mg/dL (74-106)
[2022-07-28] MEDS: amLODIPine 5 MG Tablet PO (18:32)
[2022-07-28] MEDS: Insulin Lispro 100 UNIT/ML INSULN.PEN SC ×2 (18:32→21:03)
[2022-07-28] MEDS: Glimepiride 2 MG Tablet PO (18:33)
[2022-07-28] MEDS: Nortriptyline 25 MG Capsule PO (20:51)
[2022-07-28] MEDS: Atorvastatin Calcium 10 MG Tablet PO (20:51)
[2022-07-28] MEDS: Nystatin Powder 15gm Bottle 1 APPLIC TOPICAL (20:52)
[2022-07-28] MEDS: Metoprolol(XL)Succ 25 MG Tablet PO (20:52)
[2022-07-28] MEDS: Menthol/Lanolin/Calamine/Znox 113 GM Tube 1 APPLIC TOPICAL (20:52)
[2022-07-28 22:25] LABS: Bedside Glucose 172 mg/dL (74-106)
[2022-07-29 03:10] VITALS: BP 147/83; PULSE 108; RESP 16; TEMP 36.6; O2SAT 94
[2022-07-29 06:05] LABS: Absolute Lymphocyte Count 0.81 X10^3/uL (0.83-4.51); Absolute Neutrophil Count 4.7 X10^3/uL (2.0-7.7); Basophil# 0.02 X10^3/uL; Basophil% 0.3 % (0-1); Eosinophil# 0.15 X10^3/uL; Eosinophils% 2.4 % (0-5); Hematocrit 32.9 % (37-47); Hemoglobin 10.8 g/dL (12.0-15.0); Lymphocyte # 0.81 X10^3/ul (0.83-4.51); Lymphocyte % 13.1 % (19-41); Mean Corp Hgb Conc 32.8 g/dL (32-36); Mean Corpuscular Hgb 28.4 pg (27.0-32.0); Mean Corpuscular Volume 86.6 fL (81-99); Mean Platelet Vol. 10.1 fl (6.2-12.0); Monocyte# 0.45 X10^3/uL; Monocyte% 7.3 % (0-10); NRBC Flagged by Analyzer 0 % (0-5); Neutrophil # 4.73 X10^3/uL (2.7-7.7); Neutrophil % 76.7 % (47-70); Platelet Count 197 K/mm3 (150-450); RBC Distribution Width CV 14.2 % (11.6-14.6); RBC Distribution Width SD 43.1 fl (35.1-43.9); White Blood Count 6.2 K/mm3 (4.4-11.0)
[2022-07-29 06:36] LABS: Anion Gap 4 (5-15); BUN 14 mg/dL (7-18); BUN/Creat Ratio 15.7 RATIO (10-20); Calcium,Total 8.5 mg/dL (8.5-10.1); Chloride 105 mmol/L (98-107); Creatinine, Serum 0.89 mg/dL (0.55-1.02); EST Glomerular Filtration Rate 66 mL/min (>60); Est Glom Filt Rate - Afr Amer 80 mL/min (>60); Estimated Creatinine Clearance 59.33 ml/min; Glucose 202 mg/dL (74-106); Potassium 3.5 mmol/L (3.5-5.1); Sodium Level 138 mmol/L (136-145)
[2022-07-29] MEDS: Insulin Lispro 100 UNIT/ML INSULN.PEN SC ×2 (06:51→11:30)
[2022-07-29 07:20] LABS: Bedside Glucose 201 mg/dL (74-106)
[2022-07-29 07:53] VITALS: BP 147/69; PULSE 109; RESP 18; TEMP 37.3; O2SAT 92
[2022-07-29 07:55] VITALS: O2SAT 93
[2022-07-29] MEDS: Meclizine HCl 25 MG Tablet PO ×2 (07:56→13:48)
[2022-07-29] MEDS: Glimepiride 2 MG Tablet PO (07:56)
[2022-07-29] MEDS: ALPRAZolam 0.5 MG Tablet PO (07:56)
[2022-07-29] MEDS: cycloBENZAPRine HCl 5 MG TABLET PO ×2 (07:57→13:48)
[2022-07-29 07:58] VITALS: PULSE 109
[2022-07-29] MEDS: Venlafaxine XR 150 MG Capsule PO (07:58)
[2022-07-29] MEDS: Nystatin Powder 15gm Bottle 1 APPLIC TOPICAL (07:58)
[2022-07-29] MEDS: Metoprolol(XL)Succ 25 MG Tablet PO (07:58)
[2022-07-29] MEDS: amLODIPine 5 MG Tablet PO (07:58)
[2022-07-29] MEDS: Menthol/Lanolin/Calamine/Znox 113 GM Tube 1 APPLIC TOPICAL (07:59)
[2022-07-29] MEDS: Pioglitazone Hydrochloride 15 MG Tablet PO (07:59)
--- NOTE | 2022-07-29 08:47 | EKG12_ITS ---
Test Reason : TACHY Blood Pressure : / mmHG Vent. Rate : 108 BPM Atrial Rate : 108 BPM P-R Int : 214 ms QRS Dur : 084 ms QT Int : 326 ms P-R-T Axes : 071 -50 042 degrees QTc Int : 436 ms Sinus tachycardia with 1st degree A-V block Left axis deviation Abnormal ECG When compared with ECG of 26-JUL-2022 16:37, FL interval has increased Confirmed by SOO GOLDEN, STEVE ([id number]), continuity editor GAVIOTA LAW ([id number]) on 07/30/2022 8:26:56 AM Referred By: ELISABETH Confirmed By:STEVE VANN MD
[2022-07-29] MEDS: Fluticasone 0.05% 1 SPRAY NASAL.SRY 2 SPRAY NASAL (09:49)
[2022-07-29] MEDS: Polyethylene Glycol 3350 17 GM PACKET 34 GM PO (09:49)
[2022-07-29 11:50] LABS: Bedside Glucose 223 mg/dL (74-106)
[2022-07-29] MEDS: Psyllium 1 PACKET PO (13:47)
[2022-07-29 13:54] VITALS: BP 141/69; PULSE 113; RESP 18; TEMP 36.6; O2SAT 92
--- NOTE | 2022-07-29 16:03 | PCM.TXEXTCAR ---
Diet Diet Order/Speech Therapy: 07/28/22 18:25 Carb [Diet: Carbohydrate Controlled] Is pt able to select menu?: Yes Routine Orders/Code Status Suppository Type: Dulcolax 10mg Suppository Frequency: Daily PRN Wound(s) multiple abdominal wounds: Wound Type: various stages of healing areas MID LOWER BACK: Wound Type: Surgical Incision RT UPPER ARM: Wound Type: IV INFILTRATE Therapies Physical Therapy: Eval and Treat Problem/Diagnosis (1) Irritable colon: Status: Chronic (2) Diabetes mellitus: Status: Acute Code(s): E11.9 - Type 2 diabetes mellitus without complications (3) Anxiety: Status: Acute Code(s): F41.9 - Anxiety disorder, unspecified (4) Acute back pain: Status: Acute Code(s): M54.9 - Dorsalgia, unspecified Plan #Acute compression fracture of L1 vertebra after a fall- s/p kyphoplasty at L1 and L3 #Recent fall #SVT status post ablation #Type 2 diabetes mellitus #HTN Allergies/Procedures Done in Hospital Allergies acetaminophen [From Vicodin] Allergy (Verified 07/26/22 15:50) Unknown doxycycline Allergy (Verified 07/26/22 15:50) Diarrhea hydrocodone [From Vicodin] Allergy (Verified 07/26/22 15:50) Unknown ibuprofen [From Motrin] Allergy (Verified 07/26/22 15:50) Unknown lovastatin [From Advicor] Allergy (Verified 07/26/22 15:50) Unknown niacin [From Advicor] Allergy (Verified 07/26/22 15:50) Unknown Procedures: - (Kyphoplasty) Type of Care/Length of Stay Estimated LOS: Convalescent Care Less Than 30 days Type of Care Needed: Skilled Rehab Potential: Fair Prognosis: Fair Additional Orders/Day of Discharge Day of Discharge: 07/29/22 Discharge Plan Admission Admit Date/Time: 07/26/22 19:48 Primary Reason for Your Visit: Fall and back pain Attending Provider: Frida Patel Primary Care Provider: Kanwal Guillermo Consulting Providers: Jumana Jones ; Jose Cartagena Instructions Patient Instructions: ED Fall Prevention Discharge Orders/Prescriptions Prescriptions: New polyethylene glycol 3350 17 gram Powder In Packet 17 g PO BID Qty: 0 0RF amlodipine 5 mg Tablet 5 mg PO DAILY Qty: 0 0RF cyclobenzaprine 5 mg Tablet 5 mg PO TID PRN PRN (Reason: Muscle Spasm) Qty: 0 0RF oxycodone 5 mg tablet 5 mg PO TID PRN (Reason: pain) 3 Days Qty: 9 0RF Continued metformin 500 MG tablet 500 mg PO BIDCM diphenoxylate-atropine [Lomotil] 1 EACH tablet 1 ea PO 4X/DAY PRN PRN (Reason: Diarrhea) fluticasone propionate 1 SPRAY spray,suspension 2 spray NASAL DAILY meclizine 25 MG tablet,chewable 25 mg PO 4X/DAY PRN (Reason: Vertigo) Lovastatin [Mevacor] 40 MG tablet 40 mg PO QHS pioglitazone 15 MG tablet 15 mg PO DAILY ondansetron 4 MG tablet 4 mg PO Q8H PRN PRN (Reason: Nausea) Qty: 10 0RF venlafaxine [Effexor XR] 150 mg Capsule,Extended Release 24hr 150 mg PO DAILY nortriptyline 25 mg Capsule 25 - 50 mg PO QHS metoprolol succinate 25 mg Tablet Extended Release 24 Hr 25 mg PO BID Ozempic 1 mg/dose (4 mg/3 mL) Pen Injector 1 mg SUBCUT QWEEK alprazolam [Xanax] 0.5 MG tablet 0.5 mg PO TID PRN (Reason: Anxiety) 3 Days Qty: 6 0RF Changed glimepiride 2 MG tablet 2 mg PO BID 30 Days Qty: 0 0RF Referrals / Follow Up: Jumana Jones MD [Med Staff - Active Staff] - Within 1 Month Kanwal Guillermo MD [Primary Care Provider] - Within 1 Week Disposition Disposition (needs filled in before D/C Order can be placed): Group Home Facility
--- NOTE | 2022-07-29 16:06 | PCM.DC.SUM ---
Providers Date of Admission: 07/26/22 Date of Discharge: 07/29/22 Primary Care Physician: Dr. Kanwal Guillermo MD Consultations 07/26/22 21:14 Consult: Pain Management Routine Consulting Provider: Jumana Jones Reason for Consult: Acute compression fracture L1 EMERGENT Consult: No MD Notified: Yes Date Notified: 07/26/22 Time Notified: 19:52 Method of Notification: Verbal Reason For Visit: FALL WITHCOMPRESSION FRACTURE OF L1 Diagnosis Discharge Diagnosis (1) Irritable colon: Status: Chronic (2) Diabetes mellitus: Status: Acute Code(s): E11.9 - Type 2 diabetes mellitus without complications (3) Anxiety: Status: Acute Code(s): F41.9 - Anxiety disorder, unspecified (4) Acute back pain: Status: Acute Code(s): M54.9 - Dorsalgia, unspecified Plan #Acute compression fracture of L1 vertebra after a fall- s/p kyphoplasty at L1 and L3 #Recent fall #SVT status post ablation #Type 2 diabetes mellitus #HTN Medications at Discharge Home Medications Lovastatin [Mevacor] 40 mg PO QHS cholesterol 07/24/16 diphenoxylate-atropine 2.5 mg-0.025 mg tablet (Lomotil) 1 ea PO 4X/DAY PRN PRN Diarrhea 07/24/16 fluticasone propionate 50 mcg/actuation nasal spray,suspension 2 spray DAILY allergies 07/24/16 meclizine 25 mg chewable tablet 25 mg PO 4X/DAY PRN Vertigo 07/24/16 metformin 500 mg tablet 500 mg PO BIDCM diabetes 07/24/16 ondansetron 4 mg disintegrating tablet 4 mg PO Q8H PRN PRN Nausea #10 tabs 05/10/20 pioglitazone 15 mg tablet 15 mg PO DAILY diabetes 05/10/20 metoprolol succinate 25 mg tablet,extended release 24 hr 25 mg PO BID BP 07/28/22 nortriptyline 25 mg capsule 25 - 50 mg PO QHS Depression 07/28/22 semaglutide 1 mg/dose (4 mg/3 mL) subcutaneous pen injector (Ozempic) 1 mg subcut QWEEK Blood sugar 07/28/22 venlafaxine 150 mg capsule,extended release 24 hr (Effexor XR) 150 mg PO DAILY Mood 05/10/23 alprazolam 0.5 mg tablet (Xanax) 0.5 mg PO TID PRN Anxiety 3 days #6 tabs 07/29/22 amlodipine 5 mg tablet 5 mg PO DAILY BP 07/29/22 cyclobenzaprine 5 mg tablet 5 mg PO TID PRN PRN Muscle Spasm #0 tabs 07/29/22 glimepiride 2 mg tablet 2 mg PO BID diabetes 30 days #0 tabs 07/29/22 oxycodone 5 mg tablet 5 mg PO TID PRN pain 3 days #9 tabs 07/29/22 polyethylene glycol 3350 17 gram oral powder packet 17 g PO BID Stool softner 07/29/22 Hospital Course Procedures - (Kyphoplasty) Summary of Care Provided Minutes Spent on Discharge: 31 Hospital Course: Have [id number] female history of type 2 diabetes, SVT status post ablation, type 2 diabetes, hypertension presented to [facility] 07/26/2022 after a fall with increasing pain. She had a CT of the abdomen which revealed acute compression fracture of L1 and she was admitted due to intractable pain. She had MRI which demonstrated moderate acute L1 compression fracture as well as mild chronic L3 compression fracture and multilevel mild disc degenerative disease with mild spinal canal stenosis and foraminal narrowing at L2-L3. Pain management was consulted and she underwent kyphoplasty 07/28/2022. Patient still had pain but did report she was feeling better. On day of discharge it was noted that she was tachycardic but EKG showed low-grade sinus tach and after speaking with patient and evaluating the second time suspect it was due to pain. She had no other complaints and no numbness, weakness, tingling. Physical Exam Narrative General: Alert, oriented, no apparent distress HEENT: Bottom lip appears to have some ecchymosis, normocephalic Eyes: Anicteric, normal conjunctiva, extraocular movements grossly intact Neck: Supple Respiratory: Clear to auscultation bilaterally, normal respiratory effort Cardiovascular: Regular rate and rhythm GI: Soft, nontender, nondistended Extremities: No edema Musculoskeletal: Moving all extremities, laying flat in bed though reports pain with moving Neuro: No overt focal neurological deficits Skin: No rashes appreciated Psych: Cooperative Weight / BMI Weight Weight: 110 kg Body Mass Index (BMI) 36.3 ABG / Lab / Microbiology Data Result Diagrams: 07/29/22 06:00 07/29/22 06:00 Laboratory: Laboratory Results - last 24 hr 07/28/22 17:52: POC Glucose 172 H 07/28/22 21:02: POC Glucose 172 H 07/29/22 06:00: WBC 6.2, RBC 3.80 L, Hgb 10.8 L, Hct 32.9 L, MCV 86.6, MCH 28.4, MCHC 32.8, RDW Std Deviation 43.1, RDW Coeff of [place] 14.2, Plt Count 197, MPV 10.1, Immature Gran % (Auto) 0.200, Neut % (Auto) 76.7 H, Lymph % (Auto) 13.1 L, [place] % (Auto) 7.3, Eos % (Auto) 2.4, Baso % (Auto) 0.3, Absolute Neuts (auto) 4.7, Absolute Lymphs (auto) 0.81 L, Nucleated RBC % 0 07/29/22 06:00: Sodium 138, Potassium 3.5, Chloride 105, Carbon Dioxide 29.0, Anion Gap 4 L, BUN 14, Creatinine 0.89, Estim Creat Clear Calc 59.33, Est GFR (MDRD) Af Amer 80, Est GFR (MDRD) Non-Af 66, BUN/Creatinine Ratio 15.7, Glucose 202 H, Calcium 8.5 07/29/22 06:50: POC Glucose 201 H 07/29/22 11:28: POC Glucose 223 H Microbiology: Microbiology 07/29/22 14:00 Nasal Secretion SARS-CoV-2 Antigen (Rapid) - Final Radiography Diagnostic Testing: Radiology Impression Lumbar Spine X-Ray 07/28/22 15:30 IMPRESSION: Fluoroscopic support for kyphoplasty procedures. Electronically Signed: Jose Dunbar MD at 18:17 EDT , D/C Instructions Discharge Diet: No restrictions Meaningful Use Info Meaningful Use Diagnoses (Choose all that apply): None applicable Discharge Plan Admission Admit Date/Time: 07/26/22 19:48 Primary Reason for Your Visit: Fall and back pain Attending Provider: Frida Patel Primary Care Provider: Kanwal Guillermo Consulting Providers: Jumana Jones ; Jose Cartagena Instructions Patient Instructions: ED Fall Prevention Additional Instructions / Restrictions: - Follow-up with Dr. Jones within 1 month -Please call your primary care provider's office upon discharge to schedule a hospital follow up within 1 week. -For any concerning signs or symptoms please call 911 or proceed to the nearest emergency department Discharge Orders/Prescriptions Prescriptions: New cyclobenzaprine 5 mg Tablet 5 mg PO TID PRN PRN (Reason: Muscle Spasm) Qty: 0 0RF oxycodone 5 mg tablet 5 mg PO TID PRN (Reason: pain) 3 Days Qty: 9 0RF Continued metformin 500 MG tablet 500 mg PO BIDCM diphenoxylate-atropine [Lomotil] 1 EACH tablet 1 ea PO 4X/DAY PRN PRN (Reason: Diarrhea) fluticasone propionate 1 SPRAY spray,suspension 2 spray NASAL DAILY meclizine 25 MG tablet,chewable 25 mg PO 4X/DAY PRN (Reason: Vertigo) Lovastatin [Mevacor] 40 MG tablet 40 mg PO QHS pioglitazone 15 MG tablet 15 mg PO DAILY ondansetron 4 MG tablet 4 mg PO Q8H PRN PRN (Reason: Nausea) Qty: 10 0RF venlafaxine [Effexor XR] 150 mg Capsule,Extended Release 24hr 150 mg PO DAILY nortriptyline 25 mg Capsule 25 - 50 mg PO QHS metoprolol succinate 25 mg Tablet Extended Release 24 Hr 25 mg PO BID Ozempic 1 mg/dose (4 mg/3 mL) Pen Injector 1 mg SUBCUT QWEEK alprazolam [Xanax] 0.5 MG tablet 0.5 mg PO TID PRN (Reason: Anxiety) 3 Days Qty: 6 0RF Changed glimepiride 2 MG tablet 2 mg PO BID 30 Days Qty: 0 0RF No Action polyethylene glycol 3350 17 gram powder in packet 17 g PO BID amlodipine 5 mg tablet 5 mg PO DAILY Referrals / Follow Up: Jumana Jones MD [Med Staff - Active Staff] - Within 1 Month Kanwal Guillermo MD [Primary Care Provider] - Within 1 Week Disposition Disposition (needs filled in before D/C Order can be placed): [facility] Charges/Coding Visit Charges Inpatient E&M: 98122 Disch Hosp >30min
--- NOTE | 2022-07-29 16:22 | CASEMGMT ---
Social Work Per physician, pt is ready for discharge today. Pt updated and agreeable to discharge to TCU today. Discharge orders faxed to TCU. Nursing and TCU updated on d/c plan. Phone call to pt dgt and VM left informing of discharge today. Plan: TCU, skilled level of care CRESENCIO Walker
== END 2022-07-29 17:46 | disposition skilled nursing facility (03) | DRG 516 ==
LOC: ED 19:28 → MS3 20:38
PROVIDERS: Anesthesiology; Anesthesiology Pain Medicine; Admitting Provider Family Medicine; Emergency Provider Student in an Organized Health Care Education/Training Program; PCP Internal Medicine; Visit Provider Internal Medicine
PROC: 0QS03ZZ Reposition Lumbar Vertebra, Percutaneous Approach (ICD-10-PCS; principal; 2022-07-28 14:45)
DX: S32.019A Unspecified fracture of first lumbar vertebra, initial encounter for closed fracture (principal); I47.1 Supraventricular tachycardia; E11.9 Type 2 diabetes mellitus without complications; S32.039A Unspecified fracture of third lumbar vertebra, initial encounter for closed fracture; K58.9 Irritable bowel syndrome, unspecified; S00.83XA Contusion of other part of head, initial encounter; S00.531A Contusion of lip, initial encounter; R26.2 Difficulty in walking, not elsewhere classified; E78.00 Pure hypercholesterolemia, unspecified; F41.9 Anxiety disorder, unspecified; M51.36 Other intervertebral disc degeneration, lumbar region; M48.061 Spinal stenosis, lumbar region without neurogenic claudication; I10 Essential (primary) hypertension; M62.830 Muscle spasm of back; W19.XXXA Unspecified fall, initial encounter; Z79.84 Long term (current) use of oral hypoglycemic drugs; R55 Syncope and collapse; R53.1 Weakness; E66.9 Obesity, unspecified; Z68.36 Body mass index [BMI] 36.0-36.9, adult; Z20.822 Contact with and (suspected) exposure to COVID-19; Z79.899 Other long term (current) drug therapy; Z96.652 Presence of left artificial knee joint
CPT/HCPCS: 36415; 70450; 70486; 71260; 72100; 72125; 72148; 74177; 76000; 80048; 80053; 81001; 82550; 82962; 83036; 84484; 85025; 85610; 87426; 93005; 94668; 97162; 97166; 97530; 97535; 99285; J7030; J7120; A4216; J2405

== ENCOUNTER 2022-07-29 17:55 | Inpatient (IN) | payer MEDICARE, OTHER, SELFPAY ==
[2022-07-29 18:00] VITALS: BMI 36.8
[2022-07-29 19:22] VITALS: BP 159/76; PULSE 99; RESP 16; TEMP 36.2; O2SAT 91
--- NOTE | 2022-07-29 19:32 | HP.PCM_ITS ---
HPI - General General Date of Admission: 07/29/22 Date of Service: 07/30/22 Chief Complaint: Here for rehabilitation. HPI Narrative 07/26/2022 VELMA AUGUSTINE, is a 72 Female who presents to [facility] Emergency Department with fall. 07/26/2022 EKG sinus tachycardia, left axis deviation. Unwitnessed fall at home, weak, fell on way to bathroom. Woke up on face, lower lip bruising, unable to get up. Unknown how long on floor, has back pain, spasms. Back pain slightly worse. Morphine, Zofran, saline 1 liter given. WBC 13.1, CPK 293, Troponin 14. CT brain negative, CT cervical spine negative, CT face negative. CT chest/abdomen/pelvis showed new L1 compression fracture. 07/26/2022 Admit to Hospital. [facility], Dr. Jones for L1 compression fracture. 07/27/2022 Muscle spasms. MRI LS spine ordered. Cause of fall unknown. 07/28/2022 Severe low back pain. PT/OT. Dr. Jones performed L1 kyphoplasty. 07/29/2022 Admit to TCU with debility, here for rehabilitation, strengthening, prior to discharge home alone. [facility] Medical History Anxiety Anxiety Arthritis Back pain Blackout Diabetes Diabetes mellitus DVT (deep venous thrombosis) High cholesterol History of colon polyps History of IBS History of stress test Hyperlipidemia Non-smoker Post-menopausal Wears glasses Home Medications Lovastatin [Mevacor] 40 mg PO QHS cholesterol 07/24/16 [History Last Taken 07/25/22] diphenoxylate-atropine 2.5 mg-0.025 mg tablet (Lomotil) 1 ea PO 4X/DAY PRN PRN Diarrhea 07/24/16 [History Last Taken Unknown] fluticasone propionate 50 mcg/actuation nasal spray,suspension 2 spray DAILY allergies 07/24/16 [History Last Taken 07/25/22] meclizine 25 mg chewable tablet 25 mg PO 4X/DAY PRN Vertigo 07/24/16 [History Last Taken Unknown] metformin 500 mg tablet 500 mg PO BIDCM diabetes 07/24/16 [History Last Taken 07/25/22] ondansetron 4 mg disintegrating tablet 4 mg PO Q8H PRN PRN Nausea #10 tabs 05/10/20 [Rx Last Taken Unknown] pioglitazone 15 mg tablet 15 mg PO DAILY diabetes 05/10/20 [History Last Taken 07/25/22] metoprolol succinate 25 mg tablet,extended release 24 hr 25 mg PO BID BP 07/28/22 [History Last Taken Unknown] nortriptyline 25 mg capsule 25 - 50 mg PO QHS Depression 07/28/22 [History Last Taken Unknown] semaglutide 1 mg/dose (4 mg/3 mL) subcutaneous pen injector (Ozempic) 1 mg subcut QWEEK Blood sugar 07/28/22 [History Last Taken 07/23/22] venlafaxine 150 mg capsule,extended release 24 hr (Effexor XR) 150 mg PO DAILY Mood 07/28/22 [History Last Taken Unknown] alprazolam 0.5 mg tablet (Xanax) 0.5 mg PO TID PRN Anxiety 3 days #6 tabs [Rx Last Taken Unknown] amlodipine 5 mg tablet 5 mg PO DAILY BP 07/29/22 [History Last Taken Unknown] cyclobenzaprine 5 mg tablet 5 mg PO TID PRN PRN Muscle Spasm #0 tabs 07/29/22 [Rx Last Taken Unknown] glimepiride 2 mg tablet 2 mg PO BID diabetes 30 days #0 tabs 07/29/22 [Rx Last Taken Unknown] oxycodone 5 mg tablet 5 mg PO TID PRN pain 3 days #9 tabs 07/29/22 [Rx Last Taken Unknown] polyethylene glycol 3350 17 gram oral powder packet 17 g PO BID Stool softner 07/29/22 [History Last Taken Unknown] Allergy/AdvReac Type Severity Reaction Status Date / Time acetaminophen [From Vicodin] Allergy Unknown Verified 07/26/22 15:50 doxycycline Allergy Diarrhea Verified 07/26/22 15:50 hydrocodone [From Vicodin] Allergy Unknown Verified 07/26/22 15:50 ibuprofen [From Motrin] Allergy Unknown Verified 07/26/22 15:50 lovastatin [From Advicor] Allergy Unknown Verified 07/26/22 15:50 niacin [From Advicor] Allergy Unknown Verified 07/26/22 15:50 Surgical History History of colonoscopy with polypectomy History of total left knee replacement Hx laparoscopic cholecystectomy Hx of colonoscopy Hx of tubal ligation Social History (Updated 07/29/22 @ 19:[address] Jagdeep Buchanan MD) adopted: Yes household members: none Smoking Status: Never smoker alcohol intake: never substance use type: does not use Vital Signs Vital Signs Vital Signs: 07/29/22 19:22 Temperature 97.1 F L Temperature Source Temporal Pulse Rate 99 Respiratory Rate 16 Blood Pressure 159/76 H Blood Pressure Mean 103 Blood Pressure Source Monitor Blood Pressure Position Semi-Fowlers Blood Pressure Location Left Arm Pulse Ox 91 Oxygen Flow Rate (L/min) 2 Physical Exam Const alert General Appearance: cooperative HEENT normocephalic Eyes PERRL and EOMs intact bilaterally Neck supple, no JVD and no carotid bruits Resp normal respiratory effort, normal air movement and clear to auscultation bilaterally Cardio regular rate and regular rhythm GI normal to inspection, nondistended, normoactive bowel sounds, non-tender and non-distended Extremity normal capillary refill General Extremity: Negative for edema Skin no rashes or lesions noted General Skin Exam: no breakdown Psych affect normal Appearance: appropriate Results Lab / Micro Data Result Diagrams: 07/30/22 05:22 07/30/22 05:22 Assessment & Plan Assessment/Plan (1) Debility: (2) Syncope: (3) Compression fracture of L1 lumbar vertebra: (4) Hyperlipidemia: (5) Anxiety: (6) Chronic diarrhea: (7) Allergic rhinitis: (8) Diabetes mellitus: (9) Dizziness: (10) Diabetic neuropathy: PLAN: Plan 72 year old female with below past medical history hospitalized after fall, L1 compression fracture, underwent L1 kyphoplasty 07/28/[address] Jones, admitted to TCU with debility, here for rehabilitation, strengthening, prior to discharge home alone. * Debility - PT/OT. * Pain - Oxycodone 5mg q4h prn pain (1-10). * Bowel - Miralax 17gm bid, senna/colace 2 tablets bid, Lactulose 20gm po x 1 dose, Lomotil 1 tablet 4x/day prn. * Adult immunization - Administer pneumonia vaccine, covid19 vaccine, flu vaccine as appropriate. * DVT prophylaxis - HAS-BLED score 1 intermediate risk of bleeding, Elizabeth score 7 High risk of blood clots, overall risk intermediate, Rx Xarelto 10mg daily x 10 days. * Anxiety - Xanax 0.5mg tid prn, stable chronic nursing home use, GDR not recommended. * Hypertension - Metoprolol succinate 25mg bid, Amlodipine 5mg daily. * Hyperlipidemia - Atorvastatin 10mg qhs. * Muscle spasm - Flexeril 5mg tid prn. * Allergic rhinitis - Flonase 2 sprays nasal daily. * Diabetes Mellitus II - Metformin 500mg bidcm, Glimepiride 2mg bidcm, Pioglitazone 15mg daily, Ozempic 1mg per week. * Dizziness - Meclizine 25mg 4x/day prn. * Diabetic neuropathy - Nortriptyline 10mg qhs. * Nausea - Zofran 4mg q8h prn. 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
[2022-07-29 20:00] VITALS: PULSE 103; RESP 16; O2SAT 93
[2022-07-29] MEDS: Nortriptyline 10 MG Capsule PO (20:50)
[2022-07-29] MEDS: Atorvastatin Calcium 10 MG Tablet PO (20:50)
[2022-07-30 05:27] LABS: Absolute Lymphocyte Count 0.71 X10^3/uL (0.83-4.51); Absolute Neutrophil Count 3.3 X10^3/uL (2.0-7.7); Basophil# 0.02 X10^3/uL; Basophil% 0.4 % (0-1); Eosinophil# 0.22 X10^3/uL; Eosinophils% 4.7 % (0-5); Hematocrit 31.1 % (37-47); Hemoglobin 10.1 g/dL (12.0-15.0); Lymphocyte # 0.71 X10^3/ul (0.83-4.51); Lymphocyte % 15.2 % (19-41); Mean Corp Hgb Conc 32.5 g/dL (32-36); Mean Corpuscular Hgb 28.2 pg (27.0-32.0); Mean Corpuscular Volume 86.9 fL (81-99); Mean Platelet Vol. 10.1 fl (6.2-12.0); Monocyte# 0.42 X10^3/uL; NRBC Flagged by Analyzer 0 % (0-5); Neutrophil # 3.28 X10^3/uL (2.7-7.7); Neutrophil % 70.3 % (47-70); Platelet Count 172 K/mm3 (150-450); RBC Distribution Width CV 13.9 % (11.6-14.6); RBC Distribution Width SD 43.1 fl (35.1-43.9); Red Blood Count 3.58 M/mm3 (4.2-5.4); White Blood Count 4.7 K/mm3 (4.4-11.0)
[2022-07-30] MEDS: Venlafaxine XR 150 MG Capsule PO (05:40)
[2022-07-30 05:42] VITALS: BP 101/50; PULSE 101
[2022-07-30] MEDS: Metoprolol(XL)Succ 25 MG Tablet PO ×2 (05:42→17:18)
[2022-07-30 05:48] LABS: Anion Gap 6 (5-15); BUN 15 mg/dL (7-18); BUN/Creat Ratio 20.8 RATIO (10-20); Calcium,Total 8.3 mg/dL (8.5-10.1); Chloride 102 mmol/L (98-107); Creatinine, Serum 0.72 mg/dL (0.55-1.02); EST Glomerular Filtration Rate 85 mL/min (>60); Est Glom Filt Rate - Afr Amer 103 mL/min (>60); Glucose 201 mg/dL (74-106); Potassium 3.4 mmol/L (3.5-5.1); Sodium Level 137 mmol/L (136-145)
[2022-07-30] MEDS: Fluticasone 0.05% 1 SPRAY NASAL.SRY 2 SPRAY NASAL (05:48)
[2022-07-30 06:35] LABS: Bedside Glucose 187 mg/dL (74-106)
--- NOTE | 2022-07-30 07:39 | NURSING ---
Patient extensive assist with care x2 staff assist, patient reports decreased mobility related to fall prior to admission to hospital. Recent kyphoplasty, surgical dressings intact x4. Patient requesting purewik at HS due to difficulty with mobility, written request left for Dr. Buchanan regarding request. Patient states daughter plan to bring home supply of ozempic to unit on tuesday. call light in reach.
[2022-07-30] MEDS: cycloBENZAPRine HCl 5 MG TABLET PO ×2 (08:00→22:09)
[2022-07-30] MEDS: metFORMIN HCl 500 MG Tablet PO ×2 (08:00→17:19)
[2022-07-30] MEDS: Pioglitazone Hydrochloride 15 MG Tablet PO (08:00)
[2022-07-30] MEDS: Glimepiride 2 MG Tablet PO ×2 (08:01→17:19)
[2022-07-30] MEDS: amLODIPine 5 MG Tablet PO (08:04)
[2022-07-30] MEDS: Ondansetron ODT 4 MG Tablet PO (08:11)
[2022-07-30] MEDS: Potassium Chloride Oral Tablet 20 MEQ PO (09:13)
[2022-07-30] MEDS: ALPRAZolam 0.5 MG Tablet PO ×2 (09:18→22:23)
[2022-07-30] MEDS: Menthol/Lanolin/Calamine/Znox 113 GM Tube 1 APPLIC TOPICAL ×2 (09:25→22:09)
[2022-07-30] MEDS: Nystatin Powder 15gm Bottle 1 APPLIC TOPICAL ×2 (09:25→22:09)
[2022-07-30] MEDS: Tuberculin,Purif.prot.deriv. 50 TU/ML Vial 0.1 ML ID (10:09)
[2022-07-30] MEDS: Meclizine HCl 25 MG Tablet PO (11:36)
--- NOTE | 2022-07-30 12:29 | NURSING ---
Manufacturing Plant Technician Note: Activity Asset; Pillo Liriano is independent in her choice of daily activities. she is not interested in group activities at this time, will continue to do social visit and encourage small group activities for social well-being. She will watch TV, read, work on word puzzles when not visiting w/family.
--- NOTE | 2022-07-30 12:31 | NURSING ---
Called and spoke with staff at Dr. Jones's office-requested orders for when to take dressing off. Asked if they could also clarify if f/u needs to be within a month of procedure or a month after DC from TCU.
[2022-07-30 12:51] VITALS: O2SAT 93
[2022-07-30 12:58] VITALS: BP 146/62; PULSE 104; RESP 14; TEMP 36.3; O2SAT 92
[2022-07-30] MEDS: Lactulose 20 GM/30 ML UDC PO (13:16)
--- NOTE | 2022-07-30 14:30 | NURSING ---
Dr. Jones's office called and let us know that we could remove the bandages now. Patient is to follow up in a month following discharge. Dressings removed. no signs of infection or drainage.
--- NOTE | 2022-07-30 16:31 | CASEMGMT ---
Social Work Presented to pt's room, introduced self and role. Pt would like to sleep and requested this worker return on Tuesday to complete the assessment. SW respected pt's wishes. MELE Muhammad
[2022-07-30 17:18] VITALS: BP 124/74; PULSE 65
[2022-07-30] MEDS: Rivaroxaban 10 MG Tablet PO (17:19)
[2022-07-30 22:00] VITALS: PULSE 105; RESP 18; O2SAT 90
[2022-07-30] MEDS: Nortriptyline 10 MG Capsule PO (22:09)
[2022-07-30] MEDS: Atorvastatin Calcium 10 MG Tablet PO (22:09)
[2022-07-30] MEDS: oxyCODONE 5 MG Tablet PO (22:23)
[2022-07-31 05:24] VITALS: BP 149/60; PULSE 93
[2022-07-31] MEDS: Fluticasone 0.05% 1 SPRAY NASAL.SRY 2 SPRAY NASAL (05:46)
[2022-07-31 05:54] VITALS: BP 149/60; PULSE 93
[2022-07-31] MEDS: Metoprolol(XL)Succ 25 MG Tablet PO ×2 (05:54→16:46)
[2022-07-31] MEDS: oxyCODONE 5 MG Tablet PO ×4 (05:54→21:20)
[2022-07-31] MEDS: cycloBENZAPRine HCl 5 MG TABLET PO ×2 (05:55→16:46)
[2022-07-31] MEDS: Venlafaxine XR 150 MG Capsule PO (05:55)
[2022-07-31 07:00] LABS: Bedside Glucose 169 mg/dL (74-106)
[2022-07-31 07:26] LABS: Anion Gap 5 (5-15); BUN 11 mg/dL (7-18); BUN/Creat Ratio 16.8 RATIO (10-20); Calcium,Total 8.5 mg/dL (8.5-10.1); Chloride 102 mmol/L (98-107); Creatinine, Serum 0.66 mg/dL (0.55-1.02); EST Glomerular Filtration Rate 95 mL/min (>60); Est Glom Filt Rate - Afr Amer 115 mL/min (>60); Estimated Creatinine Clearance 52.81 ml/min; Glucose 171 mg/dL (74-106); Potassium 3.6 mmol/L (3.5-5.1); Sodium Level 137 mmol/L (136-145)
--- NOTE | 2022-07-31 07:36 | NURSING ---
When administering medications this AM, found 1/2 potassium tablet in a med cup on patient's bedside table. Had received a 1x dose of Potassium 20mEq yesterday. Patient stated she was not able to get the other 1/2 down. Labs drawn this morning with Potassium result of 3.6
[2022-07-31] MEDS: amLODIPine 5 MG Tablet PO (08:44)
[2022-07-31] MEDS: Pioglitazone Hydrochloride 15 MG Tablet PO (08:44)
[2022-07-31] MEDS: metFORMIN HCl 500 MG Tablet PO ×2 (08:44→16:46)
[2022-07-31] MEDS: Glimepiride 2 MG Tablet PO ×2 (08:44→16:46)
[2022-07-31] MEDS: Menthol/Lanolin/Calamine/Znox 113 GM Tube 1 APPLIC TOPICAL ×2 (08:45→21:20)
[2022-07-31] MEDS: Nystatin Powder 15gm Bottle 1 APPLIC TOPICAL ×2 (08:45→21:20)
[2022-07-31 15:32] VITALS: BP 151/66; PULSE 110; RESP 18; TEMP 35.7; O2SAT 95
[2022-07-31 16:46] VITALS: PULSE 100
[2022-07-31] MEDS: Rivaroxaban 10 MG Tablet PO (16:47)
[2022-07-31] MEDS: Nortriptyline 10 MG Capsule PO (21:22)
[2022-07-31] MEDS: Atorvastatin Calcium 10 MG Tablet PO (21:22)
[2022-08-01] MEDS: cycloBENZAPRine HCl 5 MG TABLET PO ×3 (00:20→20:07)
[2022-08-01] MEDS: oxyCODONE 5 MG Tablet PO ×2 (04:16→17:59)
--- NOTE | 2022-08-01 04:19 | NURSING ---
Last recorded BM 07/26/22, discussed with patient. Pt. reports moderate BM on 07/30/22. patient A&Ox3, able to voice needs. Patient states don't bring me anything to have a BM, I have IBS, it's normal for me to go a few days without a bowel movement. No distress observed or reported. Call light in reach.
[2022-08-01 05:37] VITALS: BP 119/57; PULSE 91
[2022-08-01] MEDS: Venlafaxine XR 150 MG Capsule PO (05:37)
[2022-08-01] MEDS: Metoprolol(XL)Succ 25 MG Tablet PO ×2 (05:37→17:55)
[2022-08-01] MEDS: Fluticasone 0.05% 1 SPRAY NASAL.SRY 2 SPRAY NASAL (05:38)
[2022-08-01 06:45] LABS: Bedside Glucose 134 mg/dL (74-106)
[2022-08-01] MEDS: Glimepiride 2 MG Tablet PO ×2 (08:15→17:55)
[2022-08-01] MEDS: amLODIPine 5 MG Tablet PO (08:15)
[2022-08-01] MEDS: metFORMIN HCl 500 MG Tablet PO ×2 (08:15→17:55)
[2022-08-01] MEDS: Pioglitazone Hydrochloride 15 MG Tablet PO (08:15)
[2022-08-01] MEDS: Menthol/Lanolin/Calamine/Znox 113 GM Tube 1 APPLIC TOPICAL ×2 (08:17→20:11)
[2022-08-01] MEDS: Nystatin Powder 15gm Bottle 1 APPLIC TOPICAL ×2 (08:18→20:11)
[2022-08-01] MEDS: Meclizine HCl 25 MG Tablet PO (10:42)
[2022-08-01 16:00] VITALS: BP 136/55; PULSE 97; RESP 16; TEMP 36.2; O2SAT 90
[2022-08-01 17:55] VITALS: PULSE 96
[2022-08-01] MEDS: Rivaroxaban 10 MG Tablet PO (17:55)
[2022-08-01] MEDS: Atorvastatin Calcium 10 MG Tablet PO (20:10)
[2022-08-01] MEDS: Nortriptyline 10 MG Capsule PO (20:12)
[2022-08-01 20:31] VITALS: PULSE 101; RESP 16; O2SAT 97
[2022-08-02] MEDS: Meclizine HCl 25 MG Tablet PO ×2 (00:15→12:19)
[2022-08-02] MEDS: Fluticasone 0.05% 1 SPRAY NASAL.SRY 2 SPRAY NASAL (05:19)
[2022-08-02] MEDS: Venlafaxine XR 150 MG Capsule PO (05:19)
[2022-08-02] MEDS: cycloBENZAPRine HCl 5 MG TABLET PO ×2 (05:19→17:39)
[2022-08-02 05:20] VITALS: BP 146/59; PULSE 95
[2022-08-02] MEDS: Metoprolol(XL)Succ 25 MG Tablet PO ×2 (05:20→17:32)
[2022-08-02 05:24] VITALS: BP 146/59; PULSE 95; RESP 16
[2022-08-02] MEDS: Ondansetron ODT 4 MG Tablet PO (06:05)
[2022-08-02 06:36] LABS: Bedside Glucose 165 mg/dL (74-106)
--- NOTE | 2022-08-02 09:10 | NURSING ---
pt nauseated this am. refusing 8 an meds. zofran given this am. crackers and gingerale offered.
[2022-08-02] MEDS: Glimepiride 2 MG Tablet PO ×2 (10:10→17:31)
[2022-08-02] MEDS: Pioglitazone Hydrochloride 15 MG Tablet PO (10:10)
[2022-08-02] MEDS: amLODIPine 5 MG Tablet PO (10:13)
--- NOTE | 2022-08-02 11:29 | NS ---
Food dislikes: not too picky. Provided copy of daily specials/first choice menu w/ instructions on how to order. Also showed res how to order smaller portions d/t c/o too much food.
[2022-08-02] MEDS: metFORMIN HCl 500 MG Tablet PO ×2 (11:44→17:31)
[2022-08-02] MEDS: Menthol/Lanolin/Calamine/Znox 113 GM Tube 1 APPLIC TOPICAL ×2 (11:45→20:42)
[2022-08-02] MEDS: oxyCODONE 5 MG Tablet PO (12:51)
--- NOTE | 2022-08-02 13:59 | CHAPLAIN ---
Type of Pastoral Visit ___ Initial Visit ___ Follow-up Visit ___ On-call Visit ___ General Patient Visit ___ Spiritual Assessment ___ Family Conference ___ Bereavement ___ Rapid Response ___ Code Blue ___ Other (describe below) Pastoral Care Referral From ___ Patient ___ Family ___ Nurse ___ Physician ___ Traffic Signal Supervisor Maintenance ___ Head Stock Operator ___ Other (describe below) Sacrament/Intervention ___ Active listening ___ Anointing ___ Yarsanism ___ Bereavement ___ Communion ___ Maria D exploration ___ ___ Life review ___ Prayer ___ Reconciliation ___ Sacrament of Sick ___ Supportive presence ___ Wedding ___ Other (describe below) Pastoral Comments patient was out of room at time of visit
[2022-08-02 14:22] VITALS: BP 147/74; PULSE 104; RESP 16; TEMP 36.3; O2SAT 96
[2022-08-02 14:31] VITALS: O2SAT 94
--- NOTE | 2022-08-02 15:00 | CASEMGMT ---
Social Work Met with patient to complete initial assessment. Reintroduced self and role. Verified contacts. Discussed code status and MOLST form. pt confirmed full code. MOLST placed in Dr folder. pt wishes to complete new advanced directives to a have a different primary agent. SW to complete prior to DC as time allows. Educated to Medicare benefit. Encouraged to contact secondary insurance to ensure copay coverage. SW to continue to follow for DC planning. Chela Fong, SVP GROUP DIRECTOR COLLAR SHAPER OPERATOR
--- NOTE | 2022-08-02 15:16 | PCM.PN.DRR ---
TCU RX Drug Regimen Review Subjective: TCU Admission. 72 YOF presented to the ER with a fall. Hospitalized after fall, L1 compression fracture, underwent L1 kyphoplasty 07/28/[address] Jones. Admitted to TCU with debility for strengthening and rehabilitation. Objective: Allergies acetaminophen [From Vicodin] Allergy (Verified 07/26/22 15:50) Unknown doxycycline Allergy (Verified 07/26/22 15:50) Diarrhea hydrocodone [From Vicodin] Allergy (Verified 07/26/22 15:50) Unknown ibuprofen [From Motrin] Allergy (Verified 07/26/22 15:50) Unknown lovastatin [From Advicor] Allergy (Verified 07/26/22 15:50) Unknown niacin [From Advicor] Allergy (Verified 07/26/22 15:50) Unknown Current Medications Generic Name Dose Route Start Last Admin Trade Name Freq PRN Reason Stop Dose Admin Alprazolam 0.5 mg 07/29/22 18:18 07/30/22 22:23 Alprazolam 0.5 Mg Tablet PO 0.5 mg TID PRN PRN Administration ANXIETY Amlodipine Besylate 5 mg 07/30/22 08:00 08/02/22 10:13 Amlodipine 5 Mg Tablet PO 5 mg DAILY@0800 TIMOTEO Administration Atorvastatin Calcium 10 mg 07/29/22 22:00 08/01/22 20:10 Atorvastatin Calcium 10 Mg Tablet PO 10 mg QHS TIMOTEO Administration Calamine/Phenol 1 applic 07/30/22 10:00 08/02/22 11:45 Menthol/Lanolin/Calamine/Znox 113 Gm Tube TOPICAL 1 applic BID@1000,2200 TIMOTEO Administration Protocol Cyclobenzaprine HCl 5 mg 07/29/22 18:18 08/02/22 05:19 Cyclobenzaprine Hcl 5 Mg Tablet PO 5 mg TID PRN PRN Administration Muscle Spasm Diphenoxylate HCl/Atropine 1 tablet 07/29/22 18:18 Diphenoxylate/Atrop 1 Tablet PO 4X/DAY PRN PRN Diarrhea Fluticasone Propionate 2 spray 07/30/22 06:00 08/02/22 05:19 Fluticasone 0.05% 1 [place] Nasal.Sry NASAL 2 spray DAILY TIMOTEO Administration Glimepiride 2 mg 07/30/22 08:00 08/02/22 10:10 Glimepiride 2 Mg Tablet PO 2 mg BIDCM TIMOTEO Administration Meclizine HCl 25 mg 07/29/22 18:35 08/02/22 12:19 Meclizine Hcl 25 Mg Tablet PO 25 mg 4X/DAY PRN Administration Vertigo Metformin HCl 500 mg 07/30/22 08:00 08/02/22 11:44 Metformin Hcl 500 Mg Tablet PO 500 mg BIDCM TIM[facility]O Administration Metoprolol Succinate 25 mg 07/30/22 06:00 08/02/22 05:20 Metoprolol(Xl)Succ 25 Mg Tablet PO 25 mg BID TIMOTEO Administration Nortriptyline HCl 10 mg 07/29/22 22:00 08/01/22 20:12 Nortriptyline 10 Mg Capsule PO 10 mg QHS [facility] Administration Nystatin 1 applic 07/30/22 10:00 08/02/22 11:47 Nystatin Powder 15gm Bottle TOPICAL Not Given BID@1000,2200 [facility] Protocol Ondansetron HCl 4 mg 07/29/22 18:18 08/02/22 06:05 Ondansetron Odt 4 Mg Tablet PO 4 mg Q8H PRN PRN Administration Nausea Oxycodone HCl 5 mg 07/29/22 19:42 08/02/22 12:51 Oxycodone 5 Mg Tablet PO 5 mg Q4H PRN PRN Administration Pain Score 1-10 Pioglitazone HCl 15 mg 07/30/22 08:00 08/02/22 10:10 Pioglitazone Hydrochloride 15 Mg Tablet PO 15 mg DAILY@0800 [facility] Administration Polyethylene Glycol 17 gm 07/30/22 06:00 08/02/22 05:19 Polyethylene Glycol 3350 17 Gm Packet PO Not Given BID TIMOTEO Rivaroxaban 10 mg 07/30/22 17:00 08/01/22 17:55 Rivaroxaban 10 Mg Tablet PO 08/09/22 17:01 10 mg DINNER TIMOTEO Administration Senna/Docusate Sodium 2 tablet 07/30/22 09:00 08/02/22 05:19 Senna/Docusate Sodium 1 Tablet PO Not Given BID TIMOTEO Sodium Chloride 10 - 40 ml 07/29/22 18:28 0.9% Saline Lock 10 Ml Syringe IV UD PRN SALINE FLUSH Tuberculin PPD 0.1 ml 08/06/22 10:00 Tuberculin,Purif.Prot.Deriv. 50 Tu/Ml Vial ID 08/06/22 10:01 X1 ONE Venlafaxine HCl 150 mg 07/30/22 06:00 08/02/22 05:19 Venlafaxine Xr 150 Mg Capsule PO 150 mg DAILY TIMOTEO Administration Problem List (Last Reviewed 07/29/22 @ 19:[address] Jagdeep Buchanan MD) Diabetic neuropathy (Acute) Dizziness (Acute) Diabetes mellitus (Acute) Allergic rhinitis (Acute) Chronic diarrhea (Chronic) Anxiety (Acute) Hyperlipidemia (Acute) Compression fracture of L1 lumbar vertebra (Acute) Syncope (Acute) Debility (Acute) Vital Signs Temp Pulse Resp BP Pulse Ox O2 Del Method O2 Flow Rate 97.4 F L 104 H 16 147/74 H 96 Room Air 97 08/02/22 14:22 08/02/22 14:22 08/02/22 14:22 08/02/22 14:22 08/02/22 14:22 08/02/22 14:22 08/02/22 05:24 Oxygen Flow Rate (L/min) 97 Oxygen Delivery Method Room Air Weight: 110 kg Body Mass Index (BMI) 36.8 Sodium 137 mmol/L (136-145) 07/31/22 05:05 Potassium 3.6 mmol/L (3.5-5.1) 07/31/22 05:05 Chloride 102 mmol/L (98-107) 07/31/22 05:05 Carbon Dioxide 30.0 mmol/L (21.0-32.0) 07/31/22 05:05 Anion Gap 5 (5-15) 07/31/22 05:05 BUN 11 mg/dL (7-18) 07/31/22 05:05 Creatinine 0.66 mg/dL (0.55-1.02) 07/31/22 05:05 Est GFR (MDRD) Af Amer 115 mL/min (>60) 07/31/22 05:05 Est GFR (MDRD) Non-Af 95 mL/min (>60) 07/31/22 05:05 BUN/Creatinine Ratio 16.8 RATIO (10-20) 07/31/22 05:05 Glucose 171 mg/dL (74-106) H 07/31/22 05:05 Assessment/Plan: 1. Pain: oxycodone 5mg PO Q4H PRN pain 1-10. Resident has had 8 doses of oxycodone for pain ranging from 7-10 in the back/other. Please continue to monitor for increased pain, PRN usage, constipation and respiratory depression. 2. Bowel: Miralax 17gm PO BID, senna/docusate 2T PO BID and Lomotil 1T PO 4x/day PRN diarrhea. Resident has not used any Lomotil doses. Resident has refused 7/7 doses of both Miralax and senna/docusate. Please consider changing from scheduled to PRN. Thanks. No documented bowel movements. 3. DVT prophylaxis: rivaroxaban 10mg PO dinner thru 08/09/22. Please continue to monitor for S/S of bleeding/DVT and hemoglobin (last 10.1g/dL). 4. Hypertension: metoprolol succinate 25mg PO BID and amlodipine 5mg PO daily. Please continue to monitor BP (last 147/74), HR (last 104) and swelling. 5. Hyperlipidemia: atorvastatin 10mg PO QHS. Please consider ordering a lipid panel as there is no panel in the chart. Thanks. Please continue to monitor LFTs (last 07/26/22) and for muscle pain. 6. Diabetes mellitus II: metformin 500mg PO BIDCM, glimepiride 2mg PO BIDCM and pioglitazone 15mg PO daily. Please continue to monitor hemoglobin A1c (last 6.1% 07/27/22), glucose (last 165mg/dL), GFR (last 95 mL/min), diarrhea, S/S of hypoglycemia (BEERs medication for glimepiride). 7. Dizziness: meclizine 25mg PO 4x/day PRN vertigo. Please continue to monitor for S/S of vertigo, PRN usage, drowsiness, anticholinergic side effects (BEERs medication), dementia/delirium (BEERs medication). Resident has had 3 doses. 8. Allergic rhinitis: fluticasone 0.05% nasal spray 2 sprays nasal daily. Please continue to monitor for S/S of allergies and dry nostrils. 9. Nausea: ondansetron 4mg PO Q8H PRN nausea. Resident has had 2 doses. Please continue to monitor for nausea and PRN usage. 10. Muscle spasm: cyclobenzaprine 5mg PO TID PRN muscle spasm. Resident has had 8 doses. Please continue to monitor for PRN usage, muscle spasms, dementia/delirium (BEERs medication) and anticholinergic side effects (BEERs medication). Assessment/Plan for indications treated with psychotropic medications: 1. Anxiety: alprazolam 0.5mg PO TID PRN anxiety. Resident has had 2 doses so far. Please see physician note regarding GDR. Please continue to monitor for S/S of anxiety, PRN usage, falls/fractures (BEERs medication) and dementia/delirium (BEERs medication). 2. Depression: venlafaxine XR 150mg PO daily. Please see physician note regarding GDR. Please continue to monitor for suicidal ideation (black box warning), falls/fractures (BEERs medication) and sodium (last 137mmol/L). 3. Diabetic neuropathy: nortriptyline 10mg PO QHS. GDR not appropriate as this medication is for diabetic neuropathy. Please continue to monitor for S/S of neuropathy, suicidal ideation (black box warning), falls/fractures (BEERs medication), dementia/delirium (BEERs medication), sodium and anticholinergic side effects (BEERs medication). Medical chart and medication regimen reviewed. The following medication irregularities or issues were identified: 1. Miralax 17gm PO BID, senna/docusate 2T PO BID. Resident has refused 7/7 doses of both Miralax and senna/docusate. Please consider changing from scheduled to PRN. Thanks. 2. Resident is on several BEERs medications (alprazolam, venlafaxine, nortriptyline, oxycodone) that can contribute to falls which resident was hospitalized for. Please monitor closely. Thanks. 3. Atorvastatin 10mg PO QHS. Please consider ordering a lipid panel as there is no panel in the chart. Thanks. Date of Note:: 08/02/22
--- NOTE | 2022-08-02 15:21 | NURSING ---
Offered covid booster, education about vaccine provided. Patient refuses at this time.
[2022-08-02] MEDS: Rivaroxaban 10 MG Tablet PO (17:31)
[2022-08-02 17:32] VITALS: BP 157/67; PULSE 101
[2022-08-02] MEDS: Atorvastatin Calcium 10 MG Tablet PO (20:43)
[2022-08-02] MEDS: traMADol 50 MG Tablet PO (20:43)
[2022-08-02] MEDS: Nystatin Powder 15gm Bottle 1 APPLIC TOPICAL (20:43)
[2022-08-02] MEDS: Nortriptyline 10 MG Capsule PO (20:43)
[2022-08-03 06:09] VITALS: BP 161/81; PULSE 94; RESP 16; O2SAT 97
[2022-08-03] MEDS: Venlafaxine XR 150 MG Capsule PO (06:24)
[2022-08-03] MEDS: Fluticasone 0.05% 1 SPRAY NASAL.SRY 2 SPRAY NASAL (06:24)
[2022-08-03 06:25] VITALS: BP 161/81; PULSE 94
[2022-08-03] MEDS: Metoprolol(XL)Succ 25 MG Tablet PO ×2 (06:25→17:07)
[2022-08-03] MEDS: traMADol 50 MG Tablet PO ×3 (06:32→20:20)
[2022-08-03 07:30] LABS: Bedside Glucose 162 mg/dL (74-106)
[2022-08-03] MEDS: Glimepiride 2 MG Tablet PO ×2 (08:46→17:06)
[2022-08-03] MEDS: Pioglitazone Hydrochloride 15 MG Tablet PO (08:46)
[2022-08-03] MEDS: metFORMIN HCl 500 MG Tablet PO ×2 (08:46→17:06)
[2022-08-03] MEDS: Senna/Docusate Sodium 1 Tablet 2 TABLET PO ×2 (08:49→17:06)
[2022-08-03] MEDS: amLODIPine 5 MG Tablet PO (08:49)
[2022-08-03 08:54] VITALS: BP 156/75; PULSE 98
[2022-08-03] MEDS: cycloBENZAPRine HCl 5 MG TABLET PO ×2 (11:17→20:20)
[2022-08-03 12:56] VITALS: BMI 36.1
--- NOTE | 2022-08-03 12:59 | CHAPLAIN ---
Type of Pastoral Visit _x__ Initial Visit ___ Follow-up Visit ___ On-call Visit ___ General Patient Visit ___ Spiritual Assessment ___ Family Conference ___ Bereavement ___ Rapid Response ___ Code Blue ___ Other (describe below) Pastoral Care Referral From _x__ Patient ___ Family ___ Nurse ___ Physician ___ Etymology Teacher ___ Window And Siding Craftsman ___ Other (describe below) Sacrament/Intervention _x__ Active listening ___ Anointing ___ Rastafarian ___ Bereavement ___ Communion ___ Maria D exploration ___ ___ Life review _x__ Prayer ___ Reconciliation ___ Sacrament of Sick _x__ Supportive presence ___ Wedding ___ Other (describe below) Pastoral Comments patient is welcoming; pt was seen when in [facility]; pt reports updates on her surgery and recovery; pt is hopeful but also concerned about decisions left to insurance company; pt lives alone and wants to be recovered fully before going home; pt welcomes presence and prayer; pt welcomes future visits
[2022-08-03 13:44] VITALS: BP 116/55; PULSE 111; RESP 18; TEMP 36.4; O2SAT 97
[2022-08-03 17:07] VITALS: PULSE 101
[2022-08-03] MEDS: Polyethylene Glycol 3350 17 GM PACKET PO (17:07)
[2022-08-03] MEDS: Rivaroxaban 10 MG Tablet PO (17:07)
[2022-08-03] MEDS: Atorvastatin Calcium 10 MG Tablet PO (20:14)
[2022-08-03] MEDS: Menthol/Lanolin/Calamine/Znox 113 GM Tube 1 APPLIC TOPICAL (20:14)
[2022-08-03] MEDS: Nystatin Powder 15gm Bottle 1 APPLIC TOPICAL (20:14)
[2022-08-03] MEDS: Nortriptyline 10 MG Capsule PO (20:15)
[2022-08-03] MEDS: Meclizine HCl 25 MG Tablet PO (20:20)
[2022-08-03 20:50] VITALS: RESP 16
[2022-08-04] MEDS: Fluticasone 0.05% 1 SPRAY NASAL.SRY 2 SPRAY NASAL (04:59)
[2022-08-04] MEDS: Venlafaxine XR 150 MG Capsule PO (04:59)
[2022-08-04 05:00] VITALS: BP 139/72; PULSE 91
[2022-08-04] MEDS: Metoprolol(XL)Succ 25 MG Tablet PO ×2 (05:00→17:42)
[2022-08-04 06:45] LABS: Bedside Glucose 178 mg/dL (74-106)
[2022-08-04] MEDS: Pioglitazone Hydrochloride 15 MG Tablet PO (08:29)
[2022-08-04] MEDS: metFORMIN HCl 500 MG Tablet PO ×2 (08:29→17:41)
[2022-08-04] MEDS: Glimepiride 2 MG Tablet PO ×2 (08:30→17:43)
[2022-08-04] MEDS: traMADol 50 MG Tablet PO ×2 (08:38→22:32)
[2022-08-04] MEDS: amLODIPine 5 MG Tablet PO (08:38)
[2022-08-04] MEDS: Menthol/Lanolin/Calamine/Znox 113 GM Tube 1 APPLIC TOPICAL ×2 (08:39→22:34)
[2022-08-04] MEDS: Nystatin Powder 15gm Bottle 1 APPLIC TOPICAL ×2 (08:40→22:33)
[2022-08-04] MEDS: cycloBENZAPRine HCl 5 MG TABLET PO ×2 (08:41→17:49)
--- NOTE | 2022-08-04 09:05 | CASEMGMT ---
Social Work IDT met with patient and two children via conference call for care plan meeting. Discussed patient's progress in PT/OT/SN. Educated to Medicare benefit. Encouraged to contact secondary insurance to ensure copay coverage. Pt's goal is to return home alone. Pt must return to PLOF to return home alone safely. Both children work multimedia coordinator and cannot assist consistently. Discussed further therapy goals before DC such as a floor transfer and steps, and getting a bed rail for home. SW provided resources for medical alert button/watches, extended tub bench, and reminded of the MOW resources, grocery milk pickup driver or delivery. Family appreciative. SW to coordinate any DC needs. Will continue to follow. MELE MuhammadW
[2022-08-04] MEDS: ALPRAZolam 0.5 MG Tablet PO (11:16)
[2022-08-04] MEDS: Meclizine HCl 25 MG Tablet PO (11:16)
[2022-08-04 14:42] VITALS: BP 125/59; PULSE 95; RESP 18; TEMP 35.7; O2SAT 96
--- NOTE | 2022-08-04 15:56 | CASEMGMT ---
Social Work BIMS () and PHQ-9 (08/14) completed for MDS assessment. -- Received call after POC mtg from son wanting to provide further information privately with this worker. Son explained when pt's dtr was in pt's home getting clothes to bring in, that dtr found eight full bottles of Xanax pills, (totaling about 720 pills) as the script writes for 3x/day as needed for 30 days. Son reports the pt admitted to the dtr, when dtr questioned pt about the pills, that pt was selling the pills. Son states the dtr took the pills out of the house and contacted the PCP. PCP advised to properly dispose of the pills and the Dr discontinued the pills from pt's med list. SW inquired about possible chances of other misuse of pills such as intention to harm/kill herself. Son reports to no known history of intent/thoughts/attempts, but noted the pt allegedly laid on the floor of her home when she fell for about 12+ hours without calling for her help and pt had her phone. Son unsure about pt's well-being prior. Son stated at this time, the patient does not know the dtr took the pills, told the Dr, and prefers to keep it that way, if possible. SW thanked son for the information and explained this worker will notify the Dr and the Dr will make the decision on use of the medication while in TCU and if he speaks to the patient about it. Explained nursing will be updated to ensure pt is swallowing her pills in the staff's presence. SW to speak further with pt to explore well-being and use of the medication. Son appreciative. -- SW consulted with visual merchandising director Management about situation. Concluded that this worker will speak with pt, readdress PHQ-9 and further explore suicidal thoughts, use of the medication, anxiety, etc. -- SW met with pt and readministered the PHQ-9. Pt agreeable. Pt was more forthcoming with information this time, the score increased to 09/14, when answering yes to being more fidgety at times. SW explored that response. Pt explains it is when she gets stressed, she gets fidgety. SW inquired about how to cope at those times. Pt reports to reading or taking her PRN medication, Xanax. SW discussed pt's anxiety and possible interventions to help lessen the anxious episodes or use of the Xanax. Pt reports to have gone to [facility] several years ago until her counselor relocated, and would be open to returning. Pt denied wanting to adjust medications just because my daughter wants me to. I want to do what the Dr says. SW acknowledged and offer to make an appt for counseling at time of DC. Pt to consider it. SW explored further conversation around the Xanax. Pt explained she doesn't want to take it and tries not to take it, but does on occasion. Pt states she just took it for the first time this date during her stay, d/t the muscle spasms, and it was advised by the nurse that it could assist with relief. Pt states she has wanted to decrease the number of medications she is taking for awhile now but reports her PCP has reasons for all the medication prescribed. Pt began discussing her relationship with her dtr, explaining currently it is strained and their trust is broken. SW explored further. Pt explained when pt asked the dtr to get her clothes to bring into TCU, the dtr went into the pt's house and began looking around, when she found her Xanax pill bottle. Pt reports the dtr is not happy with the type and amount of medications pt is taking, and took it upon herself to call the pt's PCP. Pt expresses she does not appreciate the dtr going behind my back to call the Dr and have conversations about her medications without the pt. SW acknowledged that pt would like a voice and be apart of those conversations. Pt confirmed, and stated this is the second time this has happened. Pt states three strikes and you're out and I'm not going to have her take another chance. I don't trust her at my house anymore. SW inquired about the unused medications if pt states she is not taking the Xanax as much as the prescription allows, even though it is PRN. Pt states she takes her medications as prescribed, 3x/day PRN and the script is for 30 days; if the pt doesn't need the medication at the next month, the pt does not refill the prescription. SW explored potential reasons for dtr being concerned about the medication. Pt denies to misusing or abusing any medications. SW explored suicidal thoughts/attempts/intents in the last two weeks, last month, last five years and a lifetime. Pt denied for all timeframes. Pt reports to having a high school boyfriend killed in a car accident and wanting to at that time, but that was r/t to the emotions from his loss. Pt states she had no plans at that time, and has not thought about hurting herself since. Pt explained she could understand why her dtr would be concerned if she has a history of SI or abuse of medications, but pt denies. JUAN ANTONIO inquired about relationship with son. Pt stated currently 05/28. Pt expressed frustration that son is not letting pt come visit him and the two granddaughters recently, since pt fell twice at their split-level home. Son wants pt to complete physical therapy to regain strength prior to visiting as his home as a lot of steps. However, as pt continued explaining, the relationship was strained prior to the falls and not getting along with the son's since the grandchildren were born. SW inquired about the fall leading to the admission. Pt confirmed she had fallen, could not get up d/t the muscle spasms, could not make it to her bedroom, and laid on the hallway floor for the night. Pt stated she did have her cell phone but the phone was not working, it could not call or text, so she could not call for help, The next morning, the tried her phone again and could only FaceTime the son, in which help was called to go to the hospital. SW thanked pt for sharing information with this worker and offered ongoing supportive visits, if needed. -- JUAN ANTONIO entered nonorder for nursing communication to ensure pt swallows pills prior to exiting room to ensure no pocketing. -- JUAN ANTONIO received call from dtr with more information about Xanax situation. Dtr stated she spoke with the pt and the pt knows the dtr was instructed to dispose of the medication, at which time, the pt reportedly told the dtr if she did that the pt would no longer talk to her. Dtr expressed being conflicted with what to do and is sadden the pt would risk losing a relationship with her dtr over medications. Dtr explained she found out about the pills when the pt asked the dtr to go to the pt's house to retrieve the pills to bring to the pt in TCU to sell to her a produce buyer. When dtr refused to do so, the pt said the produce buyer would just get access into the pt's home and retrieve the medications. Dtr stated when the pt is due for a refill, allegedly the pt retrieves that refill. Dtr confirmed at this time she has not removed the stockpile of pills from the pt's home and unsure how to proceed. SW acknowledge dtr's feelings. Assured dtr currently pt is safe and the medications are being controlled by the staff. SW suggested scheduling an appt with pt, dtr and PCP after DC to all be included in this conversation around the Xanax and how to proceed. Dtr expressed having several other personal things to worry about at the time and this is causing her extra stress. SW provided emotional support and reassured her the pt is safe and this does not need dealt with today. There was a lot of information that was exposed today and to allow time to process. SW to discuss with Senior Software Systems Engineer about this information and how to proceed with the disposal of medications. Dtr expressed appreciation. -- Verbal communication with Dr Buchanan and to discontinue current Xanax order. SW left voicemail with Senior Software Systems Engineer to follow up. Will continue to follow. Chela Fong, SUPERVISOR CELLARS PUNCHING MACHINE OPERATOR
[2022-08-04] MEDS: Senna/Docusate Sodium 1 Tablet 2 TABLET PO (17:41)
[2022-08-04 17:42] VITALS: PULSE 95
[2022-08-04] MEDS: Rivaroxaban 10 MG Tablet PO (17:42)
[2022-08-04] MEDS: Atorvastatin Calcium 10 MG Tablet PO (22:34)
[2022-08-04] MEDS: Nortriptyline 10 MG Capsule PO (22:35)
[2022-08-05 06:31] VITALS: PULSE 92
[2022-08-05] MEDS: Venlafaxine XR 150 MG Capsule PO (06:31)
[2022-08-05] MEDS: Fluticasone 0.05% 1 SPRAY NASAL.SRY 2 SPRAY NASAL (06:31)
[2022-08-05] MEDS: Metoprolol(XL)Succ 25 MG Tablet PO ×2 (06:31→17:47)
[2022-08-05 06:32] VITALS: BP 142/74; PULSE 92
[2022-08-05 06:40] LABS: Bedside Glucose 142 mg/dL (74-106)
[2022-08-05] MEDS: Pioglitazone Hydrochloride 15 MG Tablet PO (08:51)
[2022-08-05] MEDS: Glimepiride 2 MG Tablet PO ×2 (08:51→17:45)
[2022-08-05] MEDS: metFORMIN HCl 500 MG Tablet PO ×2 (08:51→17:45)
[2022-08-05] MEDS: traMADol 50 MG Tablet PO ×2 (08:52→17:53)
[2022-08-05] MEDS: amLODIPine 5 MG Tablet PO (08:55)
[2022-08-05] MEDS: oxyCODONE 5 MG Tablet PO (11:09)
[2022-08-05] MEDS: Menthol/Lanolin/Calamine/Znox 113 GM Tube 1 APPLIC TOPICAL ×2 (11:10→21:44)
[2022-08-05] MEDS: Nystatin Powder 15gm Bottle 1 APPLIC TOPICAL ×2 (11:11→21:44)
[2022-08-05] MEDS: cycloBENZAPRine HCl 5 MG TABLET PO (14:45)
[2022-08-05 16:00] VITALS: BP 118/77; PULSE 95; RESP 16; TEMP 36.1; O2SAT 95
--- NOTE | 2022-08-05 16:05 | CASEMGMT ---
Social Work SW collaborated with [employer] Weaver of . Both in agreement to contact [facility] HRO for further advisement. SW met with HRO Zelalem, and updated him on the situation. HRO requested to speak with the pt to corroborate story. This worker and HRO presented to pt's room. HRO questioned pt on the use of medication, the amount of stockpiled medication and the use of stockpile. Pt denied selling of the medication but did admit to giving it to a friend in need but was not named Shaista. HRO educated to risks of keeping medications and seriousness of selling medication; suggested for dtr or son to retrieve medication from pt's home and properly dispose of it at the [employer]ios[employer] Specialist's office. Pt agreeable to dtr completing the task and requested officers not be present d/t privacy of her home. HRO agreed and will notify dtr. No further action needs to be taken at this time. SW and HRO phoned dtr to update on above. After some reassurance about dtr's concern with pt/dtr relationship, dtr agreed to dispose of the medication. Dtr noted that son did drive in from out of town to relocate the medication in the pt's house in the case someone would come into the home and try to retrieve it. Dtr plans to dispose of it the following day and will notify this worker when the task is completed. Dtr expressed appreciation of this worker and HRO. SW to continue to follow. Chela Fong, MELE DUPONT
[2022-08-05] MEDS: Rivaroxaban 10 MG Tablet PO (17:45)
[2022-08-05 17:47] VITALS: BP 128/64; PULSE 68
[2022-08-05 21:35] VITALS: PULSE 92; RESP 18; O2SAT 98
[2022-08-05] MEDS: Nortriptyline 10 MG Capsule PO (21:46)
[2022-08-05] MEDS: Atorvastatin Calcium 10 MG Tablet PO (21:47)
[2022-08-06] MEDS: traMADol 50 MG Tablet PO (03:39)
[2022-08-06] MEDS: Fluticasone 0.05% 1 SPRAY NASAL.SRY 2 SPRAY NASAL (05:17)
[2022-08-06] MEDS: Venlafaxine XR 150 MG Capsule PO (05:18)
[2022-08-06 05:19] VITALS: BP 139/67; PULSE 86
[2022-08-06] MEDS: Metoprolol(XL)Succ 25 MG Tablet PO ×2 (05:19→17:59)
[2022-08-06 05:50] LABS: Absolute Neutrophil Count 2.3 X10^3/uL (2.0-7.7); Basophil# 0.03 X10^3/uL; Basophil% 0.7 % (0-1); Eosinophil# 0.13 X10^3/uL; Eosinophils% 2.9 % (0-5); Hematocrit 32.1 % (37-47); Hemoglobin 10.2 g/dL (12.0-15.0); Mean Corp Hgb Conc 31.8 g/dL (32-36); Mean Corpuscular Hgb 27.8 pg (27.0-32.0); Mean Corpuscular Volume 87.5 fL (81-99); Mean Platelet Vol. 10.7 fl (6.2-12.0); Monocyte# 0.33 X10^3/uL; Monocyte% 7.4 % (0-10); NRBC Flagged by Analyzer 0 % (0-5); Neutrophil # 2.34 X10^3/uL (2.7-7.7); Neutrophil % 52.6 % (47-70); Platelet Count 220 K/mm3 (150-450); RBC Distribution Width CV 14.6 % (11.6-14.6); RBC Distribution Width SD 46.5 fl (35.1-43.9); Red Blood Count 3.67 M/mm3 (4.2-5.4); White Blood Count 4.5 K/mm3 (4.4-11.0)
[2022-08-06 06:21] LABS: Anion Gap 4 (5-15); BUN 20 mg/dL (7-18); BUN/Creat Ratio 25.8 RATIO (10-20); Calcium,Total 8.5 mg/dL (8.5-10.1); Chloride 103 mmol/L (98-107); Creatinine, Serum 0.78 mg/dL (0.55-1.02); EST Glomerular Filtration Rate 78 mL/min (>60); Est Glom Filt Rate - Afr Amer 94 mL/min (>60); Estimated Creatinine Clearance 52.81 ml/min; Glucose 167 mg/dL (74-106); Potassium 4.1 mmol/L (3.5-5.1); Sodium Level 137 mmol/L (136-145)
[2022-08-06 06:26] LABS: Bedside Glucose 148 mg/dL (74-106)
[2022-08-06 07:52] VITALS: O2SAT 92
[2022-08-06] MEDS: Ondansetron ODT 4 MG Tablet PO (08:50)
[2022-08-06] MEDS: amLODIPine 5 MG Tablet PO (09:01)
[2022-08-06] MEDS: Menthol/Lanolin/Calamine/Znox 113 GM Tube 1 APPLIC TOPICAL ×2 (09:02→22:45)
[2022-08-06] MEDS: Nystatin Powder 15gm Bottle 1 APPLIC TOPICAL ×2 (09:03→22:45)
[2022-08-06] MEDS: cycloBENZAPRine HCl 5 MG TABLET PO ×2 (09:05→17:59)
[2022-08-06 11:05] VITALS: PULSE 90; RESP 18; O2SAT 99
[2022-08-06] MEDS: Pioglitazone Hydrochloride 15 MG Tablet PO (11:49)
[2022-08-06] MEDS: metFORMIN HCl 500 MG Tablet PO ×2 (11:50→18:02)
[2022-08-06] MEDS: Glimepiride 2 MG Tablet PO ×2 (11:50→18:02)
[2022-08-06] MEDS: Tuberculin,Purif.prot.deriv. 50 TU/ML Vial 0.1 ML ID (11:54)
[2022-08-06 14:23] VITALS: BP 127/55; PULSE 94; RESP 17; TEMP 37.1; O2SAT 96
--- NOTE | 2022-08-06 14:44 | NURSING ---
dr avila notified of consult order, won't be in until Tuesday per his office
[2022-08-06 17:59] VITALS: BP 139/76; PULSE 94
[2022-08-06] MEDS: Meclizine HCl 25 MG Tablet PO (17:59)
[2022-08-06] MEDS: oxyCODONE 5 MG Tablet PO (17:59)
[2022-08-06] MEDS: Senna/Docusate Sodium 1 Tablet 2 TABLET PO (18:02)
[2022-08-06] MEDS: Rivaroxaban 10 MG Tablet PO (18:02)
[2022-08-06] MEDS: Atorvastatin Calcium 10 MG Tablet PO (22:44)
[2022-08-06] MEDS: Nortriptyline 10 MG Capsule PO (22:44)
[2022-08-07 06:11] VITALS: BP 150/66; PULSE 89
[2022-08-07] MEDS: Venlafaxine XR 150 MG Capsule PO (06:11)
[2022-08-07] MEDS: Metoprolol(XL)Succ 25 MG Tablet PO ×2 (06:11→18:19)
[2022-08-07] MEDS: Fluticasone 0.05% 1 SPRAY NASAL.SRY 2 SPRAY NASAL (06:12)
[2022-08-07] MEDS: Meclizine HCl 25 MG Tablet PO ×2 (06:14→16:19)
[2022-08-07] MEDS: cycloBENZAPRine HCl 5 MG TABLET PO ×2 (06:17→18:19)
[2022-08-07 06:40] LABS: Bedside Glucose 150 mg/dL (74-106)
[2022-08-07] MEDS: Ondansetron ODT 4 MG Tablet PO (09:01)
[2022-08-07] MEDS: metFORMIN HCl 500 MG Tablet PO ×2 (09:03→16:18)
[2022-08-07] MEDS: Glimepiride 2 MG Tablet PO ×2 (09:03→16:19)
[2022-08-07] MEDS: Pioglitazone Hydrochloride 15 MG Tablet PO (09:04)
[2022-08-07] MEDS: Nystatin Powder 15gm Bottle 1 APPLIC TOPICAL ×2 (09:07→21:58)
[2022-08-07] MEDS: Menthol/Lanolin/Calamine/Znox 113 GM Tube 1 APPLIC TOPICAL ×2 (09:08→21:58)
[2022-08-07] MEDS: amLODIPine 5 MG Tablet PO (09:36)
[2022-08-07] MEDS: oxyCODONE 5 MG Tablet PO ×2 (12:11→22:03)
[2022-08-07 15:58] VITALS: BP 131/84; PULSE 90; RESP 16; TEMP 37; O2SAT 97
[2022-08-07] MEDS: Rivaroxaban 10 MG Tablet PO (16:19)
[2022-08-07 18:19] VITALS: BP 131/84; PULSE 90
[2022-08-07] MEDS: Nortriptyline 10 MG Capsule PO (21:57)
[2022-08-07] MEDS: Atorvastatin Calcium 10 MG Tablet PO (21:58)
[2022-08-07 22:00] VITALS: PULSE 91; RESP 18; O2SAT 97
[2022-08-08 06:51] LABS: Bedside Glucose 171 mg/dL (74-106)
[2022-08-08 06:59] VITALS: BP 128/51; PULSE 86
[2022-08-08] MEDS: Venlafaxine XR 150 MG Capsule PO (06:59)
[2022-08-08] MEDS: Metoprolol(XL)Succ 25 MG Tablet PO ×2 (06:59→16:35)
[2022-08-08] MEDS: Fluticasone 0.05% 1 SPRAY NASAL.SRY 2 SPRAY NASAL (07:01)
[2022-08-08] MEDS: traMADol 50 MG Tablet PO (08:19)
[2022-08-08] MEDS: Pioglitazone Hydrochloride 15 MG Tablet PO (08:20)
[2022-08-08] MEDS: metFORMIN HCl 500 MG Tablet PO ×2 (08:21→16:37)
[2022-08-08] MEDS: Glimepiride 2 MG Tablet PO ×2 (08:25→16:35)
[2022-08-08] MEDS: amLODIPine 5 MG Tablet PO (08:27)
[2022-08-08] MEDS: Menthol/Lanolin/Calamine/Znox 113 GM Tube 1 APPLIC TOPICAL ×2 (08:28→19:58)
[2022-08-08] MEDS: Nystatin Powder 15gm Bottle 1 APPLIC TOPICAL ×2 (08:28→19:57)
[2022-08-08] MEDS: cycloBENZAPRine HCl 5 MG TABLET PO ×2 (11:59→19:52)
[2022-08-08 15:04] VITALS: BP 134/54; PULSE 92; RESP 18; TEMP 36.1; O2SAT 95
[2022-08-08] MEDS: oxyCODONE 5 MG Tablet PO ×2 (16:34→22:11)
[2022-08-08 16:35] VITALS: PULSE 92
[2022-08-08] MEDS: Rivaroxaban 10 MG Tablet PO (16:37)
[2022-08-08] MEDS: Ondansetron ODT 4 MG Tablet PO (19:52)
[2022-08-08] MEDS: Atorvastatin Calcium 10 MG Tablet PO (19:53)
[2022-08-08] MEDS: Nortriptyline 10 MG Capsule PO (19:53)
[2022-08-09] MEDS: oxyCODONE 5 MG Tablet PO ×2 (06:14→11:41)
[2022-08-09 06:15] VITALS: BP 144/82; PULSE 98
[2022-08-09] MEDS: cycloBENZAPRine HCl 5 MG TABLET PO ×2 (06:15→11:41)
[2022-08-09] MEDS: Metoprolol(XL)Succ 25 MG Tablet PO ×2 (06:15→17:10)
[2022-08-09] MEDS: Venlafaxine XR 150 MG Capsule PO (06:15)
[2022-08-09] MEDS: Fluticasone 0.05% 1 SPRAY NASAL.SRY 2 SPRAY NASAL (06:17)
[2022-08-09 06:50] LABS: Bedside Glucose 179 mg/dL (74-106)
[2022-08-09] MEDS: metFORMIN HCl 500 MG Tablet PO ×2 (08:52→17:10)
[2022-08-09] MEDS: amLODIPine 5 MG Tablet PO (08:52)
[2022-08-09] MEDS: Glimepiride 2 MG Tablet PO ×2 (08:52→17:10)
[2022-08-09] MEDS: Pioglitazone Hydrochloride 15 MG Tablet PO (08:52)
[2022-08-09] MEDS: Menthol/Lanolin/Calamine/Znox 113 GM Tube 1 APPLIC TOPICAL ×2 (08:53→21:18)
[2022-08-09] MEDS: Nystatin Powder 15gm Bottle 1 APPLIC TOPICAL ×2 (08:54→21:19)
--- NOTE | 2022-08-09 11:16 | MDS.RN ---
Information for the mds was obtained from review of the clinical record, interview of resident, staff, and direct observation of resident's care.
[2022-08-09] MEDS: Ondansetron ODT 4 MG Tablet PO (14:26)
[2022-08-09 16:00] VITALS: BP 116/71; PULSE 100; RESP 16; TEMP 35.9; O2SAT 91
[2022-08-09 17:10] VITALS: PULSE 94
[2022-08-09] MEDS: Rivaroxaban 10 MG Tablet PO (17:10)
[2022-08-09] MEDS: Senna/Docusate Sodium 1 Tablet 2 TABLET PO (17:10)
--- NOTE | 2022-08-09 18:26 | NURSING ---
dr avila seen pt, new order for Cyclobenzaprine to 10mg BID PRN, keep oxyir as ordered.
[2022-08-09] MEDS: Atorvastatin Calcium 10 MG Tablet PO (21:18)
[2022-08-09] MEDS: Nortriptyline 10 MG Capsule PO (21:18)
[2022-08-09] MEDS: cycloBENZAPRine HCl 5 MG TABLET 10 MG PO (21:24)
[2022-08-09] MEDS: traMADol 50 MG Tablet PO (21:25)
[2022-08-10 05:25] VITALS: BP 131/67; PULSE 89
[2022-08-10] MEDS: Venlafaxine XR 150 MG Capsule PO (05:25)
[2022-08-10] MEDS: Metoprolol(XL)Succ 25 MG Tablet PO ×2 (05:25→17:44)
[2022-08-10] MEDS: Fluticasone 0.05% 1 SPRAY NASAL.SRY 2 SPRAY NASAL (05:26)
[2022-08-10] MEDS: traMADol 50 MG Tablet PO ×2 (05:37→14:30)
[2022-08-10] MEDS: cycloBENZAPRine HCl 5 MG TABLET 10 MG PO ×2 (05:38→17:41)
[2022-08-10 06:41] LABS: Bedside Glucose 166 mg/dL (74-106)
[2022-08-10] MEDS: metFORMIN HCl 500 MG Tablet PO ×2 (07:55→17:44)
[2022-08-10] MEDS: Glimepiride 2 MG Tablet PO ×2 (07:55→17:46)
[2022-08-10] MEDS: Pioglitazone Hydrochloride 15 MG Tablet PO (07:56)
[2022-08-10] MEDS: Menthol/Lanolin/Calamine/Znox 113 GM Tube 1 APPLIC TOPICAL ×2 (07:57→22:45)
[2022-08-10] MEDS: Nystatin Powder 15gm Bottle 1 APPLIC TOPICAL ×2 (07:57→22:46)
[2022-08-10] MEDS: amLODIPine 5 MG Tablet PO (07:59)
[2022-08-10] MEDS: oxyCODONE 5 MG Tablet PO ×2 (11:33→17:40)
[2022-08-10 14:37] VITALS: BP 117/50; PULSE 96; RESP 20; TEMP 35.8; O2SAT 96
--- NOTE | 2022-08-10 15:12 | CASEMGMT ---
Social Work Pt requested to speak with this worker. SW spoke with pt and answered questions about insurance and DC. Pt stated dtr was asking questions and wanted to do something. SW offered for dtr to coordinate MOW and medical alert button in preparation for DC home in about two weeks. SW educated pt to IDT recommending setting DC in about two weeks. pt reports dtr will be busy with granddaughters graduation and then going on vacation so dtr won't care when pt gets discharged. SW offered to call dtr to discuss but pt denied, stating she will talk to dtr this evening. SW offered for dtr to contact this worker with any questions. Reviewed needs at DC: FWW, hip kit, bed rail. SW to coordinate FWW if family can purchase other items. Pt repeated information with understanding. SW confirmed with pt she would still like to complete advanced directives naming dtr and son with equal HCPOA. Chela Fong, URBAN RENEWAL MANAGER CLAY TEMPERER
[2022-08-10 16:13] VITALS: BMI 36.9
--- NOTE | 2022-08-10 16:32 | CASEMGMT ---
Social Work Completed advanced directives with pt. Original and copy provided to pt. Copies placed on chart. Pt also asked for copies of resources previously provided as pt misplaced them. SW provided home delivered meals, medical alert, [place], nonskilled SEED CLEANING MACHINE OPERATOR resources. Chela Fong, TRAFFIC RATE ANALYST BURLAP BAG SEWER
[2022-08-10 17:44] VITALS: PULSE 96
[2022-08-10] MEDS: Senna/Docusate Sodium 1 Tablet 2 TABLET PO (17:44)
[2022-08-10] MEDS: Nortriptyline 10 MG Capsule PO (22:44)
[2022-08-10] MEDS: Atorvastatin Calcium 10 MG Tablet PO (22:44)
[2022-08-11 06:36] LABS: Bedside Glucose 139 mg/dL (74-106)
[2022-08-11 06:57] VITALS: BP 170/71; PULSE 90
[2022-08-11] MEDS: Metoprolol(XL)Succ 25 MG Tablet PO ×2 (06:57→17:57)
[2022-08-11] MEDS: Venlafaxine XR 150 MG Capsule PO (06:57)
[2022-08-11] MEDS: Fluticasone 0.05% 1 SPRAY NASAL.SRY 2 SPRAY NASAL (06:57)
[2022-08-11] MEDS: Pioglitazone Hydrochloride 15 MG Tablet PO (08:28)
[2022-08-11] MEDS: Glimepiride 2 MG Tablet PO ×2 (08:28→17:57)
[2022-08-11] MEDS: metFORMIN HCl 500 MG Tablet PO ×2 (08:28→17:57)
[2022-08-11] MEDS: amLODIPine 5 MG Tablet PO (08:31)
[2022-08-11] MEDS: cycloBENZAPRine HCl 5 MG TABLET 10 MG PO (09:39)
[2022-08-11] MEDS: traMADol 50 MG Tablet PO ×2 (09:42→17:56)
[2022-08-11 14:36] VITALS: BP 152/57; PULSE 95; RESP 16; TEMP 35.7; O2SAT 98
[2022-08-11] MEDS: oxyCODONE 5 MG Tablet PO (14:36)
[2022-08-11 17:57] VITALS: BP 140/60; PULSE 96
[2022-08-11 20:35] VITALS: PULSE 80; RESP 16; O2SAT 94
[2022-08-11] MEDS: Nortriptyline 10 MG Capsule PO (20:44)
[2022-08-11] MEDS: Nystatin Powder 15gm Bottle 1 APPLIC TOPICAL (20:44)
[2022-08-11] MEDS: Atorvastatin Calcium 10 MG Tablet PO (20:44)
[2022-08-11] MEDS: Menthol/Lanolin/Calamine/Znox 113 GM Tube 1 APPLIC TOPICAL (20:44)
[2022-08-12 05:57] VITALS: BP 147/69; PULSE 88
[2022-08-12] MEDS: Metoprolol(XL)Succ 25 MG Tablet PO ×2 (05:57→16:54)
[2022-08-12] MEDS: Fluticasone 0.05% 1 SPRAY NASAL.SRY 2 SPRAY NASAL (05:58)
[2022-08-12] MEDS: Venlafaxine XR 150 MG Capsule PO (05:58)
[2022-08-12 06:25] LABS: Bedside Glucose 167 mg/dL (74-106)
[2022-08-12 07:09] VITALS: BP 141/69; PULSE 88
[2022-08-12] MEDS: Pioglitazone Hydrochloride 15 MG Tablet PO (07:33)
[2022-08-12] MEDS: Glimepiride 2 MG Tablet PO ×2 (07:33→16:55)
[2022-08-12] MEDS: metFORMIN HCl 500 MG Tablet PO ×2 (07:33→16:55)
[2022-08-12] MEDS: amLODIPine 5 MG Tablet PO (07:36)
[2022-08-12] MEDS: Menthol/Lanolin/Calamine/Znox 113 GM Tube 1 APPLIC TOPICAL ×2 (09:10→20:05)
[2022-08-12] MEDS: Nystatin Powder 15gm Bottle 1 APPLIC TOPICAL (09:10)
[2022-08-12] MEDS: cycloBENZAPRine HCl 10 MG Tablet PO (09:13)
[2022-08-12] MEDS: oxyCODONE 5 MG Tablet PO ×3 (14:27→23:04)
[2022-08-12 16:00] VITALS: BP 117/69; PULSE 78; RESP 16; TEMP 36.1; O2SAT 99
[2022-08-12 16:54] VITALS: PULSE 78
[2022-08-12] MEDS: traMADol 50 MG Tablet PO (16:58)
[2022-08-12] MEDS: Atorvastatin Calcium 10 MG Tablet PO (20:02)
[2022-08-12] MEDS: Nortriptyline 10 MG Capsule PO (20:03)
[2022-08-13 05:49] VITALS: BP 152/58; PULSE 86
[2022-08-13] MEDS: oxyCODONE 5 MG Tablet PO ×4 (05:49→22:56)
[2022-08-13] MEDS: Metoprolol(XL)Succ 25 MG Tablet PO ×2 (05:49→17:01)
[2022-08-13] MEDS: Venlafaxine XR 150 MG Capsule PO (05:49)
[2022-08-13] MEDS: Fluticasone 0.05% 1 SPRAY NASAL.SRY 2 SPRAY NASAL (05:50)
[2022-08-13 06:26] LABS: Absolute Lymphocyte Count 1.22 X10^3/uL (0.83-4.51); Absolute Neutrophil Count 1.9 X10^3/uL (2.0-7.7); Basophil# 0.02 X10^3/uL; Basophil% 0.6 % (0-1); Eosinophil# 0.13 X10^3/uL; Eosinophils% 3.6 % (0-5); Hematocrit 31.6 % (37-47); Hemoglobin 10.1 g/dL (12.0-15.0); Lymphocyte # 1.22 X10^3/ul (0.83-4.51); Lymphocyte % 33.8 % (19-41); Mean Corpuscular Hgb 28.5 pg (27.0-32.0); Mean Platelet Vol. 10.9 fl (6.2-12.0); Monocyte# 0.32 X10^3/uL; Monocyte% 8.9 % (0-10); NRBC Flagged by Analyzer 0 % (0-5); Neutrophil % 52.5 % (47-70); Platelet Count 202 K/mm3 (150-450); RBC Distribution Width CV 15.5 % (11.6-14.6); RBC Distribution Width SD 50.4 fl (35.1-43.9); Red Blood Count 3.55 M/mm3 (4.2-5.4); White Blood Count 3.6 K/mm3 (4.4-11.0)
[2022-08-13 06:35] LABS: Bedside Glucose 154 mg/dL (74-106)
[2022-08-13 06:44] LABS: Anion Gap 7 (5-15); BUN 19 mg/dL (7-18); BUN/Creat Ratio 24.6 RATIO (10-20); Calcium,Total 8.4 mg/dL (8.5-10.1); Chloride 105 mmol/L (98-107); Creatinine, Serum 0.77 mg/dL (0.55-1.02); EST Glomerular Filtration Rate 79 mL/min (>60); Est Glom Filt Rate - Afr Amer 95 mL/min (>60); Estimated Creatinine Clearance 52.81 ml/min; Glucose 173 mg/dL (74-106); Sodium Level 139 mmol/L (136-145)
[2022-08-13] MEDS: Glimepiride 2 MG Tablet PO ×2 (09:12→17:00)
[2022-08-13] MEDS: metFORMIN HCl 500 MG Tablet PO ×2 (09:12→17:01)
[2022-08-13] MEDS: Pioglitazone Hydrochloride 15 MG Tablet PO (09:13)
[2022-08-13] MEDS: Nystatin Powder 15gm Bottle 1 APPLIC TOPICAL ×2 (09:13→20:00)
[2022-08-13] MEDS: Menthol/Lanolin/Calamine/Znox 113 GM Tube 1 APPLIC TOPICAL ×2 (09:13→20:00)
[2022-08-13] MEDS: amLODIPine 5 MG Tablet PO (09:21)
[2022-08-13] MEDS: Meclizine HCl 25 MG Tablet PO (09:21)
[2022-08-13 16:00] VITALS: BP 137/47; PULSE 55; RESP 17; TEMP 36.6; O2SAT 97
[2022-08-13 17:01] VITALS: PULSE 62
[2022-08-13] MEDS: cycloBENZAPRine HCl 10 MG Tablet PO (17:06)
[2022-08-13] MEDS: Nortriptyline 10 MG Capsule PO (19:58)
[2022-08-13] MEDS: Atorvastatin Calcium 10 MG Tablet PO (19:58)
[2022-08-14 06:28] LABS: Bedside Glucose 169 mg/dL (74-106)
[2022-08-14 06:30] VITALS: BP 144/70; PULSE 91
[2022-08-14] MEDS: Venlafaxine XR 150 MG Capsule PO (06:30)
[2022-08-14] MEDS: Metoprolol(XL)Succ 25 MG Tablet PO ×2 (06:30→17:20)
[2022-08-14] MEDS: Fluticasone 0.05% 1 SPRAY NASAL.SRY 2 SPRAY NASAL (06:30)
[2022-08-14] MEDS: cycloBENZAPRine HCl 10 MG Tablet PO (06:34)
[2022-08-14] MEDS: Glimepiride 2 MG Tablet PO ×2 (09:12→17:19)
[2022-08-14] MEDS: metFORMIN HCl 500 MG Tablet PO ×2 (09:12→17:19)
[2022-08-14] MEDS: Pioglitazone Hydrochloride 15 MG Tablet PO (09:12)
[2022-08-14] MEDS: amLODIPine 5 MG Tablet PO (09:16)
[2022-08-14] MEDS: oxyCODONE 5 MG Tablet PO ×3 (12:11→21:11)
[2022-08-14] MEDS: Diphenoxylate/Atrop 1 Tablet PO ×2 (14:43→21:12)
[2022-08-14 14:54] VITALS: BP 121/49; PULSE 100; RESP 20; TEMP 36.3; O2SAT 94
[2022-08-14 17:20] VITALS: BP 133/57; PULSE 98
[2022-08-14 21:00] VITALS: PULSE 95; RESP 16; O2SAT 98
[2022-08-14] MEDS: Atorvastatin Calcium 10 MG Tablet PO (21:13)
[2022-08-14] MEDS: Nortriptyline 10 MG Capsule PO (21:13)
[2022-08-15 06:04] VITALS: BP 139/61; PULSE 89
[2022-08-15] MEDS: Fluticasone 0.05% 1 SPRAY NASAL.SRY 2 SPRAY NASAL (06:04)
[2022-08-15] MEDS: Metoprolol(XL)Succ 25 MG Tablet PO ×2 (06:04→17:08)
[2022-08-15] MEDS: Venlafaxine XR 150 MG Capsule PO (06:05)
[2022-08-15 06:32] LABS: Bedside Glucose 202 mg/dL (74-106)
[2022-08-15] MEDS: Nystatin Powder 15gm Bottle 1 APPLIC TOPICAL (10:14)
[2022-08-15] MEDS: metFORMIN HCl 500 MG Tablet PO ×2 (10:14→18:02)
[2022-08-15] MEDS: Menthol/Lanolin/Calamine/Znox 113 GM Tube 1 APPLIC TOPICAL (10:14)
[2022-08-15] MEDS: Pioglitazone Hydrochloride 15 MG Tablet PO (10:14)
[2022-08-15] MEDS: Glimepiride 2 MG Tablet PO ×2 (10:14→18:02)
[2022-08-15] MEDS: oxyCODONE 5 MG Tablet PO ×3 (10:20→23:23)
[2022-08-15] MEDS: Diphenoxylate/Atrop 1 Tablet PO (10:26)
[2022-08-15] MEDS: amLODIPine 5 MG Tablet PO (10:26)
--- NOTE | 2022-08-15 11:23 | NURSING ---
0745; Rapid response called on pt due to status change. BP 69/42, confirmed with manual pressure of 66/40. Hr 56, rr 24, spo2 88. 2 l of per nc placed on pt. Pt talking to nurse. Alert and orientated x 3. Forehead clammy. States vision is blurred. Falls asleep arouses with shaking shoulder. 0747; Dr. Patel and Dr. Bell in room. BP 68/46. Labs being drawn off picc line per Manas coating mixer supervisor. 0749; NS bolus 1000 mls wide open per picc line in r arm. BP 59/31. HR 58 EKG performed, showing afib. spo2 92 on 2 l per nc. 0754; Pt taken to ER via bed with nurse. Report called to ER per Ernie SEBASTIAN.
[2022-08-15] MEDS: traMADol 50 MG Tablet PO (13:08)
[2022-08-15 14:28] VITALS: BP 152/52; PULSE 97; RESP 17; TEMP 36.1; O2SAT 95
[2022-08-15 17:08] VITALS: BP 127/61; PULSE 97
[2022-08-15] MEDS: Atorvastatin Calcium 10 MG Tablet PO (20:52)
[2022-08-15] MEDS: Nortriptyline 10 MG Capsule PO (20:52)
[2022-08-16 06:23] LABS: Bedside Glucose 175 mg/dL (74-106)
[2022-08-16 06:35] VITALS: BP 136/63; PULSE 90
[2022-08-16] MEDS: Venlafaxine XR 150 MG Capsule PO (06:35)
[2022-08-16] MEDS: Metoprolol(XL)Succ 25 MG Tablet PO ×2 (06:35→17:06)
[2022-08-16] MEDS: Fluticasone 0.05% 1 SPRAY NASAL.SRY 2 SPRAY NASAL (06:35)
[2022-08-16] MEDS: metFORMIN HCl 500 MG Tablet PO ×2 (07:37→17:06)
[2022-08-16] MEDS: Glimepiride 2 MG Tablet PO ×2 (07:37→17:07)
[2022-08-16] MEDS: Pioglitazone Hydrochloride 15 MG Tablet PO (07:37)
[2022-08-16] MEDS: oxyCODONE 5 MG Tablet PO ×4 (07:41→20:24)
[2022-08-16] MEDS: amLODIPine 5 MG Tablet PO (07:41)
[2022-08-16] MEDS: Diphenoxylate/Atrop 1 Tablet PO ×2 (08:19→12:15)
[2022-08-16 14:14] VITALS: BP 122/55; PULSE 98; RESP 16; TEMP 36; O2SAT 95
[2022-08-16] MEDS: cycloBENZAPRine HCl 10 MG Tablet PO (14:18)
[2022-08-16 17:06] VITALS: PULSE 98
[2022-08-16] MEDS: Nortriptyline 10 MG Capsule PO (20:02)
[2022-08-16] MEDS: Atorvastatin Calcium 10 MG Tablet PO (20:02)
[2022-08-17] MEDS: Fluticasone 0.05% 1 SPRAY NASAL.SRY 2 SPRAY NASAL (06:24)
[2022-08-17] MEDS: Venlafaxine XR 150 MG Capsule PO (06:24)
[2022-08-17 06:25] VITALS: BP 146/51; PULSE 96
[2022-08-17] MEDS: Metoprolol(XL)Succ 25 MG Tablet PO ×2 (06:25→17:33)
[2022-08-17] MEDS: oxyCODONE 5 MG Tablet PO ×4 (06:39→20:18)
[2022-08-17] MEDS: Ondansetron ODT 4 MG Tablet PO (06:42)
[2022-08-17 06:54] LABS: Bedside Glucose 186 mg/dL (74-106)
[2022-08-17] MEDS: Glimepiride 2 MG Tablet PO ×2 (08:55→17:32)
[2022-08-17] MEDS: Pioglitazone Hydrochloride 15 MG Tablet PO (08:55)
[2022-08-17] MEDS: metFORMIN HCl 500 MG Tablet PO ×2 (08:55→17:32)
[2022-08-17] MEDS: Diphenoxylate/Atrop 1 Tablet PO (08:59)
[2022-08-17] MEDS: amLODIPine 5 MG Tablet PO (09:00)
[2022-08-17 11:19] VITALS: BMI 36.6
[2022-08-17] MEDS: cycloBENZAPRine HCl 10 MG Tablet PO (13:23)
[2022-08-17 15:10] VITALS: BP 117/57; PULSE 99; RESP 16; TEMP 35.7; O2SAT 95
--- NOTE | 2022-08-17 16:48 | CASEMGMT ---
Social Work IDT recommending setting DC date. Pt concerned about transportation d/t dtr leaving for vacation. With this information, SW contacted son, since dtr would be on vacation, to coordinate DC date. Transportation availability is different on a weekday vs weekend. SW had several phone calls back and forth with son. Son stated dtr could transport at 1300 sharp on 08/20 or he could come from out of town and transport 08/22 in the morning. Pt and IDT agreeable to DC 08/20. SW offered skilled HHC list with options. Pt has no preference and agreeable to [facility]. Pt confirmed needing a FWW. SW phoned referral to [facility] PT/OT/SN/BUI/SW. SW to assist with transition and needs at home. Pt remains forgetful with resources this worker has provided for homegoing. Sent referral to [facility] via [facility] for FWW. Plan: DC home alone 08/20, [facility] PT/OT/SN/BUI/SW, FWW Chela Fong, FIREBOAT OPERATORHouston DUPONT
[2022-08-17 17:33] VITALS: BP 119/56; PULSE 96
[2022-08-17] MEDS: Atorvastatin Calcium 10 MG Tablet PO (20:20)
[2022-08-17] MEDS: Nortriptyline 10 MG Capsule PO (20:20)
[2022-08-17 20:25] VITALS: PULSE 92; RESP 18; O2SAT 92
[2022-08-18] MEDS: oxyCODONE 5 MG Tablet PO ×4 (02:55→21:47)
[2022-08-18 05:04] VITALS: BP 144/70; PULSE 87
[2022-08-18] MEDS: Metoprolol(XL)Succ 25 MG Tablet PO ×2 (05:04→17:06)
[2022-08-18] MEDS: cycloBENZAPRine HCl 10 MG Tablet PO (05:04)
[2022-08-18] MEDS: Venlafaxine XR 150 MG Capsule PO (05:05)
[2022-08-18] MEDS: Fluticasone 0.05% 1 SPRAY NASAL.SRY 2 SPRAY NASAL (05:05)
[2022-08-18 06:36] LABS: Bedside Glucose 173 mg/dL (74-106)
[2022-08-18] MEDS: metFORMIN HCl 500 MG Tablet PO ×2 (08:59→17:07)
[2022-08-18] MEDS: Pioglitazone Hydrochloride 15 MG Tablet PO (08:59)
[2022-08-18] MEDS: Glimepiride 2 MG Tablet PO ×2 (08:59→17:07)
[2022-08-18] MEDS: amLODIPine 5 MG Tablet PO (09:05)
[2022-08-18] MEDS: Diphenoxylate/Atrop 1 Tablet PO (09:05)
[2022-08-18] MEDS: traMADol 50 MG Tablet PO (12:17)
[2022-08-18 13:47] VITALS: BP 139/75; PULSE 100; RESP 18; TEMP 36; O2SAT 95
[2022-08-18 17:06] VITALS: BP 139/75; PULSE 100
--- NOTE | 2022-08-18 20:35 | DS.PCM_ITS ---
Providers Date of Admission: 07/29/22 Primary Care Physician: Dr. Kanwal Guillermo MD Consultations 08/05/22 17:43 Consult: Pain Management Routine Consulting Provider: Jumana Jones Reason for Consult: Back pain after kyphoplasty. EMERGENT Consult: No MD Notified: Yes Date Notified: 08/06/22 Time Notified: 14:25 Method of Notification: Verbal Reason For Visit: HYPOPLASTY Diagnosis Discharge Diagnosis (1) Debility: Status: Acute Code(s): R53.81 - Other malaise (2) Syncope: Status: Acute Code(s): R55 - Syncope and collapse (3) Compression fracture of L1 lumbar vertebra: Status: Acute Code(s): S32.010A - Wedge compression fracture of first lumbar vertebra, initial encounter for closed fracture (4) Hyperlipidemia: Status: Acute Code(s): E78.5 - Hyperlipidemia, unspecified (5) Anxiety: Status: Acute Code(s): F41.9 - Anxiety disorder, unspecified (6) Chronic diarrhea: Status: Chronic Code(s): K52.9 - Noninfective gastroenteritis and colitis, unspecified (7) Allergic rhinitis: Status: Acute Code(s): J30.9 - Allergic rhinitis, unspecified (8) Diabetes mellitus: Status: Acute Code(s): E11.9 - Type 2 diabetes mellitus without complications (9) Dizziness: Status: Acute Code(s): R42 - Dizziness and giddiness (10) Diabetic neuropathy: Status: Acute Code(s): E11.40 - Type 2 diabetes mellitus with diabetic neuropathy, unspecified Plan 72 year old female with below past medical history hospitalized after fall, L1 compression fracture, underwent L1 kyphoplasty 07/28/[address] Jones, admitted to TCU with debility, here for rehabilitation, strengthening, prior to discharge home alone. * Debility - PT/OT. * Pain - Oxycodone 5mg q4h prn pain (1-10). * Bowel - Miralax 17gm bid, senna/colace 2 tablets bid, Lactulose 20gm po x 1 dose, Lomotil 1 tablet 4x/day prn. * Adult immunization - Administer pneumonia vaccine, covid19 vaccine, flu vaccine as appropriate. * DVT prophylaxis - HAS-BLED score 1 intermediate risk of bleeding, Elizabeth score 7 High risk of blood clots, overall risk intermediate, Rx Xarelto 10mg daily x 10 days. 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 * Hypertension - Metoprolol succinate 25mg bid, Amlodipine 5mg daily. * Hyperlipidemia - Atorvastatin 10mg qhs. * Muscle spasm - Flexeril 5mg tid prn. * Allergic rhinitis - Flonase 2 sprays nasal daily. * Diabetes Mellitus II - Metformin 500mg bidcm, Glimepiride 2mg bidcm, Pioglitazone 15mg daily, Ozempic 1mg per week. * Dizziness - Meclizine 25mg 4x/day prn. * Diabetic neuropathy - Nortriptyline 10mg qhs. * Nausea - Zofran 4mg q8h prn. 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 Medications at Discharge Home Medications Lovastatin [Mevacor] 40 mg PO QHS cholesterol 07/24/16 diphenoxylate-atropine 2.5 mg-0.025 mg tablet (Lomotil) 1 ea PO 4X/DAY PRN PRN Diarrhea 07/24/16 fluticasone propionate 50 mcg/actuation nasal spray,suspension 2 spray DAILY allergies 07/24/16 meclizine 25 mg chewable tablet 25 mg PO 4X/DAY PRN Vertigo 07/24/16 metformin 500 mg tablet 500 mg PO BIDCM diabetes 07/24/16 ondansetron 4 mg disintegrating tablet 4 mg PO Q8H PRN PRN Nausea #10 tabs 0 05/10/20 pioglitazone 15 mg tablet 15 mg PO DAILY diabetes 05/10/20 nortriptyline 25 mg capsule 25 - 50 mg PO QHS Depression 07/28/22 semaglutide 1 mg/dose (4 mg/3 mL) subcutaneous pen injector (Ozempic) 1 mg subcut QWEEK Blood sugar 07/28/22 venlafaxine 150 mg capsule,extended release 24 hr (Effexor XR) 150 mg PO DAILY Mood 07/28/22 glimepiride 2 mg tablet 2 mg PO BID diabetes 30 days #0 tabs 07/29/22 polyethylene glycol 3350 17 gram oral powder packet 17 g PO BID Stool softner 07/29/22 amlodipine 5 mg tablet 5 mg PO DAILY@0800 30 days #30 tabs 08/18/22 cyclobenzaprine 10 mg tablet 10 mg PO BID PRN PRN Muscle Spasm 30 days #60 tabs 08/18/22 metoprolol succinate 25 mg tablet,extended release 24 hr 25 mg PO BID 30 days #60 tabs 08/18/22 oxycodone 5 mg tablet 5 mg PO Q4H PRN PRN Pain Score 6-10 3 days #18 tabs 08/18/22 tramadol 50 mg tablet 50 mg PO Q6H PRN PRN Pain Score 1-5 3 days #12 tabs 08/18/22 Hospital Course Operations None Procedures - (L1 kyphoplasty.) Summary of Care Provided Minutes Spent on Discharge: 35 Hospital Course: 72 year old female with below past medical history hospitalized after fall, L1 compression fracture, underwent L1 kyphoplasty 07/28/[address] Jones, admitted to TCU with debility, here for rehabilitation, strengthening, prior to discharge home alone. On TCU, resident attempted to sell and distribute her home supply of Xanax. PCP notified, [place] Police notified. Discharge home alone 08/20/2022, [facility] PT/OT/SN/BUI/SW, Front wheeled walker. Physical Exam Const alert General Appearance: cooperative HEENT normocephalic Eyes PERRL and EOMs intact bilaterally Neck supple, no JVD and no carotid bruits Resp normal respiratory effort, normal air movement and clear to auscultation bilaterally Cardio regular rate and regular rhythm GI normal to inspection, nondistended, normoactive bowel sounds, non-tender and non-distended Extremity normal capillary refill General Extremity: Negative for edema Skin no rashes or lesions noted General Skin Exam: no breakdown Psych affect normal Appearance: appropriate Weight / BMI Weight Weight: 110.677 kg Body Mass Index (BMI) 36.6 ABG / Lab / Microbiology Data Result Diagrams: 08/13/22 05:28 08/13/22 05:28 Laboratory: Laboratory Results - last 24 hr 08/18/22 06:11: POC Glucose 173 H Microbiology: Microbiology 08/03/22 14:06 Nasal Secretion SARS-CoV-2 Antigen (Rapid) - Final 07/31/22 05:10 Nasal Secretion SARS-CoV-2 Antigen (Rapid) - Final D/C Instructions Discharge Diet: No restrictions Discharge Activity: Return to Normal Activity, May Shower and Use Walker Weight Bearing Status: Weight bearing as tolerated Call your doctor if you observe: Fever of 101 or Higher, Inability to urinate, Inability to have a bowel movement, Shortness of breath, Dizziness, Fainting spells, Swelling in the ankles, Chest pain and Uncontrolled pain Additional Instructions: Discharge home alone 08/20/2022, [facility] PT/OT/SN/BUI/SW, Front wheeled walker. Please Follow Up With: Dr Jones When: As scheduled. Meaningful Use Info Meaningful Use Diagnoses (Choose all that apply): None applicable Discharge Plan Admission Admit Date/Time: 07/29/22 17:55 Primary Reason for Your Visit: Debility. Attending Provider: Jagdeep Buchanan Chi Primary Care Provider: Kanwal Guillermo Consulting Providers: Jumana Jones Instructions Additional Instructions / Restrictions: Discharge home alone 08/20/2022, [facility] PT/OT/SN/BUI/SW, Front wheeled walker. Discharge Orders/Prescriptions Prescriptions: New cyclobenzaprine 10 mg Tablet 10 mg PO BID PRN PRN (Reason: Muscle Spasm) 30 Days Qty: 60 0RF amlodipine 5 mg Tablet 5 mg PO DAILY@0800 30 Days Qty: 30 0RF tramadol 50 mg Tablet 50 mg PO Q6H PRN PRN (Reason: Pain Score 1-5) 3 Days Qty: 12 0RF metoprolol succinate 25 mg Tablet Extended Release 24 Hr 25 mg PO BID 30 Days Qty: 60 0RF oxycodone 5 mg Tablet 5 mg PO Q4H PRN PRN (Reason: Pain Score 6-10) 3 Days Qty: 18 0RF Continued metformin 500 MG tablet 500 mg PO BIDCM diphenoxylate-atropine [Lomotil] 1 EACH tablet 1 ea PO 4X/DAY PRN PRN (Reason: Diarrhea) fluticasone propionate 1 SPRAY spray,suspension 2 spray NASAL DAILY meclizine 25 MG tablet,chewable 25 mg PO 4X/DAY PRN (Reason: Vertigo) Lovastatin [Mevacor] 40 MG tablet 40 mg PO QHS pioglitazone 15 MG tablet 15 mg PO DAILY ondansetron 4 MG tablet 4 mg PO Q8H PRN PRN (Reason: Nausea) Qty: 10 0RF venlafaxine [Effexor XR] 150 mg Capsule,Extended Release 24hr 150 mg PO DAILY nortriptyline 25 mg Capsule 25 - 50 mg PO QHS Ozempic 1 mg/dose (4 mg/3 mL) Pen Injector 1 mg SUBCUT QWEEK glimepiride 2 MG tablet 2 mg PO BID 30 Days Qty: 0 0RF polyethylene glycol 3350 17 gram powder in packet 17 g PO BID Discontinued metoprolol succinate 25 mg Tablet Extended Release 24 Hr 25 mg PO BID cyclobenzaprine 5 mg Tablet 5 mg PO TID PRN PRN (Reason: Muscle Spasm) Qty: 0 0RF oxycodone 5 mg tablet 5 mg PO TID PRN (Reason: pain) 3 Days Qty: 9 0RF alprazolam [Xanax] 0.5 MG tablet 0.5 mg PO TID PRN (Reason: Anxiety) 3 Days Qty: 6 0RF amlodipine 5 mg tablet 5 mg PO DAILY Referrals / Follow Up: Jumana Jones MD [Med Staff - Active Staff] - 08/23/22 2:15 pm Kanwal Guillermo MD [Primary Care Provider] - 08/25/22 2:40 pm Disposition Disposition (needs filled in before D/C Order can be placed): Home Health Service
[2022-08-18] MEDS: Nortriptyline 10 MG Capsule PO (21:47)
[2022-08-18] MEDS: Atorvastatin Calcium 10 MG Tablet PO (21:47)
[2022-08-19 06:20] LABS: Bedside Glucose 180 mg/dL (74-106)
[2022-08-19] MEDS: Venlafaxine XR 150 MG Capsule PO (06:47)
[2022-08-19 06:48] VITALS: BP 154/74; PULSE 90
[2022-08-19] MEDS: Metoprolol(XL)Succ 25 MG Tablet PO ×2 (06:48→17:04)
[2022-08-19] MEDS: Fluticasone 0.05% 1 SPRAY NASAL.SRY 2 SPRAY NASAL (06:48)
[2022-08-19] MEDS: Ondansetron ODT 4 MG Tablet PO (06:54)
[2022-08-19] MEDS: Diphenoxylate/Atrop 1 Tablet PO ×2 (06:54→12:43)
[2022-08-19] MEDS: Pioglitazone Hydrochloride 15 MG Tablet PO (08:09)
[2022-08-19] MEDS: Glimepiride 2 MG Tablet PO ×2 (08:09→17:04)
[2022-08-19] MEDS: metFORMIN HCl 500 MG Tablet PO ×2 (08:09→17:05)
[2022-08-19] MEDS: amLODIPine 5 MG Tablet PO (08:12)
--- NOTE | 2022-08-19 11:32 | CASEMGMT ---
Social Work BIMS () and PHQ-9 (04/16) completed for MDS assessment. Chela Fong MSW DRY HOUSE TENDER
[2022-08-19] MEDS: oxyCODONE 5 MG Tablet PO (11:41)
--- NOTE | 2022-08-19 12:05 | MDS.RN ---
Pain interview for DIMITRI 08/20/22 completed for the MDS.
[2022-08-19 13:48] VITALS: BP 122/36; PULSE 93; RESP 18; TEMP 36.1; O2SAT 94
[2022-08-19] MEDS: cycloBENZAPRine HCl 10 MG Tablet PO (14:28)
[2022-08-19 17:04] VITALS: PULSE 88
[2022-08-19] MEDS: Atorvastatin Calcium 10 MG Tablet PO (21:43)
[2022-08-19] MEDS: Nortriptyline 10 MG Capsule PO (21:43)
[2022-08-20 05:37] LABS: Absolute Lymphocyte Count 1.06 X10^3/uL (0.83-4.51); Absolute Neutrophil Count 2.3 X10^3/uL (2.0-7.7); Basophil# 0.01 X10^3/uL; Basophil% 0.3 % (0-1); Eosinophil# 0.15 X10^3/uL; Eosinophils% 3.9 % (0-5); Hematocrit 32.9 % (37-47); Hemoglobin 10.9 g/dL (12.0-15.0); Lymphocyte # 1.06 X10^3/ul (0.83-4.51); Lymphocyte % 27.3 % (19-41); Mean Corp Hgb Conc 33.1 g/dL (32-36); Mean Corpuscular Volume 87.5 fL (81-99); Mean Platelet Vol. 10.3 fl (6.2-12.0); Monocyte# 0.31 X10^3/uL; NRBC Flagged by Analyzer 0 % (0-5); Neutrophil # 2.34 X10^3/uL (2.7-7.7); Neutrophil % 60.2 % (47-70); Platelet Count 191 K/mm3 (150-450); RBC Distribution Width CV 15.1 % (11.6-14.6); RBC Distribution Width SD 48.5 fl (35.1-43.9); Red Blood Count 3.76 M/mm3 (4.2-5.4); White Blood Count 3.9 K/mm3 (4.4-11.0)
[2022-08-20 06:01] LABS: Anion Gap 6 (5-15); BUN 17 mg/dL (7-18); BUN/Creat Ratio 19.1 RATIO (10-20); Calcium,Total 8.8 mg/dL (8.5-10.1); Chloride 103 mmol/L (98-107); Creatinine, Serum 0.89 mg/dL (0.55-1.02); EST Glomerular Filtration Rate 66 mL/min (>60); Est Glom Filt Rate - Afr Amer 80 mL/min (>60); Estimated Creatinine Clearance 59.33 ml/min; Glucose 208 mg/dL (74-106); Potassium 4.4 mmol/L (3.5-5.1); Sodium Level 139 mmol/L (136-145)
[2022-08-20 06:37] LABS: Bedside Glucose 201 mg/dL (74-106)
[2022-08-20] MEDS: Fluticasone 0.05% 1 SPRAY NASAL.SRY 2 SPRAY NASAL (06:47)
[2022-08-20] MEDS: Venlafaxine XR 150 MG Capsule PO (06:47)
[2022-08-20 06:48] VITALS: BP 158/73; PULSE 94
[2022-08-20] MEDS: Metoprolol(XL)Succ 25 MG Tablet PO (06:48)
[2022-08-20] MEDS: Ondansetron ODT 4 MG Tablet PO (06:51)
[2022-08-20] MEDS: Glimepiride 2 MG Tablet PO (09:54)
[2022-08-20] MEDS: metFORMIN HCl 500 MG Tablet PO (09:54)
[2022-08-20] MEDS: Pioglitazone Hydrochloride 15 MG Tablet PO (09:55)
[2022-08-20] MEDS: oxyCODONE 5 MG Tablet PO (10:03)
[2022-08-20] MEDS: amLODIPine 5 MG Tablet PO (10:03)
[2022-08-20 10:05] VITALS: BP 139/68; PULSE 107; RESP 18; TEMP 36.2; O2SAT 96
[2022-08-20] MEDS: Menthol/Lanolin/Calamine/Znox 113 GM Tube 1 APPLIC TOPICAL (10:17)
[2022-08-20] MEDS: Nystatin Powder 15gm Bottle 1 APPLIC TOPICAL (10:18)
== END 2022-08-20 10:55 | disposition home health service (06) | DRG 561 ==
PROVIDERS: Admitting Provider Family Medicine Geriatric Medicine; PCP Internal Medicine; Visit Provider Family Medicine Geriatric Medicine
DX: S32.010D Wedge compression fracture of first lumbar vertebra, subsequent encounter for fracture with routine healing (principal); E11.40 Type 2 diabetes mellitus with diabetic neuropathy, unspecified; E78.00 Pure hypercholesterolemia, unspecified; F41.9 Anxiety disorder, unspecified; K52.9 Noninfective gastroenteritis and colitis, unspecified; J30.9 Allergic rhinitis, unspecified; W19.XXXD Unspecified fall, subsequent encounter; Z79.84 Long term (current) use of oral hypoglycemic drugs; Z79.899 Other long term (current) drug therapy; Z86.718 Personal history of other venous thrombosis and embolism; F32.A Depression, unspecified
CPT/HCPCS: 36415; 80048; 82962; 85025; 87811; 92523; 97110; 97116; 97162; 97166; 97530; 97535; 97802

== ENCOUNTER 2022-11-15 15:25 | Emergency (ER) | payer MEDICARE, OTHER, SELFPAY ==
[2022-11-15 15:42] VITALS: BP 134/82; PULSE 109; RESP 20; TEMP 35.9; O2SAT 95; BMI 35.1
--- NOTE | 2022-11-15 15:51 | EDS_ITS ---
HPI History of Present Illness Chief Complaint: Weakness Informant: patient and EMS Narrative Narrative: 72-year-old female who lives alone states that she was feeling fine today, she went to stand up from a sitting position and suddenly felt dizzy which made her fall to the floor without injury. She states she was unable to get up despite multiple attempts simply due to to feeling dizzy each time she tried, which felt like she was moving and going to fall. She did not feel like she was going to pass out. Some nausea associated with this no vomiting or vision changes or peripheral neurologic symptoms. She was able to call EMS to bring her to the hospital because of this. She states she did have this long ago but does not deal with it often. She denies any recent illness or travel. She denies any associated earache, tinnitus, changes in her hearing or changes in her vision. [facility] Medical History Anxiety Anxiety Arthritis Back pain Blackout Diabetes Diabetes mellitus DVT (deep venous thrombosis) High cholesterol History of colon polyps History of IBS History of stress test Hyperlipidemia Non-smoker Post-menopausal Wears glasses Home Medications Lovastatin [Mevacor] 40 mg PO QHS cholesterol 07/24/16 [History Last Taken 07/25/22] diphenoxylate-atropine 2.5 mg-0.025 mg tablet (Lomotil) 1 ea PO 4X/DAY PRN PRN Diarrhea 07/24/16 [History Last Taken Unknown] fluticasone propionate 50 mcg/actuation nasal spray,suspension 2 spray DAILY allergies 07/24/16 [History Last Taken 07/25/22] metformin 500 mg tablet 500 mg PO BIDCM diabetes 07/24/16 [History Last Taken 07/25/22] ondansetron 4 mg disintegrating tablet 4 mg PO Q8H PRN PRN Nausea #10 tabs 05/10/20 [Rx Last Taken Unknown] pioglitazone 15 mg tablet 15 mg PO DAILY diabetes 05/10/20 [History Last Taken 07/25/22] nortriptyline 25 mg capsule 25 - 50 mg PO QHS Depression 07/28/22 [History Last Taken Unknown] semaglutide 1 mg/dose (4 mg/3 mL) subcutaneous pen injector (Ozempic) 1 mg subcut QWEEK Blood sugar 07/28/22 [History Last Taken 07/23/22] venlafaxine 150 mg capsule,extended release 24 hr (Effexor XR) 150 mg PO DAILY Mood 07/28/22 [History Last Taken Unknown] glimepiride 2 mg tablet 2 mg PO BID diabetes 30 days #0 tabs 07/29/22 [Rx Last Taken Unknown] polyethylene glycol 3350 17 gram oral powder packet 17 g PO BID Stool softner 07/29/22 [History Last Taken Unknown] amlodipine 5 mg tablet 5 mg PO DAILY@0800 30 days #30 tabs 08/18/22 [Rx Last Taken Unknown] cyclobenzaprine 10 mg tablet 10 mg PO BID PRN PRN Muscle Spasm 30 days #60 tabs 08/18/22 [Rx Last Taken Unknown] metoprolol succinate 25 mg tablet,extended release 24 hr 25 mg PO BID 30 days #60 tabs 08/18/22 [Rx Last Taken Unknown] oxycodone 5 mg tablet 5 mg PO Q4H PRN PRN Pain Score 6-10 3 days #18 tabs 08/18/22 [Rx Last Taken Unknown] tramadol 50 mg tablet 50 mg PO Q6H PRN PRN Pain Score 1-5 3 days #12 tabs 08/18/22 [Rx Last Taken Unknown] meclizine 25 mg chewable tablet 25 mg PO Q8H PRN PRN dizziness or vertigo #20 tabs 11/15/22 [Rx Last Taken Unknown] Allergy/AdvReac Type Severity Reaction Status Date / Time acetaminophen [From Vicodin] Allergy Unknown Verified 11/15/22 15:46 doxycycline Allergy Diarrhea Verified 11/15/22 15:46 hydrocodone [From Vicodin] Allergy Unknown Verified 11/15/22 15:46 ibuprofen [From Motrin] Allergy Unknown Verified 11/15/22 15:46 lovastatin [From Advicor] Allergy Unknown Verified 11/15/22 15:46 niacin [From Advicor] Allergy Unknown Verified 11/15/22 15:46 Surgical History History of colonoscopy with polypectomy History of total left knee replacement Hx laparoscopic cholecystectomy Hx of colonoscopy Hx of tubal ligation Social History adopted: Yes household members: none Smoking Status: Never smoker alcohol intake: never substance use type: does not use ROS ROS ED Constitutional Constitutional ED: Denies chills or fever(s) Eyes Eyes: Denies blurry vision, change in vision or diplopia ENT ENT ED: Reports vertigo; Denies ear discharge, headache(s), hearing loss, rhinorrhea, sore throat or tinnitus Cardiovascular Cardiovascular: Denies chest pain, lightheadedness, palpitations or syncope Respiratory/Chest Respiratory/Chest: Denies cough or dyspnea Gastrointestinal Gastrointestinal: Reports nausea; Denies abdominal pain, diarrhea or vomiting Genitourinary Genitourinary ED: Denies dysuria or hematuria Musculoskeletal Musculoskeletal: Denies back pain or neck pain Integumentary Denies abscess or rash Neurologic Neurologic: Denies headache(s), paresthesias or weakness Psychiatric Psychiatric: Denies anxiety or suicidal thoughts EXAM Physical Exam Const Vital Signs: 11/15/22 15:42 11/15/22 15:57 Temperature 96.6 F L Temperature Source Temporal Pulse Rate 109 H Respiratory Rate 20 H Respiratory Effort Normal Non-Labored Blood Pressure 134/82 H Blood Pressure Mean 99 Pulse Ox 95 Oxygen Delivery Method Room Air Positive well nourished and well developed General Appearance ED: well developed and NAD HEENT Reports TM's clear and moist mucous membranes normocephalic and atraumatic Tympanic Membrane ED: Yes TM's clear Eyes PERRL and EOMs intact bilaterally Eyes Narrative: Horizontal nystagmus is present, no vertical or rotatory nystagmus. Neck full ROM and supple Resp normal respiratory effort and clear to auscultation bilaterally Cardio regular rate, regular rhythm and no murmurs GI non-tender and non-distended Auscultation: normoactive bowel sounds Palpation: soft Back/Spine no CVA tenderness General Back: other FROM Extremity normal to inspection General Extremety ED: Negative for edema, pulses abnormal or tenderness General Extremity: Negative for edema or pulses abnormal Neuro oriented x3, CN's II-XII intact bilaterally and no sensory deficits noted Neuro Narrative: NIHSS 0. Normal [id number] and [id number] bilaterally. Positive Enma- Hallpike maneuver to the right but no symptoms to the left. After positive maneuver and sitting patient up symptomatic, she has an abnormal jolt test. Sensorium / Orientation: awake and alert Motor Exam: strength 5/5 throughout Skin no rashes or lesions noted and no wounds MDM MDM MDM Narrative Medical decision making narrative: This is all consistent with acute peripheral vertigo. Her blood pressure is unremarkable and not significantly elevated. She has a normal neurologic exam, and her examination is consistent with peripheral etiology. EMS checked her blood sugar it was around 280. Therefore I do not think she needs any emergent ancillary testing. She was given meclizine and Zofran and monitored. On reevaluation we were able to get her up out of bed and she was able to walk without any difficulty or dizziness. Reassured, prescribed meclizine to use as needed and follow-up as needed. We discussed reasons to return. Discharge Plan Triage Chief Complaint: Weakness ED Provider: Kayden Daniels Dx/Rx/DC Orders Clinical Impression: Benign paroxysmal positional vertigo of right ear Instructions: ED BPV Vertigo Prescriptions: Continued metformin 500 MG tablet 500 mg PO BIDCM diphenoxylate-atropine [Lomotil] 1 EACH tablet 1 ea PO 4X/DAY PRN PRN (Reason: Diarrhea) fluticasone propionate 1 SPRAY spray,suspension 2 spray NASAL DAILY Lovastatin [Mevacor] 40 MG tablet 40 mg PO QHS pioglitazone 15 MG tablet 15 mg PO DAILY ondansetron 4 MG tablet 4 mg PO Q8H PRN PRN (Reason: Nausea) Qty: 10 0RF venlafaxine [Effexor XR] 150 mg Capsule,Extended Release 24hr 150 mg PO DAILY nortriptyline 25 mg Capsule 25 - 50 mg PO QHS Ozempic 1 mg/dose (4 mg/3 mL) Pen Injector 1 mg SUBCUT QWEEK glimepiride 2 MG tablet 2 mg PO BID 30 Days Qty: 0 0RF polyethylene glycol 3350 17 gram powder in packet 17 g PO BID cyclobenzaprine 10 mg Tablet 10 mg PO BID PRN PRN (Reason: Muscle Spasm) 30 Days Qty: 60 0RF amlodipine 5 mg Tablet 5 mg PO DAILY@0800 30 Days Qty: 30 0RF tramadol 50 mg Tablet 50 mg PO Q6H PRN PRN (Reason: Pain Score 1-5) 3 Days Qty: 12 0RF metoprolol succinate 25 mg Tablet Extended Release 24 Hr 25 mg PO BID 30 Days Qty: 60 0RF oxycodone 5 mg Tablet 5 mg PO Q4H PRN PRN (Reason: Pain Score 6-10) 3 Days Qty: 18 0RF Changed meclizine 25 MG tablet,chewable 25 mg PO Q8H PRN PRN (Reason: dizziness or vertigo) Qty: 20 0RF Primary Care Provider: Kanwal Guillermo Referrals: Kanwal Guillermo MD [Primary Care Provider] - 3-5 Days if not improving Disposition Disposition: Home, Self Care
[2022-11-15] MEDS: Ondansetron ODT 4 MG Tablet 8 MG PO (15:53)
[2022-11-15] MEDS: Meclizine HCl 25 MG Tablet PO (15:53)
--- NOTE | 2022-11-15 17:08 | ED.RN ---
pt ambulated without difficulty
[2022-11-15 17:47] VITALS: BP 135/78; PULSE 60; RESP 18; TEMP 36.7
== END 2022-11-15 17:48 | disposition home or self-care (01) ==
PROVIDERS: Emergency Provider Emergency Medicine; PCP Internal Medicine; Visit Provider Emergency Medicine
DX: H81.11 Benign paroxysmal vertigo, right ear (principal); E11.9 Type 2 diabetes mellitus without complications; E78.00 Pure hypercholesterolemia, unspecified; Z79.84 Long term (current) use of oral hypoglycemic drugs; Z79.85 Long-term (current) use of injectable non-insulin antidiabetic drugs
CPT/HCPCS: 99284

== ENCOUNTER 2023-01-14 06:20 | Emergency (ER) | payer MEDICARE, OTHER, SELFPAY ==
[2023-01-14 06:21] VITALS: BP 140/112; PULSE 100; RESP 16; TEMP 35.7; O2SAT 96; BMI 34.8
--- NOTE | 2023-01-14 06:34 | RAD_ITS ---
EXAM: XR CHEST, 1 VIEW CLINICAL INDICATION: fall fall TECHNIQUE: Frontal view of the chest. COMPARISON: CT scan chest 07/26/2022. FINDINGS: LUNGS AND PLEURAL SPACES: Unremarkable. No consolidation or edema. No pneumothorax. No effusion. HEART: Unremarkable. Cardiac silhouette not enlarged. MEDIASTINUM: Central airways and mediastinal contour are unremarkable. BONES/JOINTS: There is mild upper thoracic levoscoliosis. SOFT TISSUES: Unremarkable. UPPER ABDOMEN: There is chronic elevation of right hemidiaphragm. RAD/Chest 1 View (Portable) IMPRESSION: No evidence for acute cardiopulmonary pathology. Electronically Signed: Marcelo Marmolejo MD at 7:51 EDT Reading Location ID and State: [facility] / [place] , Service support ,
--- NOTE | 2023-01-14 06:34 | CT_ITS ---
EXAM: CT HEAD WITHOUT INTRAVENOUS CONTRAST CLINICAL INDICATION: fall fall TECHNIQUE: Multiple axial images were obtained of the head without intravenous contrast. This CT exam was performed using one or more of the following dose reduction techniques: automated exposure control, adjustment of the mA and/or kV according to patient size, and/or use of iterative reconstruction technique. RADIATION DOSE: CTDIvol = 44.99 mGy, DLP = 829.85 mGy-cm COMPARISON: CT scan brain 07/26/2022. FINDINGS: BRAIN AND EXTRA-AXIAL SPACES: There are microvascular changes in supratentorial white matter. No intra- or extra-axial hemorrhage. No evidence of acute infarct. No intracranial mass or mass effect. There is preservation of the britt/white matter interface. Posterior fossa structures are unremarkable. Ventricles are appropriate for age. No hydrocephalus. Basal cisterns are patent. BONES/JOINTS: Unremarkable. No discrete lytic or blastic abnormalities. VASCULATURE: There is atherosclerotic calcification of the vertebral and cavernous carotid arteries. SINUSES: Unremarkable as visualized. Clear. MASTOID AIR CELLS: Unremarkable. Clear. ORBITS: Visualized globes, extraocular muscles, optic nerves and retrobulbar fat appear unremarkable. CT/Brain/Head without Contrast IMPRESSION: 1. Chronic involutional changes of the brain. 2. No demonstrated acute intracranial process. Electronically Signed: Marcelo Marmolejo MD at 7:49 EDT Reading Location ID and State: [facility] / [place] , Service support ,
--- NOTE | 2023-01-14 06:35 | CT_ITS ---
EXAM: CT ABDOMEN AND PELVIS WITHOUT INTRAVENOUS CONTRAST CLINICAL INDICATION: fall, back pain fall, back pain TECHNIQUE: Helically acquired images were obtained of the abdomen and pelvis without intravenous contrast. This CT exam was performed using one or more of the following dose reduction techniques: automated exposure control, adjustment of the mA and/or kV according to patient size, and/or use of iterative reconstruction technique. RADIATION DOSE: CTDIvol = 19.12 mGy, DLP = 1103.80 mGy-cm COMPARISON: CT scan abdomen and pelvis 07/26/2022. FINDINGS: LOWER THORAX: There is chronic elevation of the dome of the right hemidiaphragm. There is mild right posterior basilar atelectasis. No cardiomegaly. No significant pericardial effusion. ABDOMEN: LIVER: Unremarkable. Homogeneous. GALLBLADDER AND BILE DUCTS: Gallbladder surgically absent. No intra- or extrahepatic biliary ductal dilation. PANCREAS: Unremarkable. No focal cystic mass. SPLEEN: There is moderate splenomegaly. ADRENALS: Unremarkable. No nodules. KIDNEYS AND URETERS: Unremarkable. Normal renal size and position. No hydronephrosis. STOMACH AND BOWEL: Unremarkable. No stomach or bowel distention. No focal inflammatory change. PELVIS: APPENDIX: The appendix is not identified. There is no evidence for acute appendicitis. BLADDER: Unremarkable. REPRODUCTIVE: Unremarkable as visualized. No mass. ABDOMEN and PELVIS: INTRAPERITONEAL SPACE: Unremarkable. No ascites or other fluid collection. No free air. BONES/JOINTS: There is a compression fracture the T11 vertebral body which was not present on the previous exam. There are fracture lines extending through the superior vertebral endplate as well as through the anterior-inferior corner of the vertebral body. There is 15% loss of anterior vertebral body height. There is no demonstrated involvement of the posterior cortex or posterior elements and this is likely to represent a stable fracture. There are old compression fractures of the L1 and L3 vertebral bodies which contain kyphoplasty cement. There are multilevel degenerative changes in the lumbar spine. No suspicious lytic or blastic abnormality. SOFT TISSUES: Unremarkable. No discrete abdominal or pelvic wall hernia. VASCULATURE: There is minimal atherosclerotic calcification of the abdominal aorta. Abdominal aorta is non-dilated. LYMPH NODES: Unremarkable. No enlarged lymph nodes. CT/Abdomen/Pelvis without Cont IMPRESSION: 1. Acute fracture of the T11 vertebral body with 50% loss of intervertebral body height. No visible involvement of middle or posterior columns of the spine and this is likely to represent a stable fracture. 2. No other evidence for acute pathology. No other evidence for significant acute internal injury. 3. Old compression fractures L1 and L3. Multilevel degenerative changes L-spine. 4. Moderate splenomegaly. 5. Previous cholecystectomy. 6. Mild atherosclerosis. Electronically Signed: Marcelo Marmolejo MD at 8:01 EDT Reading Location ID and State: [facility] / [place] , Service support ,
--- NOTE | 2023-01-14 06:37 | EX.ED.DYSGE1 ---
HPI History of Present Illness Chief Complaint: Weakness Detail of Chief Complaint: Fall, Weakness, shaky Informant: patient and EMS Narrative Narrative: Patient presents via EMS secondary to weakness. EMS was called to her home earlier in the night when she fell. She states she just felt weak all over. This has been progressive for quite some time. Patient denies any injury and they helped her back to bed. Her blood sugar reportedly was 60. They gave her glucose and the patient states she went back to bed. When she then woke and needed to go the bathroom she states she was shaky and too weak to get out of bed to go the bathroom so she called 911 again. Patient complains of some low back pain that is chronic. She does have a history of an L1 compression fracture. She states the pain is not worse after her fall. She did not strike her head or lose consciousness. [facility] Medical History (Updated 01/14/23 @ 08:[address] Claire Perdomo MD) Anxiety Arthritis Back pain Blackout Diabetes mellitus DVT (deep venous thrombosis) High cholesterol History of colon polyps History of IBS History of stress test Hyperlipidemia Non-smoker Post-menopausal Wears glasses Home Medications Lovastatin [Mevacor] 40 mg PO QHS cholesterol 07/24/16 [History Last Taken 07/25/22] diphenoxylate-atropine 2.5 mg-0.025 mg tablet (Lomotil) 1 ea PO 4X/DAY PRN PRN Diarrhea 07/24/16 [History Last Taken Unknown] fluticasone propionate 50 mcg/actuation nasal spray,suspension 2 spray DAILY allergies 07/24/16 [History Last Taken 07/25/22] metformin 500 mg tablet 500 mg PO BIDCM diabetes 07/24/16 [History Last Taken 07/25/22] ondansetron 4 mg disintegrating tablet 4 mg PO Q8H PRN PRN Nausea #10 tabs 05/10/20 [Rx Last Taken Unknown] pioglitazone 15 mg tablet 15 mg PO DAILY diabetes 05/10/20 [History Last Taken 07/25/22] nortriptyline 25 mg capsule 25 - 50 mg PO QHS Depression 07/28/22 [History Last Taken Unknown] semaglutide 1 mg/dose (4 mg/3 mL) subcutaneous pen injector (Ozempic) 1 mg subcut QWEEK Blood sugar 07/28/22 [History Last Taken 07/23/22] venlafaxine 150 mg capsule,extended release 24 hr (Effexor XR) 150 mg PO DAILY Mood 07/28/22 [History Last Taken Unknown] glimepiride 2 mg tablet 2 mg PO BID diabetes 30 days #0 tabs 07/29/22 [Rx Last Taken Unknown] polyethylene glycol 3350 17 gram oral powder packet 17 g PO BID Stool softner 07/29/22 [History Last Taken Unknown] amlodipine 5 mg tablet 5 mg PO DAILY@0800 30 days #30 tabs 08/18/22 [Rx Last Taken Unknown] cyclobenzaprine 10 mg tablet 10 mg PO BID PRN PRN Muscle Spasm 30 days #60 tabs 08/18/22 [Rx Last Taken Unknown] metoprolol succinate 25 mg tablet,extended release 24 hr 25 mg PO BID 30 days #60 tabs 08/18/22 [Rx Last Taken Unknown] oxycodone 5 mg tablet 5 mg PO Q4H PRN PRN Pain Score 6-10 3 days #18 tabs 08/18/22 [Rx Last Taken Unknown] tramadol 50 mg tablet 50 mg PO Q6H PRN PRN Pain Score 1-5 3 days #12 tabs 08/18/22 [Rx Last Taken Unknown] meclizine 25 mg chewable tablet 25 mg PO Q8H PRN PRN dizziness or vertigo #20 tabs 11/15/22 [Rx Last Taken Unknown] Allergy/AdvReac Type Severity Reaction Status Date / Time acetaminophen [From Vicodin] Allergy Unknown Verified 11/15/22 15:46 doxycycline Allergy Diarrhea Verified 11/15/22 15:46 hydrocodone [From Vicodin] Allergy Unknown Verified 11/15/22 15:46 ibuprofen [From Motrin] Allergy Unknown Verified 11/15/22 15:46 lovastatin [From Advicor] Allergy Unknown Verified 11/15/22 15:46 niacin [From Advicor] Allergy Unknown Verified 11/15/22 15:46 Surgical History History of colonoscopy with polypectomy History of total left knee replacement Hx laparoscopic cholecystectomy Hx of colonoscopy Hx of tubal ligation Social History adopted: Yes household members: none Smoking Status: Never smoker alcohol intake: never substance use type: does not use ROS ROS ED Constitutional Constitutional ED: Denies chills or fever(s) Eyes Eyes: Denies change in vision or discharge from eye(s) ENT ENT ED: Denies discharge from eye(s), rhinorrhea or sore throat Cardiovascular Cardiovascular: Denies chest pain or palpitations Respiratory/Chest Respiratory/Chest: Denies cough or dyspnea Gastrointestinal Gastrointestinal: Denies abdominal pain, nausea or vomiting Genitourinary Genitourinary ED: Denies dysuria Musculoskeletal Musculoskeletal: Reports back pain; Denies extremity pain Integumentary Denies Abrasions or rash Neurologic Neurologic: Reports weakness; Denies headache(s) Psychiatric Psychiatric: Denies anxiety or depression Allergic/Immunologic Allergic/Immunologic ED: Denies lip swelling or urticaria EXAM Physical Exam Const Vital Signs: 01/14/23 06:21 01/14/23 06:25 Temperature 96.3 F L Temperature Source Temporal Pulse Rate 100 Respiratory Rate 16 Respiratory Effort Normal Non-Labored Respiratory Pattern Normal Blood Pressure 140/112 H Blood Pressure Mean 121 Pulse Ox 96 Oxygen Delivery Method Room Air Positive well nourished and well developed General Appearance ED: well developed HEENT Reports normocephalic and head/scalp atraumatic Eyes PERRL and EOMs intact bilaterally Neck supple Chest Wall inspection of chest normal and palpation of chest normal Resp normal respiratory effort and clear to auscultation bilaterally Cardio regular rate and regular rhythm GI non-tender Auscultation: hypoactive bowel sounds Palpation: soft Back/Spine Back/Spine Narrative: Diffuse tenderness throughout lumbar spine. Extremity normal to inspection Neuro oriented x3 and no sensory deficits noted Neuro Narrative: Generalized weakness with no focal neurodeficit. Sensorium / Orientation: alert Psych mental status grossly normal Skin no rashes or lesions noted MDM MDM MDM Narrative Medical decision making narrative: Patient placed on ekg monitor tech. IV line initiated. EKG obtained to evaluate for cardiac arrhythmia/ischemia. Labwork obtained to evaluate for leukocytosis, anemia, and electrolyte derangement. Urinalysis obtained to evaluate for infection/hematuria. CT scan of the head obtained given patient's fall and dizziness. CT scan of the abdomen pelvis without contrast given her back pain and tenderness on exam. History & Record Review Discussion w/independent historian: EMS personnel and Patient Additional record(s) reviewed:: Prior inpatient record, Prior ED visit and Prior labs Lab Data Attestation: I reviewed the patient's lab results. Labs: Laboratory Results - last 24 hr 01/14/23 01/14/23 06:28 06:47 WBC 4.2 L RBC 4.20 Hgb 11.6 L Hct 35.9 L MCV 85.5 MCH 27.6 MCHC 32.3 RDW Std Deviation 41.9 RDW Coeff of [place] 13.5 Plt Count 271 MPV 10.1 Immature Gran % (Auto) 0.500 Neut % (Auto) 71.3 H Lymph % (Auto) 19.7 [place] % (Auto) 5.9 Eos % (Auto) 2.1 Baso % (Auto) 0.5 Absolute Neuts (auto) 3.0 Absolute Lymphs (auto) 0.83 Nucleated RBC % 0 Sodium 137 Potassium 3.8 Chloride 103 Carbon Dioxide 27.0 Anion Gap 7 BUN 8 Creatinine 1.02 Estim Creat Clear Calc 51.77 Est GFR (MDRD) Af Amer 69 Est GFR (MDRD) Non-Af 57 L BUN/Creatinine Ratio 7.8 L Glucose 155 H Calcium 8.2 L POC Glucose 161 H Radiography Chest X-Ray - ED: 1 View, Read by ED Physician and Chronic Changes (Elevated right hemidiaphragm. No focal infiltrate.) Diagnostic Testing: Clinical Impression(s) from Imaging Studies Brain CT 01/14/23 06:34 IMPRESSION: 1. Chronic involutional changes of the brain. 2. No demonstrated acute intracranial process. Electronically Signed: Marcelo Marmolejo MD at 7:49 EDT , Chest X-Ray 01/14/23 06:34 IMPRESSION: No evidence for acute cardiopulmonary pathology. Electronically Signed: Marcelo Marmolejo MD at 7:51 EDT , Abdomen/Pelvis CT 01/14/23 06:35 IMPRESSION: 1. Acute fracture of the T11 vertebral body with 50% loss of intervertebral body height. No visible involvement of middle or posterior columns of the spine and this is likely to represent a stable fracture. 2. No other evidence for acute pathology. No other evidence for significant acute internal injury. 3. Old compression fractures L1 and L3. Multilevel degenerative changes L-spine. 4. Moderate splenomegaly. 5. Previous cholecystectomy. 6. Mild atherosclerosis. Electronically Signed: Marcelo Marmolejo MD at 8:01 EDT Reading Location ID and State: [facility] / [place] , Service support , EKG Initial EKG: Attestation: I personally reviewed and interpreted this EKG as follows: Interpretation: Sinus Rhythm (Sinus at 92 with no acute ischemia.) Treatment and Re-Evaluation :: CBC reveals white count of 4.2 with a hemoglobin 11.6. 71% neutrophils noted. Chemistry studies unremarkable. Glucose is 155. Portable chest x-ray per my interpretation reveals elevated right hemidiaphragm. No focal infiltrate. EKG is sinus rhythm with no acute ischemia. CT scan of the head reveals chronic involutional changes with no acute intracranial process. CT of the abdomen pelvis reveals an acute fracture of the T11 vertebral body with 50% loss of height when compared to last imaging studies. Old compression fractures of L1 and L3 are noted. On repeat evaluation patient states she still feels intermittently dizzy. She states this does not feel like her vertigo. IV fluids are initiated. Patient was advised we need a urinalysis to see if she may have infection causing her symptoms. I have also discussed with nursing staff trying to stand patient at bedside to see how steady she is on her feet. Patient be signed out to oncoming physician for final disposition following urinalysis and ambulation attempt. Discharge Plan Triage Chief Complaint: Weakness ED Provider: Claire Perdomo Dx/Rx/DC Orders Clinical Impression: Compression fracture of T11 vertebra, Dizziness Prescriptions: No Action metformin 500 MG tablet 500 mg PO BIDCM diphenoxylate-atropine [Lomotil] 1 EACH tablet 1 ea PO 4X/DAY PRN PRN (Reason: Diarrhea) fluticasone propionate 1 SPRAY spray,suspension 2 spray NASAL DAILY Lovastatin [Mevacor] 40 MG tablet 40 mg PO QHS pioglitazone 15 MG tablet 15 mg PO DAILY ondansetron 4 MG tablet 4 mg PO Q8H PRN PRN (Reason: Nausea) Qty: 10 0RF venlafaxine [Effexor XR] 150 mg Capsule,Extended Release 24hr 150 mg PO DAILY nortriptyline 25 mg Capsule 25 - 50 mg PO QHS Ozempic 1 mg/dose (4 mg/3 mL) Pen Injector 1 mg SUBCUT QWEEK glimepiride 2 MG tablet 2 mg PO BID 30 Days Qty: 0 0RF polyethylene glycol 3350 17 gram powder in packet 17 g PO BID cyclobenzaprine 10 mg Tablet 10 mg PO BID PRN PRN (Reason: Muscle Spasm) 30 Days Qty: 60 0RF amlodipine 5 mg Tablet 5 mg PO DAILY@0800 30 Days Qty: 30 0RF tramadol 50 mg Tablet 50 mg PO Q6H PRN PRN (Reason: Pain Score 1-5) 3 Days Qty: 12 0RF metoprolol succinate 25 mg Tablet Extended Release 24 Hr 25 mg PO BID 30 Days Qty: 60 0RF oxycodone 5 mg Tablet 5 mg PO Q4H PRN PRN (Reason: Pain Score 6-10) 3 Days Qty: 18 0RF meclizine 25 MG tablet,chewable 25 mg PO Q8H PRN PRN (Reason: dizziness or vertigo) Qty: 20 0RF Primary Care Provider: Kanwal Guillermo Referrals: Kanwal Guillermo MD [Primary Care Provider] -
[2023-01-14 06:47] LABS: Bedside Glucose 161 mg/dL (74-106)
[2023-01-14 06:52] LABS: Absolute Lymphocyte Count 0.83 X10^3/uL (0.83-4.51); Basophil# 0.02 X10^3/uL; Basophil% 0.5 % (0-1); Eosinophil# 0.09 X10^3/uL; Eosinophils% 2.1 % (0-5); Hematocrit 35.9 % (37-47); Hemoglobin 11.6 g/dL (12.0-15.0); Lymphocyte # 0.83 X10^3/ul (0.83-4.51); Lymphocyte % 19.7 % (19-41); Mean Corp Hgb Conc 32.3 g/dL (32-36); Mean Corpuscular Hgb 27.6 pg (27.0-32.0); Mean Corpuscular Volume 85.5 fL (81-99); Mean Platelet Vol. 10.1 fl (6.2-12.0); Monocyte# 0.25 X10^3/uL; Monocyte% 5.9 % (0-10); NRBC Flagged by Analyzer 0 % (0-5); Neutrophil % 71.3 % (47-70); Platelet Count 271 K/mm3 (150-450); RBC Distribution Width CV 13.5 % (11.6-14.6); RBC Distribution Width SD 41.9 fl (35.1-43.9); White Blood Count 4.2 K/mm3 (4.4-11.0)
[2023-01-14] MEDS: 0.9% Normal Saline (1000mL) 1,000 ML 150 ML IV (07:00)
[2023-01-14 07:05] LABS: Anion Gap 7 (5-15); BUN 8 mg/dL (7-18); BUN/Creat Ratio 7.8 RATIO (10-20); Calcium,Total 8.2 mg/dL (8.5-10.1); Chloride 103 mmol/L (98-107); Creatinine, Serum 1.02 mg/dL (0.55-1.02); EST Glomerular Filtration Rate 57 mL/min (>60); Est Glom Filt Rate - Afr Amer 69 mL/min (>60); Estimated Creatinine Clearance 51.77 ml/min; Glucose 155 mg/dL (74-106); Potassium 3.8 mmol/L (3.5-5.1); Sodium Level 137 mmol/L (136-145)
[2023-01-14 09:23] LABS: Mucous, Urine 0 SEEN /hpf (<or=2+); Red Blood Cells-Urine 0 SEEN /hpf (0-5)
[2023-01-14 09:24] LABS: Color, Urine Yellow (Yellow); Glucose, Dipstick Normal (Normal); Ketone-Dipstick Negative (Negative); Leukocyte Esterase-Dipstick 500 /ul (Negative); Nitrite-Dipstick Negative (Negative); Occult Blood-Urine Negative /ul (Negative); Protein-Dipstick 15 mg/dl (Negative); Urine Bilirubin Dipstick Negative (Negative); Urine Clarity Clear (Clear); Urine Urobilinogen Normal (Normal)
[2023-01-14 09:31] LABS: Bacteria 1+ /hpf (None Seen); Squamous Epithelial Cells - UA 0-5 SEEN /hpf (5-10); White Blood Cells 25-50 SEEN /hpf (0-5)
[2023-01-14 09:42] VITALS: BP 154/78; PULSE 93; RESP 16; O2SAT 98
--- NOTE | 2023-01-14 09:46 | ED.RN ---
son called to verbalize concers: 9 or more falls in past month, needing ems assist to get up. few times were of floor for several hours. not compliant with pt/ot, diabetic medications and monitoring. frequently cancelling dr appts. not doing self care. not able to navigate home safely.
--- NOTE | 2023-01-14 09:52 | MRI_ITS ---
HISTORY: Acute change in vision evaluate for stroke, PT C/O DIZZINESS. TECHNIQUE: Multiplanar and multisequence MR images of the brain were obtained without contrast. 412 images. COMPARISON: CT same day. FINDINGS: BRAIN PARENCHYMA: Multiple foci and small zones of increased T2 FLAIR signal in the bilateral cerebral white matter and ana. No abnormal focus of restricted diffusion. No acute intracranial hemorrhage identified. CSF SPACES: Mild generalized loss. No significant midline shift or other mass effect.No extra-axial fluid collection. VASCULAR SYSTEM: Major intracranial flow voids are maintained. PARANASAL SINUSES AND MASTOID AIR CELLS: No significant air fluid levels. ORBITS: Symmetric contents. MRI/Brain without Contrast IMPRESSION: No evidence for acute infarct. Chronic involutional and white matter changes. Electronically Signed: Libby Celis MD at 12:15 EDT ,
[2023-01-14 13:08] VITALS: BP 155/85; PULSE 96; RESP 16; O2SAT 98
--- NOTE | 2023-01-14 13:30 | CM.ED ---
Social Work SW received consult from ED physician regarding patient needs. Pt has had repeated falls and family has concerns regarding her ability to live independently. ?SW introduced self and role to patient and daughter, Marycruz Sandoval, present in the room. SW gathered information from patient and daughter regarding patient?s functioning in the home. Pt reports she uses a walker and keeps a cane in her car. Pt reports she transports herself independently but does not drive if she is feeling dizzy. Pt?s daughter reports patient is not eating well or taking care of herself appropriately. Daughter noted poor hygiene, not eating much or eating junk food, and is concerned she is not taking her medication appropriately. Pt reports ?I am not hungry so I don?t eat all the time. It is the Ozempic.? Pt had low blood sugar upon arrival. Pt denies receiving any home health or assistance at home. Daughter reports pt calls ems frequently for assistance after a fall. SW discussed alert button and patient said, ?No it is too expensive.? Daughter reports patient could use more assistance and is interested in SNF. Pt reports she is agreeable to SNF placement. JUAN ANTONIO reviewed insurance and needs and collaborated with physician. Dr. Pagan reports patient does not have a medical necessity for admission. As pt has MCR A&B, a three day inpatient stay would be needed. Additionally, patient ambulated without issue while in ED. JUAN ANTONIO discussed with family that insurance requirements are not there for skilled coverage and discussed the ability to self-pay. Pt and daughter denies the ability to self-pay. Pt and daughter are requesting admission. SW explained that admission would be under observation status and would not meet MCR requirements even with admission. JUAN ANTONIO consulted sewing room supervisor to review appropriate patient options. [facility] services recommended. JUAN ANTONIO discussed HHC with Dr. Pagan who was in agreement ordering HHC. JUAN ANTONIO discussed with patient who is in agreement with [facility] services. JUAN ANTONIO provided patient with a list of HHC providers according to patient?s insurance. Pt reports list not necessary, she would like [facility]. JUAN ANTONIO left list with patient for review if needed. JUAN ANTONIO home health referral with request for RN, PT, OT, and SW to evaluate and treat and evaluated for personal aide as well. JUAN ANTONIO additionally discussed whether Medicaid would be an option for patient and patient says she does not qualify due to income. SW encouraged patient to explore this option. JUAN ANTONIO also discussed possible meals delivered and direction home. Pt resistant to additional services, however this can be further addressed with [facility] services. Dyllan [facility] accepted patient and can come to residence tomorrow. SW called to notify daughter and received calls from son, Tank. Pt?s daughter initially agreeable to home health. Pt?s son is not agreeable to [facility] and believes admission, further medical testing, and SNF needed. SW reviewed MCR A&B rule and observation status. SW reviewed [facility] services and plan to go to the home tomorrow 01/15. Son called back and was unhappy regarding medical concerns and reports patient is not wording sentences correctly and has facial tick and patient needs admitted/further testing. Son requests to dispute ED discharge and would like to speak with someone. SW spoke with medical staff regarding concerns and nurse provided patient number for call back. As concerns are medical in nature they are not SW scope of practice and will need addressed by appropriate medical staff. Plan: Pt ultimately discharged with [facility] setup for 01/15/2023. Marlene Mckeon SUPERVISORY GEOGRAPHER, MANAGER OF MARKETING
[2023-01-14 15:00] VITALS: PULSE 85; RESP 14; O2SAT 93
[2023-01-14 15:02] LABS: Bedside Glucose 80 mg/dL (74-106)
[2023-01-14 16:47] VITALS: BP 150/75; PULSE 81; RESP 16; RESP 18; O2SAT 95
--- NOTE | 2023-01-14 16:48 | ED.RN ---
THIS RN SPOKE WITH PT AND HER DAUGHTER. PT UPSET WITH LENGTH OF STAY AND OUTCOME OF NOT BEING ADMITTED TO HOSPITAL. PT STATES THEY UNDERSTAND IT IS NOT NURSING STAFFS DOING BUT NONE THE LESS ARE STILL FRUSTRATED. THIS RN REITERATED SHE HAS AN APPT WITH HOME HEALTH AT 0900 TOMORROW FOR FURTHER EVALUATION. PT WHEELED OUT TO DAUGHTERS VEHICLE AND HELPED INSIDE WITHOUT ANY DIFFICULTY.
== END 2023-01-14 16:52 | disposition home or self-care (01) ==
PROVIDERS: Emergency Provider Emergency Medicine; PCP Internal Medicine; Visit Provider Emergency Medicine
DX: M48.54XA Collapsed vertebra, not elsewhere classified, thoracic region, initial encounter for fracture (principal); E11.9 Type 2 diabetes mellitus without complications; E78.00 Pure hypercholesterolemia, unspecified; R42 Dizziness and giddiness; Z79.899 Other long term (current) drug therapy; Z79.84 Long term (current) use of oral hypoglycemic drugs; Z79.85 Long-term (current) use of injectable non-insulin antidiabetic drugs; Z96.652 Presence of left artificial knee joint; Z90.49 Acquired absence of other specified parts of digestive tract; R53.1 Weakness
CPT/HCPCS: 70450; 70551; 71045; 74176; 80048; 81001; 82962; 85025; 93005; 96360; 96361; 99285; J7030; A4216

== ENCOUNTER 2023-01-17 09:13 | Emergency (ER) | payer MEDICARE, OTHER, SELFPAY ==
--- NOTE | 2023-01-17 09:24 | ED.RN ---
PT'S DAUGHTER ARRIVED AND STATED THE PT WS GOING TO [facility] AND NOT BEING SEEN HERE. PT WAS ASSISTED INTO THE WHEELCHAIR AND INTO DAUGHTERS VAN. PT WAS NOT SEEN BY A .
== END 2023-01-17 09:35 | disposition left against medical advice (07) ==
LOC: ED 09:35
PROVIDERS: PCP Internal Medicine
DX: R29.6 Repeated falls (principal)

== ENCOUNTER 2023-08-31 06:26 | Day surgery (SDC) | payer MEDICARE, OTHER, SELFPAY ==
--- NOTE | 2023-08-31 07:03 | PCM.PRE.AN2 ---
ASA Classification* ASA Classification ASA Classification: 3 Assessment & Plan Anesthesia* Anesthesia Assessment Anesthesia Assessment: Discussed sedation and/or anesthesia options, risks, benefits, and alternatives with patient/parents/legal guardian. Questions invited. The patient/parents/legal guardian/POA seems to understand and agrees to proceed with anesthesia plan. Reviewed the physical assessment, medical history, allergy history and patient home medications list prior to surgery/procedure/anesthetic and documented any changes. Performed airway and anesthesia risk assessments. 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 When Was Last Pacemaker Check QUESTION #4 FULL TEXT: You/Your Family Experience fever (hyperthermia) with Anesthesia Last Oral Intake Last Oral intake: Last Oral Intake NPO since Meds taken in AM with sips of water? Meds patient instructed to take am of surgery PONV PONV - gun barrel finisher: PONV - gun barrel finisher Female Yes 08/24/23 13:56 HX of Motion Sickness No 08/24/23 13:56 HX of N/V After Surgery No 08/24/23 13:56 Non-Smoker Yes 08/24/23 13:56 Duration of Surgery greater No 08/24/23 13:56 than 60 minutes Number of Risk Factors 2 08/24/23 13:56 PONV Score Moderate Risk 08/24/23 13:56 Height & Weight Height & Weight: Anesthesia: Height & Weight Height 1.74 m 06/22/23 10:24 Respiratory Assessment Respiratory Assessment - gun barrel finisher: Respiratory Tract Infection Hx - gun barrel finisher Hx Respiratory Tract Infection No 08/24/23 13:56 STOP Sleep Apnea STOP Sleep Apnea - gun barrel finisher: STOP Sleep Apnea - gun barrel finisher Hx Hypertension Yes: CONTROLLED WITH MED 08/24/23 13:56 Hx Sleep Apnea No 08/24/23 13:56 CPAP BIPAP Do you snore loudly (louder No 08/24/23 13:56 than talking or can be heard Do you often feel tired/ Yes 08/24/23 13:56 fatigued/ sleepy during daytime? Has anyone observed you stop No 08/24/23 13:56 breathing during sleep? STOP Results Positive 08/24/23 13:56 QUESTION #5 FULL TEXT : Do you snore loudly (louder than talking or can be heard through closed doors)? 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 Specify any problems Hx of Preganancy in last 3 No 08/24/23 13:56 Months Nurse Filling Out Transfusion DSCHRIBER 08/24/23 13:56 & Questions: Date: 08/24/23 08/24/23 13:56 Time: 13:59 08/24/23 13:56 Patient unable to answer at this time (ie. confused, unrespo /Reproduction History /Reproductive History - gun barrel finisher: /Reproductive Hx- gun barrel finisher Hx Now No 08/24/23 13:56 Gestational Age (in weeks): EDC: Hx Hx Para Hx Section SAB No 08/24/23 13:56 Active Medications Active Medications: Current Medications Generic Name Dose Route Start Last Admin Trade Name Freq PRN Reason Stop Dose Admin Lactated Ringer's 1,000 mls @ 15 mls/hr 08/31/23 06:45 IV .Q48H TIMOTEO Anesthesia Focused Assessment* Airway Assessment Mouth opens (cm): 3 Mallampati Score: II Focused Labs Anesthesia Preop lab: CBC WBC 3.0 K/mm3 (4.4-11.0) L 02/22/23 07:40 RBC 3.69 M/mm3 (4.2-5.4) L 02/22/23 07:40 Hgb 10.1 g/dL (12.0-15.0) L 02/22/23 07:40 Hct 31.9 % (37-47) L 02/22/23 07:40 Plt Count 200 K/mm3 (150-450) 02/22/23 07:40 CHEMISTRY Potassium 3.8 mmol/L (3.5-5.1) 02/22/23 07:40 Sodium 136 mmol/L (136-145) 02/22/23 07:40 BUN 13 mg/dL (7-18) 02/22/23 07:40 Creatinine 0.86 mg/dL (0.55-1.02) 02/22/23 07:40 Glucose 137 mg/dL (74-106) H 02/22/23 07:40 COAG PT 15.3 SECONDS (11.7-14.9) H 07/27/22 06:53 Review of Systems (Anesthesia) ROS Narrative System reviewed and no additional complaints, except as documented. [facility] Medical History Post-menopausal Wears glasses Ambulates with cane Seizures Dietary restriction Non-smoker Shortness of breath on exertion History of echocardiogram Cardiology follow-up encounter HTN (hypertension) Hx of atrial tachycardia Frequent falls Chronic GERD Vertigo Anxiety Arthritis High cholesterol DVT (deep venous thrombosis) Back pain Blackout History of IBS Hyperlipidemia History of colon polyps Diabetes mellitus Home Medications ?Medication ?Instructions ?Recorded ?Last Taken ?Type diphenoxylate-atropine 2.5 1 ea PO 4X/DAY PRN PRN Diarrhea 07/24/16 08/30/23 History mg-0.025 mg tablet (Lomotil) fluticasone propionate 50 2 spray DAILY allergies 07/24/16 08/30/23 History mcg/actuation nasal spray,suspension venlafaxine 150 mg 150 mg PO DAILY Mood 07/28/22 08/30/23 History capsule,extended release 24 hr (Effexor XR) meclizine 25 mg chewable tablet 25 mg PO Q8H PRN PRN dizziness or 11/15/22 08/30/23 Rx vertigo #20 tabs semaglutide 1 mg/dose (4 mg/3 mL) 1 mg subcut QWEEK 01/24/23 Unknown History subcutaneous pen injector (Ozempic) atorvastatin 10 mg tablet 10 mg PO QHS 06/01/23 08/30/23 History cyanocobalamin (vitamin B-12) 1,000 mcg PO DAILY 06/01/23 08/30/23 History 1,000 mcg capsule folic acid 1 mg tablet 1 mg PO DAILY 06/01/23 08/30/23 History levetiracetam 500 mg tablet 500 mg PO BID 06/01/23 08/31/23 History magnesium chloride 71.5 mg 71.5 mg PO DAILY 06/01/23 08/30/23 History (magnesium chloride) tablet,delayed release (Slow-Mag) metformin 500 mg tablet,extended 1,000 mg PO BID 06/01/23 08/30/23 History release 24 hr metoprolol succinate 25 mg 25 mg PO BID 06/01/23 08/30/23 History tablet,extended release 24 hr nortriptyline 25 mg capsule 50 mg PO QHS Depression 06/01/23 08/30/23 History pantoprazole 40 mg tablet,delayed 40 mg PO QDAY 06/01/23 08/31/23 History release tramadol 50 mg tablet 50 mg PO BID Pain Score 1-5 06/01/23 08/30/23 History Allergy/AdvReac Type Severity Reaction Status Date / Time hydrocodone (From Vicodin) Allergy Intermediate Abd Verified 08/31/23 07:02 cramps/diarrhea acetaminophen (From Vicodin) Allergy Mild Abd Verified 08/31/23 07:02 cramps/diarrhea doxycycline Allergy Diarrhea Verified 08/31/23 07:02 niacin (From Advicor) AdvReac Severe Hives Verified 08/31/23 07:02 zolpidem (From Ambien) AdvReac Severe Mental Verified 08/31/23 07:02 status change diclofenac (From Voltaren) AdvReac Intermediate Swelling Verified 08/31/23 07:02 fluoxetine (From Prozac) AdvReac Intermediate Abd Verified 08/31/23 07:02 cramps/diarrhea lovastatin (From Advicor) AdvReac Intermediate hives Verified 08/31/23 07:02 ibuprofen (From Motrin) AdvReac Mild Abd Verified 08/31/23 07:02 cramps/diarrhea Family History Mother Cancer Kidney Surgical History Hx of kyphoplasty History of cardiac radiofrequency ablation S/P ablation of ventricular arrhythmia History of total left knee replacement Hx of colonoscopy Hx laparoscopic cholecystectomy Hx of tubal ligation History of colonoscopy with polypectomy Social History adopted: Yes household members: none current occupational status: retired Smoking Status: Never smoker alcohol intake: never substance use type: does not use
[2023-08-31 07:04] VITALS: BP 132/76; PULSE 110; RESP 17; TEMP 36.6; O2SAT 100; BMI 29.8
[2023-08-31] MEDS: Lactated Ringers 1,000 ML 15 ML IV (07:08)
--- NOTE | 2023-08-31 07:13 | H&P.OPEN ---
HPI - General General Date of Service: 08/31/23 HPI Narrative VELMA AUGUSTINE, is a 73 F who presents for screening colonoscopy due to history of colon polyps. Patient does not know her family history as she is adopted. Patient has bowel movements daily denies any blood. Patient denies any chronic abdominal pain/nausea/vomiting. Patient is reflux controlled with Protonix FOR[facility]LY [facility] Medical History Post-menopausal Wears glasses Ambulates with cane Seizures Dietary restriction Non-smoker Shortness of breath on exertion History of echocardiogram Cardiology follow-up encounter HTN (hypertension) Hx of atrial tachycardia Frequent falls Chronic GERD Vertigo Anxiety Arthritis High cholesterol DVT (deep venous thrombosis) Back pain Blackout History of IBS Hyperlipidemia History of colon polyps Diabetes mellitus Home Medications ?Medication ?Instructions ?Recorded ?Last Taken ?Type diphenoxylate-atropine 2.5 1 ea PO 4X/DAY PRN PRN Diarrhea 07/24/16 08/30/23 History mg-0.025 mg tablet (Lomotil) fluticasone propionate 50 2 spray DAILY allergies 07/24/16 08/30/23 History mcg/actuation nasal spray,suspension venlafaxine 150 mg 150 mg PO DAILY Mood 07/28/22 08/30/23 History capsule,extended release 24 hr (Effexor XR) meclizine 25 mg chewable tablet 25 mg PO Q8H PRN PRN dizziness or 11/15/22 08/30/23 Rx vertigo #20 tabs semaglutide 1 mg/dose (4 mg/3 mL) 1 mg subcut QWEEK 01/24/23 Unknown History subcutaneous pen injector (Ozempic) atorvastatin 10 mg tablet 10 mg PO QHS 06/01/23 08/30/23 History cyanocobalamin (vitamin B-12) 1,000 mcg PO DAILY 06/01/23 08/30/23 History 1,000 mcg capsule folic acid 1 mg tablet 1 mg PO DAILY 06/01/23 08/30/23 History levetiracetam 500 mg tablet 500 mg PO BID 06/01/23 08/31/23 History magnesium chloride 71.5 mg 71.5 mg PO DAILY 06/01/23 08/30/23 History (magnesium chloride) tablet,delayed release (Slow-Mag) metformin 500 mg tablet,extended 1,000 mg PO BID 06/01/23 08/30/23 History release 24 hr metoprolol succinate 25 mg 25 mg PO BID 06/01/23 08/30/23 History tablet,extended release 24 hr nortriptyline 25 mg capsule 50 mg PO QHS Depression 06/01/23 08/30/23 History pantoprazole 40 mg tablet,delayed 40 mg PO QDAY 06/01/23 08/31/23 History release tramadol 50 mg tablet 50 mg PO BID Pain Score 1-5 06/01/23 08/30/23 History Allergy/AdvReac Type Severity Reaction Status Date / Time hydrocodone (From Vicodin) Allergy Intermediate Abd Verified 08/31/23 07:02 cramps/diarrhea acetaminophen (From Vicodin) Allergy Mild Abd Verified 08/31/23 07:02 cramps/diarrhea doxycycline Allergy Diarrhea Verified 08/31/23 07:02 niacin (From Advicor) AdvReac Severe Hives Verified 08/31/23 07:02 zolpidem (From Ambien) AdvReac Severe Mental Verified 08/31/23 07:02 status change diclofenac (From Voltaren) AdvReac Intermediate Swelling Verified 08/31/23 07:02 fluoxetine (From Prozac) AdvReac Intermediate Abd Verified 08/31/23 07:02 cramps/diarrhea lovastatin (From Advicor) AdvReac Intermediate hives Verified 08/31/23 07:02 ibuprofen (From Motrin) AdvReac Mild Abd Verified 08/31/23 07:02 cramps/diarrhea Family History Mother Cancer Kidney Surgical History Hx of kyphoplasty History of cardiac radiofrequency ablation S/P ablation of ventricular arrhythmia History of total left knee replacement Hx of colonoscopy Hx laparoscopic cholecystectomy Hx of tubal ligation History of colonoscopy with polypectomy Social History adopted: Yes household members: none current occupational status: retired Smoking Status: Never smoker alcohol intake: never substance use type: does not use Past Medical/Surgical History Planned Operation Planned Operative Procedure(s): CSCOPE OA S.O.S: No Previous Hospitalizations/Surgeries HX Hospitalizations: Yes (HAD MULTIPLE FALLS LAST YR AND WAS HOSPITALIZED/DUE TO MED DOSAGES) HX of Surgeries: tubal ligation Laparoscopic cholecystectomy cscope left tkr Any Problems With Anesthesia: No You/Your Family Experience Fever (Hyperthermia) With Anes: No (ADOPTED) Cholinesterase deficiency: No Cardiovascular Hx Chest Pain within Last 2 months: No Hx of Irregular Heartbeat and/or Afib: No Hx Heart Attack: No Hx Congestive Heart Failure: No Hx Rheumatic Fever: No Hx Hypertension: Yes (CONTROLLED WITH MED) Hx Internal Defibrillator: No Hx Pacemaker: No Hx Cardiac Catheterization: No Hx Cardiac Surgery/Stents/Etc.: No Hx Stress Test: Yes (many yrs ago) Hx Pain in Legs when Walking/Leg Cramps: No Respiratory Chronic Cough: No HX of Shortness of Breath: Yes (sob with 2 flights of stairs) Hx Chronic Obstructive Pulmonary Disease (COPD): No Hx Asthma: No Hx Emphysema: No Hx Sleep Apnea: No Hx Respiratory Tract Infection/Cold (presently): No Do You Snore Loudly (louder than talking or can be heard): No Do You Often Feel Tired/ Fatigued/ Sleepy Dring Daytime?: Yes Has Anyone Observed You Stop Breathing During Sleep?: No Result (for STOP score): Positive Hx Smoking: No Smoking Status: Never smoker Gastrointestinal Controlled With Meds: No (no meds currently) Hx Gastrointestinal Disorders: Yes (ibs) Hx Gastrointestinal Bleed: No Hx Ulcer: No Hx Hiatal Hernia: No Difficulty Chewing/Swallowing: No Special diet followed at home: Yes (ada) Hx Unplanned Weight Loss of 20#: No HX Unplanned Weight Gain of 20#: No Neurological Hx Seizures: No HX Syncope/Blackout Spells/Unconsciousness: Yes (vertigo) Hx Transient Ischemic Attacks (TIA): No Hx Multiple Sclerosis: No Hx Parkinson's Disease: No Hx Head/Neck Injury: No Hx Headaches: No Hx Back Injury/Pain: Yes (lower back pain prn) Recent Onset of Speech Difficulty: No Restless Legs: No Does patient have nerve stimulator: No Blood Disorder Hx Leukemia: No Bleeding Tendencies: Yes (brusies easily) Hx Deep Vein Thrombosis: Yes (dvt to leg in the past) Hx High Cholesterol: Yes (on med) Blood Transmitted Disease: No Hx Hepatitis: No Hx Cirrhosis: No Hx Anemia: No Hx Blood Disorders: No Reproduction : No Is Patient Lactating: No Hx Hysterectomy: No Hx Tubal Ligation: Yes Are You Post Menopause: Yes Genitourinary Hx Renal Disease: No Hx Dialysis: No Musculoskeletal Hx Arthritis: Yes Hx Rheumatoid Arthritis: No Hx Gout: No Recent Onset of an Orthopedic Problem: No Endocrine Hx Diabetes: Yes Insulin: No Thyroid Disease: No Hx Steroid Therapy: No Psycho/Social Hx Substance Use: No Hx Alcohol Use: No Hx Anxiety: Yes (prn med) Hx Depression: Yes (on med) Hx Dementia: No Miscellaneous Hx Cancer: No Recent Exposure to Contagious Disease: No Hx of C-Diff: No Any Loose Teeth: No Allergies hydrocodone (From Vicodin) Allergy (Intermediate, Verified 08/31/23 07:02) Abd cramps/diarrhea acetaminophen (From Vicodin) Allergy (Mild, Verified 08/31/23 07:02) Abd cramps/diarrhea doxycycline Allergy (Verified 08/31/23 07:02) Diarrhea niacin (From Advicor) Adverse Reaction (Severe, Verified 08/31/23 07:02) Hives zolpidem (From Ambien) Adverse Reaction (Severe, Verified 08/31/23 07:02) Mental status change diclofenac (From Voltaren) Adverse Reaction (Intermediate, Verified 08/31/23 07:02) Swelling fluoxetine (From Prozac) Adverse Reaction (Intermediate, Verified 08/31/23 07:02) Abd cramps/diarrhea lovastatin (From Advicor) Adverse Reaction (Intermediate, Verified 08/31/23 07:02) hives ibuprofen (From Motrin) Adverse Reaction (Mild, Verified 08/31/23 07:02) Abd cramps/diarrhea Discharge Is Pt Admitted From a Retirement, or a Intermediate: No After D/C, Where Do you Plan to Go: Return Home From the [facility] History Number of Risk Factors: 5 Vital Signs Vital Signs Vital Signs: 08/31/23 07:04 08/31/23 07:04 Temperature 97.8 F Temperature Source Temporal Pulse Rate 110 H Respiratory Rate 17 Respiratory Pattern Normal Blood Pressure 132/76 H Blood Pressure Mean 94 Blood Pressure Source Monitor Blood Pressure Position Semi-Fowlers Blood Pressure Location Left Arm Pulse Ox 100 Oxygen Delivery Method Room Air Weight Weight: 202 lb Body Mass Index (BMI) 29.8 Physical Exam Const alert, oriented x3 and no apparent distress HEENT normocephalic and head/scalp atraumatic Resp normal respiratory effort Cardio regular rate GI soft to palpation and non-tender; Negative for non-distended Palpation: Negative for guarding Extremity no clubbing, cyanosis or edema Skin no rashes or lesions noted Neuro CN's II-XII intact bilaterally Psych mental status grossly normal Assessment & Plan Assessment/Plan (1) History of colon polyps: Surgery Risks - Colonoscopy I discussed with the patient the risks of the procedure: Yes Risks Include but are not Limited To: Risks include but are not limited to: Bleeding, perforation requiring further surgery, inability to complete colonoscopy requiring barium enema.
--- NOTE | 2023-08-31 07:30 | COLBX_PTH ---
PATIENT: VELMA AUGUSTINE LOC: EN U#:[id number] AGE/SX: 73/F ROOM: RE08/31/[address]: Dr. Marilynn Gallegos MD : 1950 BED: DIS: 08/31/2023 SPEC #: [id number] RECD: 08/31/23 11:35 STATUS: OMAR EMELINA #: [id number] ÁNGELA: 08/31/23 07:[address]: Marilynn Gallegos DEPT: SURGICAL PATHOLOGY RECD BY: Nieves Cho ENTERED: 08/31/23 12:16 SP TYPE: COLON BX OTHR DR: Dr. Kanwal Guillermo MD Tissues: A - Ascending colon B - Transverse colon C - Descending colon Procedures: Surgery Specimen Level IV HEADER OPERATION: Colonoscopy with polypectomy PRE-OP DIAGNOSIS: History of colonic polyps TISSUE SUBMITTED: A- Polyp ascending colon, B- Polyp transverse colon, C- Polyp descending colon MICROSCOPIC DIAGNOSIS A. Ascending colon polyp, biopsy: Fragments of tubular adenoma. B. Transverse colon polyp, biopsy: Fragments of tubular adenoma.C. Descending colon polyp, biopsy: Tubular adenoma. AM/mr 09/01/2023 MICROSCOPIC DESCRIPTION Slides are reviewed. GROSS DESCRIPTION A. Received in fixative is one container labeled with the patient's name and designated Polyp ascending colon. The specimen consists of multiple irregular fragments of light felipe soft tissue that in aggregate measure 0.5 x 0.5 x 0.1 cm. The specimen is totally submitted in one cassette. B. Received in fixative is one container labeled with the patient's name and designated Transverse colon polyp. The specimen consists of multiple irregular fragments of light felipe soft tissue that in aggregate measure 1.0 x 0.6 x 0.1 cm. The specimen is totally submitted in one cassette. C. Received in fixative is one container labeled with the patient's name and designated Polyp descending colon. The specimen consists of multiple irregular fragments of light felipe soft tissue that in aggregate measure 1.0 x 1.0 x 0.2 cm. The specimen is totally submitted in one cassette. AM/mr 08/31/2023 TC:5 CPT:32636k5
--- NOTE | 2023-08-31 08:12 | OP.CCLET_ITS ---
08/31/2023 Kanwal Guillermo [address] [place] [address] Re : Colonoscopy procedure for Tiana Sales Dear Dr. Guillermo This procedure was performed on Thursday, August 31, 2023. My impressions and recommendations are as follows: Impressions : - Hemorrhoids found on perianal exam. - Non-bleeding external and internal hemorrhoids. - Five 3 to 6 mm polyps in the descending colon, in the transverse colon and in the ascending colon, removed with a hot snare. Resected and retrieved. - One less than 5 mm polyp in the descending colon, removed with a cold biopsy forceps. Resected and retrieved. - The examination was otherwise normal. Recommendations : - Discharge patient to home. - Resume previous diet. - Continue present medications. - Await pathology results. - Repeat colonoscopy in 3 years for surveillance of multiple polyps. My findings are described in the full procedure note, which is enclosed. If I can be of further assistance, please feel free to contact me at Doctor phone number(s): , Work: . Sincerely, MD Marilynn Horowitz MD 08/31/2023 8:11:32 AM This report has been signed electronically.
--- NOTE | 2023-08-31 08:12 | OP.COLON_ITS ---
Patient Name: Tiana Sales Procedure Date: 08/31/2023 7:11 AM Date of : 1950 Age: 73 Procedure: Colonoscopy Indications: High risk colon cancer surveillance: Personal history of colonic polyps, Pt is adopted- unknown FH Providers: Marilynn Gallegos MD Referring MD: Kanwal Guillermo Medicines: Monitored Anesthesia Care Patient Profile: This is a 73 year old female. Last Colonoscopy: August 2018. Complications: No immediate complications. Procedure: Pre-Anesthesia Assessment: - Prior to the procedure, a History and Physical was performed, and patient medications and allergies were reviewed. The patient's tolerance of previous anesthesia was also reviewed. The risks and benefits of the procedure and the sedation options and risks were discussed with the patient. All questions were answered, and informed consent was obtained. Prior Anticoagulants: The patient has taken no anticoagulant or antiplatelet agents. ASA Grade Assessment: Per anesthesia. After reviewing the risks and benefits, the patient was deemed in satisfactory condition to undergo the procedure. After I obtained informed consent, the scope was passed under direct vision. Throughout the procedure, the patient's blood pressure, pulse, and oxygen saturations were monitored continuously. The Colonoscope was introduced through the anus and advanced to the cecum, identified by the appendiceal orifice, ileocecal valve and palpation. The colonoscopy was performed without difficulty. The patient tolerated the procedure well. The quality of the bowel preparation was good. Scope In: 7:31:46 AM Scope Withdrawal Time 0 hours 23 minutes 51 seconds Scope Out: 8:03:24 AM Total Procedure Duration Time 0 hours 31 minutes 38 seconds Findings: Hemorrhoids were found on perianal exam. Non-bleeding external and internal hemorrhoids were found. The hemorrhoids were medium-sized and Grade II (internal hemorrhoids that prolapse but reduce spontaneously). Five semi-pedunculated polyps were found in the descending colon, transverse colon and ascending colon. The polyps were 3 to 6 mm in size. These polyps were removed with a hot snare. Resection and retrieval were complete. A less than 5 mm polyp was found in the descending colon. The polyp was sessile. The polyp was removed with a cold biopsy forceps. Resection and retrieval were complete. The exam was otherwise without abnormality. Impression: - Hemorrhoids found on perianal exam. - Non-bleeding external and internal hemorrhoids. - Five 3 to 6 mm polyps in the descending colon, in the transverse colon and in the ascending colon, removed with a hot snare. Resected and retrieved. - One less than 5 mm polyp in the descending colon, removed with a cold biopsy forceps. Resected and retrieved. - The examination was otherwise normal. Recommendation: - Discharge patient to home. - Resume previous diet. - Continue present medications. - Await pathology results. - Repeat colonoscopy in 3 years for surveillance of multiple polyps. Procedure Code(s): --- Professional --- 02576, PT, Colonoscopy, flexible; with removal of tumor(s), polyp(s), or other lesion(s) by snare technique 74915, 59, Colonoscopy, flexible; with biopsy, single or multiple Diagnosis Code(s): --- Professional --- Z86.010, Personal history of colonic polyps K64.1, Second degree hemorrhoids D12.4, Benign neoplasm of descending colon D12.3, Benign neoplasm of transverse colon (hepatic flexure or splenic flexure) D12.2, Benign neoplasm of ascending colon CPT copyright 2021 [employer]. All rights reserved. The codes documented in this report are preliminary and upon stapler coil unit review may be revised to meet current compliance requirements. MD Marilynn Horowitz MD 08/31/2023 8:11:32 AM This report has been signed electronically. Number of Addenda: 0 Note Initiated On: 08/31/2023 7:11 AM
[2023-08-31 08:13] VITALS: BP 132/76; BP 138/72; PULSE 105; RESP 16; TEMP 36.5; O2SAT 94
[2023-08-31 08:15] VITALS: BP 106/68; BP 132/76; PULSE 108; RESP 16; O2SAT 97
--- NOTE | 2023-08-31 08:15 | PCM.POST.ANE ---
Anesthesia: Postop Eval I Current Vital Signs Temperature: 97.7 F Pulse Rate: 104 Blood Pressure: 106/68 Respiratory Rate: 16 Pulse Ox: 97 Oxygen Delivery Method: Room Air Assessment Airway patent: Yes Spontaneous unlabored respirations: Yes Mental status: Awake and Calm nausea: No Vomiting: No Anesthesia Complication: No Fluid Hydration Crystalloid volume administer (ml): 700 Total IV fluid infused: 700 Progress Note Anesthesia document: Postop Eval 1 completed: Yes
[2023-08-31 08:20] VITALS: BP 106/68; BP 126/77; BP 132/76; PULSE 104; PULSE 108; RESP 16; TEMP 36.5; O2SAT 94; O2SAT 97
[2023-08-31 08:25] VITALS: BP 116/77; BP 132/76; PULSE 108; RESP 16; TEMP 36.5; O2SAT 96
[2023-08-31 08:42] VITALS: BP 132/76
--- NOTE | 2023-08-31 08:46 | PCM.POSTANE2 ---
Anesthesia Postop Eval I Sum Postop Eval Completion status Anesthesia document: Postop Eval 1 completed: Yes Anesthesia Postop Eval I Summary Anesthesia Postop Eval I Summary: Anesthesia Postop Eval I: Assessment Summary Airway patent Yes 08/31/23 08:20 [email or web address] Spontaneous unlabored Yes 08/31/23 08:20 [email or web address] respirations Mental status Awake,Calm 08/31/23 08:20 [email or web address] nausea No 08/31/23 08:20 [email or web address] Vomiting No 08/31/23 08:20 [email or web address] Anesthesia Postop Eval I: Fluid Summary Crystalloid volume administer 700 08/31/23 08:20 [email or web address] (ml) Colloids volume administered ( ml) Blood Product volume administered (ml) Total IV fluid infused 700 08/31/23 08:20 [email or web address] Anesthesia Postop Eval I: Summary Notes Anesthesia Complication No 08/31/23 08:20 [email or web address] Anesthesia Complication Comment: Post-operative progress note Anesthesia: Postop Eval II Evaluation Mental status: Awake Pain Level: 0 nausea: No Vomiting: No Complications Anesthesia Complication: No
[2023-08-31 09:36] LABS: Bedside Glucose 187 mg/dL (74-106)
== END 2023-08-31 09:02 | disposition home or self-care (01) ==
LOC: EN 06:28 → AC 06:30
PROVIDERS: PCP Internal Medicine; Referring Provider Internal Medicine; Visit Provider Surgery
PROC: 0DJD8ZZ Inspection of Lower Intestinal Tract, Via Natural or Artificial Opening Endoscopic (ICD-10-PCS; CPT 45378; principal; 2023-08-31 07:25)
DX: Z12.11 Encounter for screening for malignant neoplasm of colon (principal); E11.9 Type 2 diabetes mellitus without complications; I10 Essential (primary) hypertension; K21.9 Gastro-esophageal reflux disease without esophagitis; Z79.84 Long term (current) use of oral hypoglycemic drugs; Z86.010 Personal history of colon polyps; E78.00 Pure hypercholesterolemia, unspecified; Z79.899 Other long term (current) drug therapy; K64.1 Second degree hemorrhoids; K64.4 Residual hemorrhoidal skin tags; D12.2 Benign neoplasm of ascending colon; D12.3 Benign neoplasm of transverse colon; D12.4 Benign neoplasm of descending colon; Z87.19 Personal history of other diseases of the digestive system
CPT/HCPCS: 45380; 45385; 82962; 88305; J7120; J2405